=== PATIENT | female | born 1990 | race Caucasian/White ===

== ENCOUNTER 2018-09-07 18:55 | Inpatient (IN) | payer OTHER, SELFPAY ==
[2014-11-22 17:53] VITALS: BMI 25.2
[2018-09-07] MEDS: Lactated Ringers 1,000 ML 50 ML IV (19:30)
[2018-09-07 19:45] VITALS: BMI 39.6
[2018-09-07 19:49] LABS: Absolute Lymphocyte Count 2.46 X10^3/ul (0.83-4.51); Basophil# 0.01 X10^3/uL; Basophil% 0.1 % (0-1); Eosinophil# 0.08 X10^3/uL; Eosinophils% 0.8 % (0-5); Hematocrit 38.7 % (37-47); Lymphocyte # 2.46 X10^3/ul (4.0); Lymphocyte % 23.9 % (19-41); Mean Corp Hgb Conc 33.6 g/gl (32-36); Mean Corpuscular Hgb 29.6 pg (27.0-32.0); Mean Corpuscular Volume 88.2 fL (81-99); Mean Platelet Vol. 12.4 fl (6.2-12.0); Monocyte# 0.74 X10^3/uL; Monocyte% 7.2 % (0-10); Neutrophil # 6.99 X10^3/uL (2.7-7.7); Neutrophil % 67.7 % (47-70); Platelet Count 177 K/mm3 (150-450); RBC Distribution Width CV 14.3 % (11.6-14.6); Red Blood Count 4.39 M/mm3 (4.2-5.4); White Blood Count 10.3 K/mm3 (4.4-11.0)
[2018-09-07 19:51] LABS: POSITIVE COUNT NO; POSITIVE DIFFERENTIAL NO; POSITIVE MORPHOLOGY NO
[2018-09-07] MEDS: 0.9% Normal Saline 100 ML IV.SOLN. INTRA-UTER (20:08)
--- NOTE | 2018-09-07 20:17 | HP.PCM_ITS ---
History Date of Admission: 09/07/18 Final SACHA: 08/31/18 Final SACHA Source: LMP Gestational age: 41 Weeks and 0 Days History of this : This is a 28 year-old, G 1P0 @ 41 weeks for IOL due to post dates. pt reports no bleeding, or LOF. was seen in office earlier today for Dec FM but reports good FM since having NST done earlier. pt has LGA baby Last EFW was 4376grams on 08/26/18. Allergies No Known Allergies Allergy (Verified 09/07/18 19:24) Home Medications: Home Medications Loratadine [Claritin] 10 mg PO DAILY 09/07/18 Pnv No.95/Ferrous Fum/Folic AC [ Caplet] 1 each PO DAILY 09/07/18 Pyridoxine HCl [Vitamin B-6] 100 mg PO DAILY 09/07/18 Smoking Status: Never smoker Alcohol: None Number of Fetus(es): 1 Heart Tracin mod kiera, + accels, No decels TOCO Analysis: occasional History Past Pregnancies: Past Pregnancies Delivery Date Name GA/Weeks Outcome Route Weight Gender Labor Length Anesthesia Delivery Location Provider FOB Labs: GBS Neg, O+, RUB imm, Syphilis neg, HIV neg, HEP B neg Expected Infant Delivery Method: Spontaneous Vaginal Review of Systems Constitutional: Denies: Anorexia Eyes: Denies: Blurred vision HEENT: Denies: Head Aches Gastrointestinal: Denies: Abdominal Pain Physical Exam General: Alert, Oriented x3 Abdomen: Soft, Non Tender, Gravid Neurological: Cranial nerves II-XII grossly intact LANGUAGE INSTRUCTOR: Normal external genitalia Estimated gestational size: Large for gestational age Presentation: Cephalic Cervix Dilation (cm): 2.5 Station: -1 Effacement (%): 70 Assessment/Plan This is a 28 year-old, G 2P1 @ 41 weeks here for IOL for post dates, LGA fetus 1) admit to L&D 2) monitor FHR/toco 3) pitocin and elmore (placed) 4) anticipate . 5) epidural if requested for pain 6) monitor VS
[2018-09-07] MEDS: Oxytocin 30 units/NS 500 ml 30 UNITS/500 ML IV.SOLN IV (20:22)
[2018-09-07 21:36] LABS: International Normalized Ratio 1.2; Prothrombin Time (Protime)PT. 15.1 SECONDS (11.7-14.9)
[2018-09-07 21:37] LABS: Partial Thromboplast Time 28.8 Seconds (24.1-36.2)
[2018-09-07 21:58] LABS: AST(SGOT) 40 U/L (15-37); Alanine Aminotransfer ALT/SGPT 20 U/L (13-56); Creatinine, Serum 0.67 mg/dL (0.55-1.02); EST Glomerular Filtration Rate 112 mL/min (>60); Est Glom Filt Rate - Afr Amer 135 mL/min (>60); Estimated Creatinine Clearance 145.55 ml/min; Protein, Urine (Random) 29.1 mg/dL (<11.9); Protein:Creat Ratio 436 mg/g CRE (0-200); Uric Acid 4.1 mg/dL (2.6-6.0)
[2018-09-07] MEDS: 0.9% Saline Lock 10 ML Syringe IV (22:38)
[2018-09-08] MEDS: Nalbuphine 10 MG/ML Ampul IV (06:45)
--- NOTE | 2018-09-08 08:36 | PCM.PN.BLA ---
Progress Note S: Patient comfortable O: cvx - 4-5/80/-1 AROM clear fluid. FSE & IUPC placed fhts 145 with mod variability, accels, variables tocos - Q3 min A&P: continue pitocin induction Patient plans for mirena IUD after 6wk check up and not immediately PP
[2018-09-08] MEDS: Lactated Ringers 1,000 ML 50 ML IV ×3 (10:26→17:56)
[2018-09-08] MEDS: fentaNYL-bupivacaine (epidural) 100 ML BAG EPIDURAL ×3 (11:14→21:25)
[2018-09-08] MEDS: Acetaminophen 325 MG Tablet PO ×2 (15:05→22:45)
--- NOTE | 2018-09-08 18:09 | PCM.PN.BLA ---
Progress Note S; Patient comfortable with epidural O: cvx - ant lip/C/0 fhts 140 with mod variability, accels tocos Q2-3 min A&P: labor down Anterior lip is reducible Anesthesia asked to decrease epidural
[2018-09-08] MEDS: Sodium Citrate/Citric Acid 30 ML UDC PO (23:22)
[2018-09-09] VITALS (25 sets, daily range): BP systolic 92–127; BP diastolic 44–75; PULSE 84–113; RESP 15–18; TEMP 35.9–37.3; O2SAT 94–100
[2018-09-09] MEDS: Oxytocin 30 units/NS 500 ml 30 UNITS/500 ML IV.SOLN 167 UNITS IV (00:10)
[2018-09-09] MEDS: Ketorolac 30 MG/ML Syringe IV ×4 (00:15→18:06)
--- NOTE | 2018-09-09 01:04 | OP.PCM_ITS ---
Report of Operation Date of Procedure: 09/09/18 Pre-Operative Diagnosis: Failure to descend Post-Operative Diagnosis: Same Description of Surgical Findings:: Normal uterus & right adnexa. Left adnexa surgically absent. bit setter: Sandra Silver Type of Anesthesia:: Epidural Delivery Final SACHA: 08/31/18 Gestational age: 41 Weeks and 2 Days Indications: Patient was c/c/+1 and pushing for 4 hours with minimal descent. Also fetus was suspected LGA. Indications for : Failure of Descent, Isolated Maternal Fever Description of Procedure: Patient taken to OR where epidural anesthesia was dosed. She was prepped and draped in normal sterile fashion in a dorsal lithotomy position with a leftward tilt. After ensuring adequacy of anesthesia the Pfannensteil skin incision was made and carried through to the underlying fascia with a bovie. The fascia was incised in the midline and carried laterally with the Mullins scissors. The rectus muscles were in the midline and the peritoneum was entered bluntly. The bladder flap was dissected down carefully with the Metzenbaum scissors and blunt dissection. The uterus was incised in a transverse fashion and then incision extended with cephalocaudad traction. The fetus was vertex and the head was brought to the incision with the RN elevating the head vaginally. With good fundal pressure the head delivered. Gentle traction placed on head to allow delivery of anterior & posterior shoulders. No excess traction placed on head. The body delivered easily. The 3VC cord was clamped and cut. The handed off to the waiting RN. The placenta was delivered w/ gentle traction and fundal massage and the uterus was exteriorized and cleared of all clots and debris. The uterine incision was closed with 1 vicryl suture in a running locked fashion. The bovie was used to further obtain further hemostasis of the uterine incision. The bladder was backfilled with saline to confirm integrity. A second imbricating layer of monocryl was placed. The uterus was returned to the peritoneal cavity. A figure of 8 suture was placed on the left side of the uterine incision to obtain further hemostasis. The pelvis was irrigated & then cleared of all clots and debris. The uterine incision was reexamined and found to be hemostatic. Some gelacio was placed over the uterine incision due to the denuded areas. The fascia was closed with looped PDS suture in a running standard fashion. The subcutaneous tissue was examined & any bleeding bovie cauterized. The subcutaneous tissue was reapproximated with plain gut suture. The skin was closed in a subcuticular fashion by the SEWING MACHINES SALESPERSON with me present in the labor and delivery suite. I performed the remainder of the procedure w/ assistance. Amniotic Membrane Rupture Type: Artificial Amniotic Fluid Description: Clear Placenta Disposition: [facility] Drain: Bryson to straight drain Fluids Replaced: 1500ml Cord Entanglement: None Nuchal Cord Compression: Without compression Cord Vessel Description: 3 Vessels Esitmated Blood Loss (ml): 800ml Infant Gender: Male (1 minute): 7 (5 minute): 9 Delayed cord clamping: No Pre-op Antibiotic Given: Clindamycin 600mg IV x1 and Gentamicin 1.5mg/kg IV x1 - azithromycin 500mg IV
--- NOTE | 2018-09-09 02:00 | NURSING ---
Decision made by Dr. Alatorre and pt on dayshift 09/08 to administer Mirena in office at 6 week appointment.
--- NOTE | 2018-09-09 04:00 | NURSING ---
Removed epidural cath, blue tip intact.
[2018-09-09] MEDS: Lactated Ringers 1,000 ML 100 ML IV ×2 (04:21→14:14)
--- NOTE | 2018-09-09 04:21 | NURSING ---
Report given to Connie GONCALVES
--- NOTE | 2018-09-09 13:08 | PCM.PN.OB ---
Subjective: Pt doing well. Not yet ambulating or voiding. Imer reg diet without N/V. No lightheadedness, dizziness, CP, SOB, leg pain. but zaki not interested in latching, working with . Pain is well controlled. - Physical Exam General: Alert, No apparent distress HEENT: Atraumatic Lungs: - - No increased resp effort Abdomen: Soft, Non Tender, - - Dressing clean and intact Extremities: No Calf Tenderness Skin: No rashes Neurological: Neuro grossly intact Psych/Mental Status: Normal Affect, Appropriate Vital Signs Temp Pulse Resp BP Pulse Ox 97.6 F L 84 18 100/54 L 98 09/09/18 08:00 09/09/18 08:00 09/09/18 08:00 09/09/18 08:00 09/09/18 08:00 Oxygen Delivery Method Room Air Weight: 292 lb 6.4 oz Body Mass Index (BMI) 39.6 Intake and Output for Last 24 Hours 09/07/18 09/08/18 09/09/18 23:59 23:59 23:59 Intake Total 5681 / 5681 2935 / 2935 Output Total 1850 / 1850 560 / 560 Balance 3831 / 3831 2375 / 2375 Medical Necessity - Tobacco Use Smoking Status: Never smoker Assessment/Plan Post-op from section for FTP - Pt doing well - Afebrile - , working with - Dispo: Routine post-op care
[2018-09-09] MEDS: 0.9% Saline Lock 10 ML Syringe IV (18:16)
--- NOTE | 2018-09-09 22:17 | NURSING ---
2145 Assisted pt up to chair for first time post op. Bryson removed and pericare done. Pt tolerated well.
[2018-09-10] MEDS: Ketorolac 30 MG/ML Syringe IV ×3 (00:09→12:01)
[2018-09-10] MEDS: 0.9% Saline Lock 10 ML Syringe IV ×4 (00:11→18:09)
[2018-09-10 00:14] VITALS: PULSE 106; RESP 18; O2SAT 99
[2018-09-10 01:57] VITALS: BP 125/67; PULSE 84; RESP 16; TEMP 36.5; O2SAT 99
[2018-09-10 06:53] LABS: Hematocrit 30.2 % (37-47); Hemoglobin 9.9 g/dl (12.0-15.0); Mean Corp Hgb Conc 32.8 g/gl (32-36); Mean Corpuscular Hgb 29.6 pg (27.0-32.0); Mean Corpuscular Volume 90.1 fL (81-99); Mean Platelet Vol. 12.8 fl (6.2-12.0); Platelet Count 138 K/mm3 (150-450); RBC Distribution Width CV 15.6 % (11.6-14.6); RBC Distribution Width SD 50.4 fl (35.1-43.9); Red Blood Count 3.35 M/mm3 (4.2-5.4); White Blood Count 16.8 K/mm3 (4.4-11.0)
[2018-09-10 06:56] LABS: Scan Indicated on CBC? Y/N NO
[2018-09-10 08:40] VITALS: BP 122/75; PULSE 98; RESP 18; TEMP 36; O2SAT 95
--- NOTE | 2018-09-10 09:56 | PCM.PN.OB ---
Subjective: Pt doing well this morning. Some discomfort from her incision after walking. Pain controlled with Toradol. Imer reg diet without N/V. Ambulating and spont voiding. Lochia normal. with some difficulty. Denies lightheadedness, dizziness, CP, SOB, leg pain. - Physical Exam General: Alert, No apparent distress HEENT: Atraumatic Lungs: - - No increased resp effort Abdomen: Soft, - - ATTP, dressing with slight shadowing on it and otherwise clean and intact Extremities: No Calf Tenderness, Edema - Trace edema bilateral LE's Skin: No rashes Neurological: Neuro grossly intact Psych/Mental Status: Normal Affect, Appropriate Vital Signs Temp Pulse Resp BP Pulse Ox 96.8 F L 98 18 122/75 H 95 09/10/18 08:40 09/10/18 08:40 09/10/18 08:40 09/10/18 08:40 09/10/18 08:40 Oxygen Delivery Method Room Air Weight: 292 lb 6.4 oz Body Mass Index (BMI) 39.6 Intake and Output for Last 24 Hours 09/08/18 09/09/18 09/10/18 23:59 23:59 23:59 Intake Total 5681 / 5681 4535 / 4535 Output Total 1850 / 1850 3160 / 3160 1300 / 1300 Balance 3831 / 3831 1375 / 1375 -1300 / -1300 Laboratory Tests Past 24 Hrs 09/10/18 06:00 WBC 16.8 H RBC 3.35 L Hgb 9.9 L Hct 30.2 L MCV 90.1 MCH 29.6 MCHC 32.8 RDW 15.6 H RDW Differential 50.4 H Plt Count 138 L MPV 12.8 H Medical Necessity - Tobacco Use Smoking Status: Never smoker Assessment/Plan POD#2 s/p PLTCS for FTP - AF, VSS - Doing well - Pain controlled - - Dispo: Routine post-op care. Pt desires to stay the night tonight
[2018-09-10 15:00] VITALS: BP 142/83; PULSE 95; RESP 18; TEMP 36.3; O2SAT 98
[2018-09-10] MEDS: Ibuprofen 600 MG Tablet PO (18:17)
[2018-09-10 19:34] VITALS: BP 153/88; PULSE 114; RESP 18; TEMP 37; O2SAT 96
[2018-09-11] VITALS (8 sets, daily range): BP systolic 120–148; BP diastolic 64–90; PULSE 92–105; RESP 16–18; TEMP 36.1–36.7; O2SAT 95–100
[2018-09-11] MEDS: Ibuprofen 600 MG Tablet PO ×3 (00:35→17:23)
--- NOTE | 2018-09-11 09:24 | PCM.PN.OB ---
Subjective: Pt doing well. Pain controlled. Ambulating and voiding without difficulty. Imer reg diet without N/V. Had BM. Denies lightheadedness, dizziness, REAL, CP, SOB, leg pain. with some difficulty. Lochia decreasing. - Physical Exam General: Alert, No apparent distress HEENT: Atraumatic Lungs: - - No increased resp effort Abdomen: Soft, Non Tender, - - fundus difficult to palpate given body habitus, dressing w/ minimal shadowing and otherwise c/d/i Extremities: No Calf Tenderness, Edema - trace edema bilaterally Skin: No rashes Neurological: Neuro grossly intact Psych/Mental Status: Normal Affect, Appropriate Vital Signs Temp Pulse Resp BP Pulse Ox 97.6 F L 96 16 142/89 H 96 09/11/18 07:45 09/11/18 07:45 09/11/18 07:45 09/11/18 07:45 09/11/18 07:45 Oxygen Delivery Method Room Air Weight: 292 lb 6.4 oz Body Mass Index (BMI) 39.6 Intake and Output for Last 24 Hours 09/09/18 09/10/18 09/11/18 23:59 23:59 23:59 Intake Total 4535 / 4535 Output Total 3160 / 3160 1300 / 1300 Balance 1375 / 1375 -1300 / -1300 Medical Necessity - Tobacco Use Smoking Status: Never smoker Assessment/Plan POD#3 s/p PLTCS - Occasional tachycardia. O2 saturations are good, and pt not requiring oxygen. Pt denies CP or SOB. Likely secondary to anemia. Continue to monitor today. Will give rx for iron supplement going home - BP's were initially normal , now has had a few mild range BP's. Will monitor today and if persistently mild, get pre-e labs and start Labetalol BID - Meeting milestones for discharge - Dispo: Routine post-op care today. Pt wants additional assistance today with . Cont to monitor BP, and will further determine discharge later today
--- NOTE | 2018-09-11 09:35 | DCINST_ITS ---
Discharge Diet: No Restrictions Discharge Activity: May not drive while taking narcotic pain medications., May Shower May resume sexual activity in: 4-6 weeks Weight Bearing Status: Weight bearing as tolerated Lifting Restrictions: No lifting greater than 20 pounds Call your doctor if your incision/area has: Sudden Increased Bleeding, Increased Pain/ Swelling, Increased Redness, Foul Smelling Discharge, Swelling at the incision site Call your doctor if you observe: Fever of 101 or Higher, Inability to urinate, Inability to have a bowel movement, Using more than one pad per hour, Shortness of breath, Dizziness, Chest pain, Increased palpitations (irregular heartbeat), Calf discomfort, Uncontrolled pain Suture Line Care: Avoid Pulling/Pushing, Avoid Pinching/Bending Remove Dressing in (days):: 7 Instructions: Discharge Instructions for Section () Additional Instructions: If you experience any of the following, contact your healthcare provider. * Bleeding that soaks a pad every hour for 2 hours * Fever 100.4 or higher * Unrelieved incision or abdominal pain * Swelling, redness, discharge or bleeding from your incision or episiotomy site * Your incision begins to separate * Problems urinating (including inability to urinate or burning while urinating). * Visual changes * Severe headache * Flu-like symptoms * Pain or redness in one of both of your breasts * Pain, warmth, tenderness or swelling in your legs, especially the calf area * Frequent nausea and vomiting * Symptoms of depression or anxiety If you experience any of the following, call 911 or go to the nearest Emergency Room. * Chest pain * Problems breathing * Seizure activity * Partial or complete paralysis of a body part, slurred speech, weakness or drooping of the face, or a sudden inability to walk or hold your balance Allergies/Adverse Reactions: Allergies No Known Allergies Allergy (Verified 09/07/18 19:24) Medications to take at Discharge Loratadine [Claritin] 10 mg PO DAILY 09/07/18 Pnv No.95/Ferrous Fum/Folic AC [ Caplet] 1 each PO DAILY 09/07/18 Pyridoxine HCl [Vitamin B-6] 100 mg PO DAILY 09/07/18 Ferrous Sulfate 325 mg PO DAILY #30 tab 09/11/18 Oxycodone HCl/Acetaminophen [Percocet 5/325] 1 tab PO Q6H PRN PRN 7 Days #28 tab 09/11/18 The following prescriptions were given: Oxycodone HCl/Acetaminophen [Percocet 5/325] 1 tab PO Q6H PRN PRN 7 Days #28 tab PRN Reason: Pain Ferrous Sulfate 325 mg PO DAILY #30 tab Follow-Up: Call to make an appointment with your doctor for an incision check in 1-2 weeks. You will also need a 6 week post- follow up appointment. Test results from this visit will be discussed in further detail at your follow- up appointment, if applicable. Please Follow Up With: Rito Alatorre When: 1 week for incision check and 6 weeks for visit Primary Care Physician: Kanchan Cunha MD [Primary Care Provider] -
--- NOTE | 2018-09-11 14:40 | NURSING ---
Bedside shift report given to Shannan Ramos RN. She will assume care of patient at this time.
[2018-09-11] MEDS: Labetalol 200 MG Tablet PO ×2 (17:20→22:11)
[2018-09-12 00:30] VITALS: BP 121/65; PULSE 85; RESP 18; TEMP 36.6
[2018-09-12 06:00] VITALS: BP 125/71; PULSE 87; RESP 18; TEMP 36.4
[2018-09-12 08:00] VITALS: BP 122/78; PULSE 87; RESP 20; TEMP 36.6; O2SAT 97
[2018-09-12] MEDS: Ibuprofen 600 MG Tablet PO (08:05)
--- NOTE | 2018-09-12 08:58 | PCM.PN.OB ---
Subjective: Doing well per patient and nursing staff. Ambulating and taking PO without difficulty. with shield and assistance from , doing well. Planning D/C home today - Physical Exam General: Alert, Oriented x3, Cooperative HEENT: Atraumatic, Normocephalic Neck: Trachea Midline Lungs: Clear to auscultation, Normal air movement, No rhonchi, No wheeze Cardiovascular: Regular rate, Regular Rhythm, No murmurs Abdomen: Bowel Sounds Present, Soft, - - Dressing dry and intact. Fundus firm 3 below U Extremities: Edema - +1 BLE edema, pitting. NO clonus Neurological: Deep Tendon Reflexes 2+/4 and Symmetrical Psych/Mental Status: Normal Affect, Appropriate Vital Signs Temp Pulse Resp BP Pulse Ox 97.9 F 87 20 H 122/78 H 97 09/12/18 08:00 09/12/18 08:00 09/12/18 08:00 09/12/18 08:00 09/12/18 08:00 Oxygen Delivery Method Room Air Weight: 292 lb 6.4 oz Body Mass Index (BMI) 39.6 Intake and Output for Last 24 Hours 09/10/18 09/11/18 09/12/18 23:59 23:59 23:59 Output Total 1300 / 1300 Balance -1300 / -1300 Medical Necessity - Tobacco Use Smoking Status: Never smoker Assessment/Plan A: POD #4 LTCS Gestational HTN P: 1) D/C home today 2) Follow up in 4 days for BP check in office. Labetalol 200mg PO BID for discharge. Will also follow up in 2 weeks and 6 weeks . 3) Discharge and instructions given. Doing well with and assistance from services.
--- NOTE | 2018-09-12 09:00 | PCM.DC.SUM ---
Discharge Date and Diagnosis Date of Admission: 09/07/18 Hospital Course and Treatment Summary of Care Provided: The patient is a 28 year old F [ admitted for IOL due to post dates at 41 weeks. ] Patient was c/c/+1 and pushing for 4 hours with minimal descent. Also fetus was suspected LGA. Failure of Descent, Isolated Maternal Fever. LTCS by . POD # 3 patient with elevated blood pressures. Started on Labetalol 100mg PO BID and discharge home with prescription. - Physical Exam Vital Signs Temp Pulse Resp BP Pulse Ox 97.9 F 87 20 H 122/78 H 97 09/12/18 08:00 09/12/18 08:00 09/12/18 08:00 09/12/18 08:00 09/12/18 08:00 Oxygen Delivery Method Room Air Weight: 292 lb 6.4 oz Body Mass Index (BMI) 39.6 Intake and Output for Last 24 Hours 09/10/18 09/11/18 09/12/18 23:59 23:59 23:59 Output Total 1300 / 1300 Balance -1300 / -1300 Discharge Diet: No Restrictions Discharge Activity: May not drive while taking narcotic pain medications., May Shower May resume sexual activity in: 4-6 weeks Weight Bearing Status: Weight bearing as tolerated Call your doctor if your incision/area has: Sudden Increased Bleeding, Increased Pain/ Swelling, Increased Redness, Foul Smelling Discharge, Swelling at the incision site Call your doctor if you observe: Fever of 101 or Higher, Inability to urinate, Inability to have a bowel movement, Using more than one pad per hour, Shortness of breath, Dizziness, Chest pain, Increased palpitations (irregular heartbeat), Calf discomfort, Uncontrolled pain Suture Line Care: Avoid Pulling/Pushing, Avoid Pinching/Bending Remove Dressing in (days):: 7 Home Medications: Medications to take at Discharge Loratadine [Claritin] 10 mg PO DAILY 09/07/18 Pnv No.95/Ferrous Fum/Folic AC [ Caplet] 1 each PO DAILY 09/07/18 Pyridoxine HCl [Vitamin B-6] 100 mg PO DAILY 09/07/18 Ferrous Sulfate 325 mg PO DAILY #30 tab 09/11/18 Ferrous Sulfate 325 mg PO DAILY #30 tab 09/11/18 Oxycodone HCl/Acetaminophen [Percocet 5/325] 1 tab PO Q6H PRN PRN 7 Days #28 tab 09/11/18 Oxycodone HCl/Acetaminophen [Percocet 5/325] 1 tab PO Q6H PRN PRN 7 Days #28 tab 09/11/18 Labetalol [Trandate (Beta Mat)] 200 mg PO BID #60 tab 09/12/18 Following Prescrptions Were Given to Patient: Oxycodone HCl/Acetaminophen [Percocet 5/325] 1 tab PO Q6H PRN PRN 7 Days #28 tab PRN Reason: Pain Oxycodone HCl/Acetaminophen [Percocet 5/325] 1 tab PO Q6H PRN PRN 7 Days #28 tab PRN Reason: Pain Ferrous Sulfate 325 mg PO DAILY #30 tab Ferrous Sulfate 325 mg PO DAILY #30 tab Labetalol [Trandate (Beta Mat)] 200 mg PO BID #60 tab Primary Care Physician: Kanchan Cunha MD [Primary Care Provider] - Please Follow Up With: Rito Alatorre When: 1 week for incision check and 6 weeks for visit Patient Instructions: Discharge Instructions for Section () Medical Necessity - Tobacco Use Smoking Status: Never smoker Meaningful Use Info Meaningful Use Diagnoses (Choose all that apply): None applicable
[2018-09-12] MEDS: Labetalol 200 MG Tablet PO (10:19)
== END 2018-09-12 11:40 | disposition home or self-care (01) | DRG 787 ==
PROVIDERS: Obstetrics & Gynecology; Admitting Provider Obstetrics & Gynecology; Family Provider Family Medicine; PCP Family Medicine; Referring Provider Obstetrics & Gynecology; Visit Provider Obstetrics & Gynecology
DX: O32.4XX0 Maternal care for high head at term, not applicable or unspecified (principal); O75.2 Pyrexia during labor, not elsewhere classified; O36.63X0 Maternal care for excessive fetal growth, third trimester, not applicable or unspecified; O48.0 Post-term pregnancy; Z3A.41 41 weeks gestation of pregnancy; Z37.0 Single live birth
CPT/HCPCS: 59025; 59050; 82565; 82570; 84156; 84450; 84460; 84550; 85025; 85027; 85610; 85730; 86850; 86900; 99218; J7120; A4216; G0378; J2405

== ENCOUNTER 2019-06-29 21:29 | Emergency (ER) | payer OTHER, SELFPAY ==
[2019-06-29 21:31] VITALS: BP 130/75; PULSE 125; RESP 16; TEMP 36.8; O2SAT 98; BMI 35.6
[2019-06-29 22:17] VITALS: RESP 16
[2019-06-29 22:19] LABS: Bacteria 0 SEEN /hpf (None Seen); Mucous, Urine 0 SEEN /hpf (<or=2+); White Blood Cells 0 SEEN /hpf (0-5)
[2019-06-29 22:21] VITALS: BP 147/92; PULSE 107; RESP 14; O2SAT 100
[2019-06-29 22:25] LABS: Color, Urine Yellow (Yellow); Glucose, Dipstick Normal (Normal); Ketone-Dipstick Negative (Negative); Leukocyte Esterase-Dipstick Negative /ul (Negative); Nitrite-Dipstick Negative (Negative); Occult Blood-Urine 50 /ul (Negative); Protein-Dipstick 15 mg/dl (Negative); Specific Gravity, Urine 1.015 (1.002-1.030); Urine Bilirubin Dipstick Negative (Negative); Urine Clarity Sl. Cloudy (Clear); Urine Urobilinogen Normal (Normal); Urine pH 6.5 (5.0 - 8.0)
[2019-06-29 22:27] LABS: Internal QC Validated? YES +Cl - CLEAR BKGD; Pregnancy, Urine Negative Negative
--- NOTE | 2019-06-29 22:29 | US_ITS ---
HISTORY: RLQ PAIN -TONIGHT SEVERE R/O TORSION prior appendectomy and left oophorectomy EXAMINATION: US Pelvis Non-OB Complete TECHNIQUE: Transvaginal (for optimal evaluation of the adnexa) pelvic ultrasound was performed. Grayscale, spectral waveform, and color flow Doppler evaluation of the adnexa. COMPARISON: CT abdomen and pelvis 11/22/2014 FINDINGS: The uterus is normal in size measuring 5.7 x 2.9 x 4.1 cm. The uterine myometrium shows a homogenous echotexture. Uniform endometrium which is normal in size measuring 0.4 cm in diameter. The right ovary is identified and shows normal size and echogenicity. The right ovary measures 3.4 x 1.7 x 2.1 cm. Right ovarian blood flow. No free fluid or acute pelvic disease identified. US/Transvaginal Non- IMPRESSION: 1. Normal uterus and right ovary. 2. No free fluid or acute pelvic disease identified. 3. Prior appendectomy and left oophorectomy. at 0036 Reported and signed by: Pedro Washington MD Electronically Signed: Pedro Washington, at 0:35 EST Tel , Service support ,
[2019-06-29 22:35] LABS: Red Blood Cells-Urine 0-5 SEEN /hpf (0-5)
[2019-06-29 22:36] LABS: Squamous Epithelial Cells - UA 0-5 SEEN /hpf (5-10)
[2019-06-29 23:06] LABS: Absolute Lymphocyte Count 2.36 X10^3/uL (0.83-4.51); Absolute Neutrophil Count 7.7 X10^3/uL (2.0-7.7); Basophil# 0.03 X10^3/uL; Basophil% 0.3 % (0-1); Eosinophil# 0.09 X10^3/uL; Eosinophils% 0.8 % (0-5); Hematocrit 43.6 % (37-47); Hemoglobin 14.3 g/dL (12.0-15.0); Lymphocyte # 2.36 X10^3/ul (4.0); Lymphocyte % 21.5 % (19-41); Mean Corp Hgb Conc 32.8 g/dL (32-36); Mean Corpuscular Hgb 28.2 pg (27.0-32.0); Monocyte% 7.3 % (0-10); NRBC Flagged by Analyzer 0 % (0-5); Neutrophil # 7.66 X10^3/uL (2.7-7.7); Neutrophil % 69.9 % (47-70); Platelet Count 208 K/mm3 (150-450); RBC Distribution Width CV 12.3 % (11.6-14.6); RBC Distribution Width SD 38.4 fl (35.1-43.9); Red Blood Count 5.07 M/mm3 (4.2-5.4)
--- NOTE | 2019-06-29 23:10 | ED.RN ---
PATIENT STUCK MULTIPLES TIMES, UNABLE TO GET IV. DR. BAILEY NOTIFIED. OKAY TO HOLD OFF ON STARTING AN IV FOR RIGHT NOW. PATIENT IS AGREEABLE TO THIS PLAN.
--- NOTE | 2019-06-29 23:23 | ED.DCSUM_ITS ---
History of Present Illness Chief Complaint: Flank Pain Informant: Patient Onset: Today Context: Gradual Onset Timing: Waxes and wanes Narrative: Patient is a 28-year-old female with history of left-sided ovarian torsion with subsequent surgical removal presenting with right-sided flank and pelvic pain. Patient states it feels like her prior torsion which was in 2014. Patient states that she gets waves of pain and has some radiation of pain down to her vagina. She denies any associated nausea or vomiting. She denies any urinary symptoms. Her last menstrual period was 1 month ago. She is on oral contraceptives and is not concerned for . She does not have a history of kidney stones. She denies any other complaints at this time. Past Medical History - Allergies and Home Meds Allergies/Adverse Reactions: Allergies No Known Allergies Allergy (Verified 06/29/19 21:33) Primary Care Physician: Kanchan Cunha MD [Primary Care Provider] - Past Medical History: - - History of ovarian torsion Surgical History: appendectomy, - - Oophorectomy- left Lives: With Family Smoking Status: Never smoker Review of Systems General: Denies: Chills, Fever, Sweats Eyes: Denies: Visual changes - bilaterally, Diplopia ENT: Denies: Rhinorrhea, Sore throat Cardiovascular: Denies: Chest pain, Palpitations Respiratory: Denies: Dyspnea, Cough, Dyspnea on exertion Gastrointestinal: Reports: Abdominal pain. Denies: Nausea, Vomiting, Diarrhea, Melena, Hematochezia Genitourinary: Reports: - - Vaginal pain. Denies: Dysuria, Hematuria, Frequency Musculoskeletal: Denies: Back pain, Extremity Pain Skin: Denies: Rash, Wounds Neurological: Denies: Headache, Weakness, Numbness Physical Exam Vital Signs/Narrative: Vital Signs Temp Pulse Resp BP Pulse Ox 06/29/19 22:21 107 H 14 147/92 H 100 06/29/19 22:17 16 06/29/19 21:31 98.3 F 125 H 16 130/75 H 98 Inital Vital Signs reviewed: Yes General: Well nourished, Well developed, No Acute Distress Head: Normocephalic, Atraumatic Eyes: Perrl, EOMI ENT: Moist mucous membranes, No rhinorrhea Neck: Supple, Nontender Cardiovascular: Regular rate, Regular rhythm, No murmurs Respiratory: No distress, CTA bilaterally, Chest nontender Abdomen: Soft, Nontender, Nondistended, Normal bowel sounds. Negative for: Guarding, Rebound tenderness Back: Nontender, Normal Inspection. Negative for: CVA tenderness Extremities: Nontender, No edema Skin: Normal color, No rash Neurological: Alert, Oriented x3, Cranial nerves II-XII grossly intact, Normal Strength, Normal Sensation Psychological: Normal affect, Normal Mood Diagnostic/Tx/Re-eval Clinical Impression(s) from Imaging Studies Transvaginal US 06/29/19 22:29 IMPRESSION: 1. Normal uterus and right ovary. 2. No free fluid or acute pelvic disease identified. 3. Prior appendectomy and left oophorectomy. at 0036 Reported and signed by: Pedro Washington MD Electronically Signed: Pedro Washington, at 0:35 EST Tel , Service support , Laboratory Data 06/29/19 06/29/19 06/29/19 22:10 22:10 22:52 WBC 11.0 RBC 5.07 Hgb 14.3 Hct 43.6 MCV 86.0 MCH 28.2 MCHC 32.8 RDW Std Deviation 38.4 RDW Coeff of Ophelia 12.3 Plt Count 208 MPV 11.0 Immature Gran % (Auto) 0.200 Neut % (Auto) 69.9 Lymph % (Auto) 21.5 Gaines % (Auto) 7.3 Eos % (Auto) 0.8 Baso % (Auto) 0.3 Absolute Neuts (auto) 7.7 Absolute Lymphs (auto) 2.36 Nucleated RBC % 0 Sodium Potassium Chloride Carbon Dioxide Anion Gap BUN Creatinine Estim Creat Clear Calc Est GFR (MDRD) Af Amer Est GFR (MDRD) Non-Af BUN/Creatinine Ratio Glucose Calcium Total Bilirubin AST ALT Alkaline Phosphatase Total Protein Albumin Globulin Albumin/Globulin Ratio Urine Color Yellow Urine Clarity Sl. Cloudy Urine pH 6.5 Ur Specific [place] 1.015 Urine Protein 15 H Urine Glucose (UA) Normal Urine Ketones Negative Urine Occult Blood 50 H Urine Nitrite Negative Urine Bilirubin Negative Urine Urobilinogen Normal Ur Leukocyte Esterase Negative Urine RBC 0-5 SEEN Urine WBC 0 SEEN Ur Squamous Epith Cells 0-5 SEEN Urine Bacteria 0 SEEN Urine Mucus 0 SEEN Urine Test Negative 06/29/19 22:52 WBC RBC Hgb Hct MCV MCH MCHC RDW Std Deviation RDW Coeff of Ophelia Plt Count MPV Immature Gran % (Auto) Neut % (Auto) Lymph % (Auto) Gaines % (Auto) Eos % (Auto) Baso % (Auto) Absolute Neuts (auto) Absolute Lymphs (auto) Nucleated RBC % Sodium 136 Potassium 5.0 Chloride 108 H Carbon Dioxide 23.0 Anion Gap 5 BUN 9 Creatinine 0.76 Estim Creat Clear Calc 128.31 Est GFR (MDRD) Af Amer 117 Est GFR (MDRD) Non-Af 96 BUN/Creatinine Ratio 11.8 Glucose 116 H Calcium 9.0 Total Bilirubin 0.30 AST 33 ALT 22 Alkaline Phosphatase 78 Total Protein 8.1 Albumin 3.4 Globulin 4.7 H Albumin/Globulin Ratio 0.7 L Urine Color Urine Clarity Urine pH Ur Specific [place] Urine Protein Urine Glucose (UA) Urine Ketones Urine Occult Blood Urine Nitrite Urine Bilirubin Urine Urobilinogen Ur Leukocyte Esterase Urine RBC Urine WBC Ur Squamous Epith Cells Urine Bacteria Urine Mucus Urine Test - Medical Decision Making Patient is evaluated for 1 day of right flank pain that seems to radiate to her vaginal area and has been worsening this evening. It seems to be colicky. Patient is very concerned because she has a history of ovarian torsion that she might be having another torsion. Pelvic ultrasound is obtained which does not show torsion and has normal blood flow to the right ovary. Patient not having any other vaginal symptoms. Urinalysis does show 50 blood with 0-5 red blood cells. Is otherwise normal. CBC and BMP are grossly unremarkable. Patient is counseled that this could be a kidney stone. She is offered a CT of the abdomen pelvis but declined stating she just like to go home and she is feeling better. Patient is given a dose of Tylenol emergency room. She was initially ordered morphine but declined it. Patient is well-appearing. She is hemodynamically stable. She is discharged home with instructions follow-up with her PCP. She will return the emergency room should she have worsening pain and like further evaluation for it. ED Disposition - Plan for ED Patient: Disposition: Home or Assisted Living Diagnosis: Right flank pain Instructions: FLANK PAIN, Uncertain Cause Referrals: Kanchan Cunha MD [Primary Care Provider] -
[2019-06-29 23:26] LABS: ALB/GLOB Ratio 0.7 RATIO (0.9-2.4); AST(SGOT) 33 U/L (15-37); Alanine Aminotransfer ALT/SGPT 22 U/L (13-56); Albumin, Serum 3.4 g/dL (3.2-5.0); Alkaline Phosphatase 78 U/L (45-117); Anion Gap 5 (5-15); BUN 9 mg/dL (7-18); BUN/Creat Ratio 11.8 RATIO (10-20); Chloride 108 mmol/L (98-107); Creatinine, Serum 0.76 mg/dL (0.55-1.02); EST Glomerular Filtration Rate 96 mL/min (>60); Est Glom Filt Rate - Afr Amer 117 mL/min (>60); Estimated Creatinine Clearance 128.31 ml/min; Globulin 4.7 g/dL (2.2-4.2); Glucose 116 mg/dL (74-106); Protein, Total 8.1 g/dL (6.4-8.2); Sodium Level 136 mmol/L (136-145)
[2019-06-29 23:53] VITALS: RESP 16
[2019-06-30] MEDS: Acetaminophen 500 MG Tablet 1000 MG PO (00:13)
[2019-06-30 00:20] VITALS: BP 129/83; PULSE 106; RESP 16; O2SAT 97
[2019-06-30 00:50] VITALS: RESP 16
== END 2019-06-30 00:52 | disposition home or self-care (01) ==
PROVIDERS: Emergency Provider Emergency Medicine; PCP Family Medicine
DX: R10.9 Unspecified abdominal pain (principal); Z90.721 Acquired absence of ovaries, unilateral; R10.2 Pelvic and perineal pain
CPT/HCPCS: 36415; 76830; 80053; 81001; 81025; 85025; 93976; 96361; 96374; 99283; J7030

== ENCOUNTER → 2020-05-06 12:08 | Outpatient (CLI) | payer OTHER, SELFPAY | PROVIDERS: PCP Family Medicine; Visit Provider Nurse Practitioner Family | DX: Z20.828 Contact with and (suspected) exposure to other viral communicable diseases (principal) | CPT/HCPCS: 87635; U0003 ==

== ENCOUNTER → 2020-10-17 14:05 | Outpatient (CLI) | payer OTHER, SELFPAY | PROVIDERS: PCP Family Medicine; Visit Provider Family Medicine | DX: N39.0 Urinary tract infection, site not specified (principal) | CPT/HCPCS: 87086; 87088; 87186 ==

== ENCOUNTER 2021-11-03 09:25 | Inpatient (IN) | payer OTHER, SELFPAY ==
--- NOTE | 2021-10-28 16:42 | PCM.HP.BLA ---
History and Physical Date of Admission: 11/03/21 Pre-Op History and Physical ? HPI: The patient is a 31 year old female presenting for pre-operative visit. She is scheduled for and salpignectomy for repeat elective cs and desires sterilization on 11/03/21. Procedure discussed along with risks, benefits and complications. Other alternatives discussed for management. Consent form signed? Yes. ? ? PAST MEDICAL HISTORY PAST MEDICAL HISTORY Diagnosis Date ? Complication of anesthesia ? ? Vomiting that started 12 hours after surgery ? Kidney stone 2019 ? Ovarian torsion 2014 ? LEFT OVARY ? hypertension ? ? ? PAST SURGICAL HISTORY PAST SURGICAL HISTORY Procedure Laterality Date ? APPENDECTOMY ? ? ? DELIVERY ONLY ? 09/09/2018 ? C/S low transverse ? F OVARIAN CYSTECTOMY ? 11/22/14 ? benign ? OOPHORECTOMY PARTIAL/TOTAL UNI/BI ? 11/22/14 ? Ovarian torsion - LSO performed ? ? ? CURRENT MEDICATIONS Current Outpatient Medications Medication Sig Dispense Refill ? pyridoxine, vitamin B6, (VITAMIN B-6) 25 mg tablet Take 25 mg by mouth four times daily. (Patient not taking: Reported on 06/23/2021 ) ? ? ? multivitamin (CLASSIC ) 28 mg iron- 800 mcg tab(s) Take 1 tablet by mouth once daily. ? ? ? loratadine (CLARITIN ORAL) Take by mouth as needed. ? No current facility-administered medications for this visit. ? ? ALLERGIES: Patient has no known allergies. ? PERSONAL HISTORY: SOCIAL HISTORY Social History ? Tobacco Use ? Smoking status: Never Smoker ? Smokeless tobacco: Never Used Vaping Use ? Vaping Use: Never used Substance Use Topics ? Alcohol use: Not Currently ? Drug use: No ? FAMILY HISTORY: FAMILY HISTORY FAMILY HISTORY Problem Relation Age of Onset ? Thyroid Mother ? ? Depression Mother ? ? Hypertension Father ? ? No Known Problems Sister ? ? Arthritis Maternal Grandmother ? ? Breast Cancer Maternal Grandmother ? ? Alcohol/Drug Maternal Grandfather ? ? ETOH ? Macular Degen Paternal Grandmother ? ? Heart Paternal Grandfather ? ? [place] ? No Known Problems Son ? ? ? REVIEW OF SYMPTOMS: negative except as noted above PHYSICAL EXAMINATION: ? VITALS: Blood pressure 120/74, weight 287 lb (130.2 kg), last menstrual period 02/03/2021. ? GENERAL: The patient is well nourished, well hydrated in no acute distress. , The patient is oriented to time, place, and person. NECK: full range of motion ABD: soft, gravid, non tender ? IMPRESSION: 31yo scheduled elective repeat cs at 39 weeks and salpingectomy ? ? PLAN: R/cs and salpingectomy ? Pt has been counseled on risks/benefits and alternatives of surgery including but not limited to anesthesia, bleeding, infection, injury to pelvic structures including bowel, bladder, ureters and vessels. Pt wishes to proceed with surgery at this time. Understands salpingectomy is permanent and risk of regret reviewed- declines LARC Pre and post op instructions reviewed. ? I have reviewed and updated past medical and surgical history, medications and allergies Sandra Mcneill MD
[2021-11-03] VITALS (21 sets, daily range): BP systolic 115–133; BP diastolic 58–83; PULSE 59–87; RESP 14–18; TEMP 36.1–36.8; O2SAT 96–100; BMI 38.9
[2021-11-03] MEDS: Lactated Ringers 1,000 ML 999 ML IV (10:00)
[2021-11-03 10:15] LABS: Absolute Neutrophil Count 5.6 X10^3/uL (2.0-7.7); Basophil# 0.02 X10^3/uL; Basophil% 0.2 % (0-1); Eosinophil# 0.09 X10^3/uL; Hematocrit 38.8 % (37-47); Lymphocyte % 25.4 % (19-41); Mean Corp Hgb Conc 33.5 g/dL (32-36); Mean Corpuscular Volume 89.6 fL (81-99); Mean Platelet Vol. 12.3 fl (6.2-12.0); Monocyte# 0.72 X10^3/uL; Monocyte% 8.3 % (0-10); NRBC Flagged by Analyzer 0 % (0-5); Neutrophil # 5.59 X10^3/uL (2.7-7.7); Neutrophil % 64.6 % (47-70); Platelet Count 187 K/mm3 (150-450); RBC Distribution Width CV 13.2 % (11.6-14.6); RBC Distribution Width SD 43.3 fl (35.1-43.9); Red Blood Count 4.33 M/mm3 (4.2-5.4); White Blood Count 8.7 K/mm3 (4.4-11.0)
[2021-11-03] MEDS: Acetaminophen 500 MG Tablet 1000 MG PO ×2 (11:05→19:09)
[2021-11-03] MEDS: Lactated Ringers 1,000 ML 150 ML IV (11:06)
[2021-11-03] MEDS: Sodium Citrate/Citric Acid 30 ML UDC PO (11:07)
--- NOTE | 2021-11-03 12:14 | FALS_PTH ---
PATIENT: BRENDA FRIAS LOC: [facility] U#:[id number] AGE/SX: 31/F ROOM: WP006 RE11/03/[address]: Dr. Sandra Silver, MDDOB: 1990 BED: 1 DIS: 11/05/2021 SPEC #: [id number] RECD: 11/03/21 14:57 STATUS: PASTOR SIDDHARTHA #: [id number] HUMBERTO: 11/03/21 12:[address]: Sandra Silver DEPT: SURGICAL PATHOLOGY RECD BY: Jared Espinal ENTERED: 11/04/21 12:03 SP TYPE: FALL TUBES OTHR DR: Dr. Kanchan Cunha MD Tissues: Fallopian tube Procedures: Surgery Specimen Level II HEADER OPERATION: Tubal ligation PRE-OP DIAGNOSIS: Sterilization TISSUE SUBMITTED: Fallopian tube MICROSCOPIC DIAGNOSIS Fallopian tube, salpingectomy: A fallopian tube, no pathologic diagnosis. MAGGY:sheila 11/05/2021 MICROSCOPIC DESCRIPTION Slides are reviewed. GROSS DESCRIPTION Received in fixative is one container labeled with the patient's name and designated fallopian tube. The specimen consists of a fallopian tube including fimbrial end measuring 7.5 cm in length and 0.5 cm in diameter. Sections reveal unremarkable cut surfaces. Cosmetologist sections are submitted in one cassette. / MAGGY:sheila 11/04/2021 TC:4 CPT: 81386
--- NOTE | 2021-11-03 12:43 | EX.PCM.OBRPT ---
Assessment & Plan (1) 39 weeks gestation of : (2) Previous delivery affecting : (3) Delivery by section: (4) Encounter for sterilization: Maternal Data Information Final SACHA Source: US <20 weeks Gestational age: 39 Details Operative Information Date of Procedure: 11/03/21 Pre-Operative Diagnosis: previous cs, 39 weeks, desires sterilization Post-Operative Diagnosis: same, live female Indications for : Repeat Elective and Desires elective sterilization Classification: Scheduled Procedure Type: - (right salpingectomy ) supervisor garment manufacturing #1: Heaven Bell Type of Anesthesia: Spinal Antibiotic Given: Ancef 3 grams IV x1 Drain: Bryson to straight drain Estimated Blood Loss: 600 Fluids Replaced: 1500 Procedure Start Time: 12:09 Procedure Stop Time: 12:48 Time of Delivery: 12:14 Findings Description of Procedure: After informed consent was obtained the patient was taken the operating room she was given spinal anesthesia. She was then placed in the supine position. She was prepped and draped in the normal sterile fashion. Anesthesia was found to be adequate. At this time a Pfannenstiel skin incision was made with a knife was carried down to the underlying layer of the fascia. The fascial incision was then extended laterally using curved Mullins scissor. Tensions was then turned to the superior aspect of the fascial edge was grasped with 2 straight Alfred clamps tented up and the rectus muscle dissected off sharply using curved Mullins scissor. Attention was then turned to the inferior aspect where again Alfred clamps were placed in the rectus muscles were tented up and the fascia was dissected off sharply using the curved Mullins scissor. Rectus muscles were then in the midline bluntly and peritoneum was entered bluntly. Gentle opposing traction was placed. At this time the vesicouterine peritoneum was identified. Scalpel was used to make a uterine incision in a low transverse fashion. The uterus was then entered bluntly gentle opposing traction was placed to extend this incision. Membranes were ruptured clear. Infant's head was brought to the uterine incision was delivered atraumatically. Cord was clamped and cut was handed to the waiting nursery team. The Placenta was removed from the uterus. The uterus was then removed from the abdominal cavity. The uterus was cleared of all clots and debris using a lap. At this time the uterine incision was reapproximated using #1 Vicryl in a running locked fashion. Second layer using 1 Vicryl [id number]-[id number] fashion were placed for hemostasis. Hemostasis was appreciated. Posterior cul-de-sac was then cleared of all clots and debris. Right tube and ovary appeared normal. Left tube and ovary were surgically absent. At this time the patient wished to proceed with salpingectomy. Cobb was used to grasp the fallopian tube and the LigaSure was used to coagulate and ligate along the mesosalpinx from the fimbriated end up to the cornuate and into the uterus. Tube was removed in its entirety. Good hemostasis was appreciated. Uterus was placed back in the abdominal cavity. Gutters were cleared of all clots and debris. Uterine incision was reevaluated and noted to be of excellent hemostasis. Forest was placed over the uterine incision. At this time the peritoneum and muscle were grasped with Kellys reapproximated using #2 Vicryl suture in a running fashion. Forest placed over rectus. Fascia was then reapproximated using #1 PDS in a running fashion. Subcu layer was reapproximated with #2 0 vicryl suture in an interrupted fashion. Forest placed in subcu layer. Subcu layer was closed using 4-0 Monocryl in a subcu fashion. Dry sterile dressing was applied. Instrument lap needle count correct ?2. Anticipated normal postoperative course. Presentation: Positive for Vertex Amniotic Membrane Rupture Type: Artificial Amniotic Fluid Description: Clear Placental Delivery Description: Spontaneous Placenta Disposition: [facility] Specimen(s) Sent to Pathology: right tube Cord Vessel Description: 3 Vessels Cord Entanglement: None Infant A Gender: Female (1 minute): 8 (5 minute): 9 Delayed Cord Clamping: Yes Complications Risks of Surgery Discussed w/Patient: Bleeding, Anesthesia Risks, Infection, Permanency, Injury to surrounding structure(s) including bowel and bladder and Availability of other non-permanent control options Complications: none
[2021-11-03] MEDS: Oxytocin 30 units/NS 500 ml 30 UNITS/500 ML IV.SOLN 167 UNITS IV (13:05)
[2021-11-03] MEDS: Ketorolac 30 MG/ML Syringe IV ×2 (13:38→19:22)
[2021-11-03] MEDS: Lactated Ringers 1,000 ML 100 ML IV (16:13)
[2021-11-04] VITALS (7 sets, daily range): BP systolic 114–134; BP diastolic 60–82; PULSE 71–90; RESP 16–18; TEMP 36.5–37.2; O2SAT 95–98
[2021-11-04] MEDS: Enoxaparin 40 MG/0.4 ML Syringe SC (01:08)
[2021-11-04] MEDS: Acetaminophen 500 MG Tablet 1000 MG PO ×4 (01:09→18:40)
[2021-11-04] MEDS: 0.9% Saline Lock 10 ML Syringe IV ×2 (02:21→08:54)
[2021-11-04] MEDS: Ketorolac 30 MG/ML Syringe IV ×2 (02:21→08:54)
[2021-11-04 06:59] LABS: Hematocrit 39.1 % (37-47); Hemoglobin 12.8 g/dL (12.0-15.0); Mean Corp Hgb Conc 32.7 g/dL (32-36); Mean Corpuscular Hgb 29.5 pg (27.0-32.0); Mean Corpuscular Volume 90.1 fL (81-99); Mean Platelet Vol. 11.9 fl (6.2-12.0); Platelet Count 163 K/mm3 (150-450); RBC Distribution Width CV 13.7 % (11.6-14.6); RBC Distribution Width SD 44.8 fl (35.1-43.9); Red Blood Count 4.34 M/mm3 (4.2-5.4); White Blood Count 10.9 K/mm3 (4.4-11.0)
--- NOTE | 2021-11-04 08:17 | PCM.DC.SUM ---
Providers Date of Admission: 11/03/21 Primary Care Physician: Dr. Kanchan Cunha MD Reason For Visit: REPEAT C SECTION Diagnosis Discharge Diagnosis (1) 39 weeks gestation of : Status: Acute Code(s): Z3A.39 - 39 weeks gestation of (2) Previous delivery affecting : Status: Acute Code(s): O34.219 - Maternal care for unspecified type scar from previous delivery (3) Delivery by section: Status: Acute (4) Encounter for sterilization: Status: Acute Code(s): Z30.2 - Encounter for sterilization Medications at Discharge Home Medications [id number] 1 tab PO DAILY 11/03/21 sennosides-docusate sodium [Stool Softener-Stimulant Laxat] 1 - 2 tab PO DAILY #0 tab 11/04/21 Hospital Course Operations section Summary of Care Provided Hospital Course: Patient was here for repeat section with bilateral tubal ligation. Physical Exam Narrative Patient seen at bedside. infant. Denies headache, sob, cp or dizziness. Passing flatus. Ambulating and voiding witout difficulty. Desires discharge home today. Dressing is dry and intact. Const alert and no apparent distress General Appearance: cooperative and comfortable Exam Limitations: no limitations HEENT normocephalic Eyes General Eye: normal appearance of both eyes Neck full ROM General: normal visual inspection Chest Chest: symmetrical chest wall rise Resp normal respiratory effort and normal air movement Effort and Inspection: symmetric chest movement Auscultation: clear to auscultation bilaterally Cardio regular rate and regular rhythm GI normal to inspection, nondistended, normoactive bowel sounds Back/Spine normal ROM Extremity full ROM and no calf tenderness General Extremity: normal exam except as noted Skin no rashes or lesions noted Neuro CN's II-XII intact bilaterally Psych mental status grossly normal Weight / BMI Weight Weight: 287 lb 11.252 oz Body Mass Index (BMI) 38.9 ABG / Lab / Microbiology Data Result Diagrams: 11/04/21 06:45 Laboratory: Laboratory Results - last 24 hr 11/03/21 10:00: WBC 8.7, RBC 4.33, Hgb 13.0, Hct 38.8, MCV 89.6, MCH 30.0, MCHC 33.5, RDW Std Deviation 43.3, RDW Coeff of Ophelia 13.2, Plt Count 187, MPV 12.3 H, Immature Gran % (Auto) 0.500, Neut % (Auto) 64.6, Lymph % (Auto) 25.4, [place] % (Auto) 8.3, Eos % (Auto) 1.0, Baso % (Auto) 0.2, Absolute Neuts (auto) 5.6, Absolute Lymphs (auto) 2.20, Nucleated RBC % 0 11/03/21 10:00: Blood Type O POSITIVE, Antibody Screen NEGATIVE 11/04/21 06:45: WBC 10.9, RBC 4.34, Hgb 12.8, Hct 39.1, MCV 90.1, MCH 29.5, MCHC 32.7, RDW Std Deviation 44.8 H, RDW Coeff of Ophelia 13.7, Plt Count 163, MPV 11.9 D/C Instructions Discharge Diet: No restrictions May resume sexual activity in: 6-8 weeks Weight Bearing Status: Weight bearing as tolerated Lifting Restrictions: 20 lbs Call your doctor if your incision/area has: Continuous Slow Oozing, Increased Pain/ Swelling, Increased Redness, Foul Smelling Discharge and Swelling at the incision site Call your doctor if you observe: Fever of 101 or Higher, Inability to urinate, Using more than 1 pad per hour, Shortness of breath, Chest pain, Calf discomfort and Uncontrolled pain Remove Dressing in: 5 days Cleanse incision/area with: Soap & Water and Keep Dressing Clean & Dry When: 1 week in office for incision check or sooner if needed 6 weeks Meaningful Use Info Meaningful Use Diagnoses (Choose all that apply): None applicable Discharge Plan Admission Admit Date/Time: 11/03/21 09:25 Attending Provider: Sandra Silver Primary Care Provider: Kanchan Cunha Discharge Orders/Prescriptions Prescriptions: New sennosides-docusate sodium [Stool Softener-Stimulant Laxat] 8.6-50 mg Tablet 1 - 2 tab PO DAILY Qty: 0 RF: 0 Continued zjnhlhvx-qdb-Wy-FA 1 mg Tablet 1 tab PO DAILY RF: 0 Referrals / Follow Up: Kanchan Cunha MD [Primary Care Provider] - Disposition Disposition (needs filled in before D/C Order can be placed): Home, Self Care
[2021-11-04] MEDS: Senna/Docusate Sodium 1 Tablet PO (13:04)
[2021-11-04] MEDS: Ibuprofen 600 MG Tablet PO ×2 (14:59→21:15)
[2021-11-05] MEDS: Enoxaparin 40 MG/0.4 ML Syringe SC (00:22)
[2021-11-05] MEDS: Acetaminophen 500 MG Tablet 1000 MG PO ×2 (00:22→06:17)
[2021-11-05 02:12] VITALS: BP 127/64; PULSE 83; RESP 16; TEMP 36.1
[2021-11-05] MEDS: Ibuprofen 600 MG Tablet PO ×2 (03:10→09:40)
--- NOTE | 2021-11-05 06:43 | PCM.DC.SUM ---
Providers Date of Admission: 11/03/21 Primary Care Physician: Dr. Kanchan Cunha MD Reason For Visit: REPEAT C SECTION Diagnosis Discharge Diagnosis (1) 39 weeks gestation of : Status: Acute Code(s): Z3A.39 - 39 weeks gestation of (2) Previous delivery affecting : Status: Acute Code(s): O34.219 - Maternal care for unspecified type scar from previous delivery (3) Delivery by section: Status: Acute (4) Encounter for sterilization: Status: Acute Code(s): Z30.2 - Encounter for sterilization Medications at Discharge Home Medications dkbtiiro-obr-Qi-FA 1 mg tablet 1 tab PO DAILY Check with primary doctor 11/03/21 sennosides 8.6 mg-docusate sodium 50 mg tablet (Stool Softener-Stimulant Laxative) 1 - 2 tab PO DAILY #0 tabs 11/04/21 Hospital Course Operations section Summary of Care Provided Hospital Course: Patient here for repeat section with bilateral tubal ligation. Hospital course was uneventful Physical Exam Narrative Patient seen at bedside. Sitting on couch . Pain is controlled with Tylenol and Motrin. Ambulating and voiding. Passing flatus. Lochia minimal. Denies headache, vision changes, CP, or SOB. Desires discharge home today. Const alert and no apparent distress General Appearance: cooperative and comfortable Exam Limitations: no limitations HEENT normocephalic Eyes General Eye: normal appearance of both eyes Neck full ROM General: normal visual inspection Chest Chest: symmetrical chest wall rise Resp normal respiratory effort and normal air movement Effort and Inspection: symmetric chest movement Auscultation: clear to auscultation bilaterally Cardio regular rate and regular rhythm GI normal to inspection, nondistended, normoactive bowel sounds Back/Spine normal ROM Extremity full ROM and no calf tenderness General Extremity: normal exam except as noted Skin no rashes or lesions noted Neuro CN's II-XII intact bilaterally Psych mental status grossly normal Weight / BMI Weight Weight: 287 lb 11.252 oz Body Mass Index (BMI) 38.9 ABG / Lab / Microbiology Data Result Diagrams: 11/04/21 06:45 Laboratory: Laboratory Results - last 24 hr 11/04/21 06:45: WBC 10.9, RBC 4.34, Hgb 12.8, Hct 39.1, MCV 90.1, MCH 29.5, MCHC 32.7, RDW Std Deviation 44.8 H, RDW Coeff of Ophelia 13.7, Plt Count 163, MPV 11.9 D/C Instructions Discharge Diet: No restrictions May resume sexual activity in: 6-8 weeks Weight Bearing Status: Weight bearing as tolerated Call your doctor if your incision/area has: Continuous Slow Oozing, Increased Pain/ Swelling, Increased Redness, Foul Smelling Discharge and Swelling at the incision site Call your doctor if you observe: Fever of 101 or Higher, Inability to urinate, Using more than 1 pad per hour, Shortness of breath, Chest pain, Calf discomfort and Uncontrolled pain Cleanse incision/area with: Soap & Water and Keep Dressing Clean & Dry When: 1 week in office for incision check or sooner if needed 6 weeks Meaningful Use Info Meaningful Use Diagnoses (Choose all that apply): None applicable Discharge Plan Admission Admit Date/Time: 11/03/21 09:25 Primary Reason for Your Visit: Repeat Section Attending Provider: Sandra Silver Primary Care Provider: Kanchan Cunha Discharge Orders/Prescriptions Prescriptions: New sennosides-docusate sodium [Stool Softener-Stimulant Laxat] 8.6-50 mg Tablet 1 - 2 tab PO DAILY Qty: 0 0RF Continued myemnzlz-dkm-Ul-FA 1 mg Tablet 1 tab PO DAILY Referrals / Follow Up: Kanchan Cunha MD [Primary Care Provider] - Disposition Disposition (needs filled in before D/C Order can be placed): Home, Self Care
[2021-11-05 09:03] VITALS: BP 132/90; PULSE 95; RESP 16; TEMP 36.7; O2SAT 96
[2021-11-05] MEDS: Senna/Docusate Sodium 1 Tablet PO (09:40)
[2021-11-06 10:27] LABS: Pathology Specimen OB SEE PATHOLOGY REPORT
== END 2021-11-05 10:00 | disposition home or self-care (01) | DRG 785 ==
PROVIDERS: Admitting Provider Obstetrics & Gynecology; PCP Family Medicine; Visit Provider Obstetrics & Gynecology
PROC: 0UT50ZZ Resection of Right Fallopian Tube, Open Approach (ICD-10-PCS; CPT 59514; principal; 2021-11-03 11:45)
DX: O34.219 Maternal care for unspecified type scar from previous cesarean delivery (principal); Z30.2 Encounter for sterilization; Z37.0 Single live birth; Z3A.39 39 weeks gestation of pregnancy; Z86.16 Personal history of COVID-19; Z90.721 Acquired absence of ovaries, unilateral
CPT/HCPCS: 59025; 59050; 85025; 85027; 86850; 86900; 86901; 88302; 99218; J7120; A4216; G0378; J2405

== ENCOUNTER → 2023-09-01 | Outpatient (CLI) | payer OTHER, SELFPAY | END | disposition home or self-care (01) | PROVIDERS: PCP Nurse Practitioner Family; Visit Provider Nurse Practitioner Family | DX: N39.0 Urinary tract infection, site not specified (principal) | CPT/HCPCS: 87086 ==

== ENCOUNTER → 2023-09-16 | Outpatient (CLI) | payer OTHER, SELFPAY ==
--- NOTE | 2023-09-16 16:49 | CT_ITS ---
STUDY: CT ABDOMEN AND PELVIS WITHOUT CONTRAST REASON FOR EXAM: Female, 33 years old. KIDNEY STONE RADIATION DOSAGE (If Supplied By Facility): CTDIvol = ( 20.99 ) mGy, DLP = ( 1122.49 ) mGycm TECHNIQUE: Transaxial images were obtained from the dome of the diaphragm to the symphysis pubis without oral contrast, and without intravenous contrast. Sagittal and coronal images were reconstructed. Individualized dose optimization techniques were used for this CT. COMPARISON: None. FINDINGS: The visualized lung bases are unremarkable. The visualized portions of the heart are within normal limits. Normal liver. Normal gallbladder and extrahepatic biliary system. Normal spleen. Normal pancreas. Normal bilateral adrenal glands. Normal right kidney. Normal left kidney. Normal visualized stomach. Normal small intestine. Normal colon. There are surgical clips in the region of the appendix consistent with a prior appendectomy. Normal abdominal aorta. Normal inferior vena cava. Normal retroperitoneum. Normal urinary bladder. Some calcifications within the pelvis felt to represent phleboliths. Normal abdominal wall. Mild levoscoliosis lumbar spine. CT/Abdomen/Pelvis without Cont IMPRESSION: Normal unenhanced CT of the abdomen and pelvis. No definite renal or ureteral stone. Phleboliths of pelvis. Intravenous pyelogram or a renal protocol CT with excretory phase imaging may exclude distal ureteral stone. However, there is no ureteral dilatation or hydronephrosis. Electronically Signed: Michoacano Villalpando MD at 22:12 EDT ,
== END | disposition home or self-care (01) ==
LOC: CT 16:48
PROVIDERS: PCP Family Medicine; Referring Provider Nurse Practitioner Family; Visit Provider Nurse Practitioner Family
DX: R10.9 Unspecified abdominal pain (principal); Z87.442 Personal history of urinary calculi
CPT/HCPCS: 74176

== ENCOUNTER 2023-09-26 10:41 | Emergency (ER) | payer OTHER, SELFPAY ==
[2023-09-26 10:42] VITALS: BP 160/100; PULSE 89; RESP 16; TEMP 36.8; O2SAT 99; BMI 36.9
[2023-09-26 10:44] VITALS: BP 160/100; PULSE 89; RESP 16; TEMP 36.8; O2SAT 98
--- NOTE | 2023-09-26 11:05 | CT_ITS ---
INDICATION: right flank pain EXAMINATION: CT ABDOMEN AND PELVIS WITHOUT CONTRAST - CT Abdomen And Pelvis W/O Contrast Injection TECHNIQUE: Helically acquired images were obtained of the abdomen and pelvis without oral or IV contrast. A radiation dose optimization technique was used for this scan. IV Contrast dosage and agent: None. Oral contrast: None. RADIATION DOSAGE (If Supplied By Facility): CTDIvol = ( 21.39 ) mGy, DLP = ( 1197.3 ) mGycm COMPARISON: September 16, 2023 FINDINGS: LOWER CHEST: Lung bases are clear. No cardiomegaly or pericardial effusion. The lack of intravenous contrast limits evaluation of solid visceral organs. LIVER: Homogeneous. No focal mass. GALLBLADDER AND BILIARY TREE: No calcified gallstones. No gallbladder distension or wall edema. No intra- or extrahepatic biliary ductal dilation. PANCREAS: No focal cystic or solid mass. SPLEEN: Normal size without focal cystic or solid mass. ADRENAL GLANDS: No nodules. KIDNEYS AND URETERS: There is right-sided perinephric stranding and fluid associated with right sided hydroureteronephrosis secondary to a 4.6 x 7.0 mm calculus within the distal ureter. PERITONEUM: No ascites or free air. No other fluid collection. BOWEL: There are diverticula arising from the colon. There are surgical clips within the right lower quadrant suggestive of prior appendectomy. LYMPH NODES: No enlarged mesenteric or retroperitoneal lymph nodes. VESSELS: Aorta is non-dilated. URINARY BLADDER: Unremarkable. REPRODUCTIVE ORGANS: No pelvic masses. ABDOMINAL WALL: No discrete abdominal or pelvic wall hernia. BONES: No lytic or blastic abnormality. CT/Abdomen/Pelvis without Cont IMPRESSION: Right-sided hydroureteronephrosis secondary to a 4.6 x 7.0 mm calculus within the distal ureter. Colonic diverticulosis. Electronically Signed: Francisca Redding MD at 12:40 EDT ,
--- NOTE | 2023-09-26 11:06 | EDS_ITS ---
HPI History of Present Illness Chief Complaint: Flank Pain Informant: patient Onset/Context/Timing Onset: Today Narrative Narrative: Patient presents with right flank pain and urinary frequency that started around 2 AM this morning. She does have a history of kidney stones. No recent dysuria. She is never required surgery for her kidney stones in the past. [facility] Medical History (Updated 09/26/23 @ 13:[address] Sharita Pearson MD) 39 weeks gestation of COVID-19 Encounter for sterilization History of kidney stones Home Medications eynqyrcx-rui-Lq-FA 1 mg tablet 1 tab PO DAILY Check with primary doctor 11/03/21 [History Last Taken 11/03/21] sennosides 8.6 mg-docusate sodium 50 mg tablet (Stool Softener-Stimulant Laxative) 1 - 2 tab PO DAILY #0 tabs 11/04/21 [Rx Last Taken Unknown] hydrocodone-acetaminophen 5-325mg 5mg-325mg 1 tab PO Q6H PRN PRN Pain 3 days #10 TABLETS 09/26/23 [Rx Last Taken Unknown] ibuprofen 600 mg tablet 600 mg PO Q6H PRN PRN pain #20 TABLETS 09/26/23 [Rx Last Taken Unknown] ondansetron 4 mg disintegrating tablet 4 mg PO Q8H PRN PRN Nausea #10 tabs 09/26/23 [Rx Last Taken Unknown] Allergy/AdvReac Type Severity Reaction Status Date / Time No Known Allergies Allergy Verified 09/26/23 10:44 Surgical History Delivery by section H/O oophorectomy Previous delivery affecting Social History Smoking Status: Never smoker ROS ROS ED Constitutional Constitutional ED: Denies chills or fever(s) Eyes Eyes: Denies discharge from eye(s) ENT ENT ED: Denies discharge from eye(s), rhinorrhea or sore throat Cardiovascular Cardiovascular: Denies chest pain or palpitations Respiratory/Chest Respiratory/Chest: Denies cough or dyspnea Gastrointestinal Gastrointestinal: Reports abdominal pain and nausea; Denies diarrhea or vomiting Genitourinary Genitourinary ED: Reports urinary frequency Musculoskeletal Musculoskeletal: Reports back pain; Denies extremity pain Integumentary Denies Abrasions or rash Neurologic Neurologic: Denies headache(s) or weakness Allergic/Immunologic Allergic/Immunologic ED: Denies lip swelling or urticaria EXAM Physical Exam Const Vital Signs: 09/26/23 10:42 09/26/23 10:44 09/26/23 12:37 Temperature 98.2 F 98.2 F Temperature Source Temporal Temporal Pulse Rate 89 89 73 Respiratory Rate 16 16 18 Blood Pressure 160/100 H 160/100 H 135/72 H Blood Pressure Mean 120 120 93 Pulse Ox 99 98 98 Oxygen Delivery Method Nasal Cannula Room Air Room Air Positive well nourished and well developed General Appearance ED: well developed HEENT Reports moist mucous membranes Eyes EOMs intact bilaterally Chest Wall inspection of chest normal and palpation of chest normal Resp normal respiratory effort and clear to auscultation bilaterally Cardio regular rate and regular rhythm GI non-tender Palpation: soft Back/Spine General Back: CVA tenderness right Neuro oriented x3 and no sensory deficits noted Motor Exam: strength 5/5 throughout Psych mental status grossly normal Skin no rashes or lesions noted MDM MDM MDM Narrative Medical decision making narrative: IV line established. Patient given Toradol and Zofran. Labwork obtained to evaluate for leukocytosis, anemia, and electrolyte derangement. Urinalysis obtained to evaluate for infection/hematuria. CT flank obtained to evaluate for potential pyelonephritis or renal stone. History & Record Review Discussion w/independent historian: Patient Lab Data Attestation: I reviewed the patient's lab results. Labs: Laboratory Results - last 24 hr 09/26/23 11:15 WBC 8.8 RBC 4.76 Hgb 13.6 Hct 40.9 MCV 85.9 MCH 28.6 MCHC 33.3 RDW Std Deviation 39.7 RDW Coeff of Ophelia 12.5 Plt Count 239 MPV 10.7 Immature Gran % (Auto) 0.200 Neut % (Auto) 69.0 Lymph % (Auto) 20.9 [place] % (Auto) 8.2 Eos % (Auto) 1.4 Baso % (Auto) 0.3 Absolute Neuts (auto) 6.0 Absolute Lymphs (auto) 1.83 Nucleated RBC % 0 Sodium 138 Potassium 4.0 Chloride 106 Carbon Dioxide 24.0 Anion Gap 8 BUN 13 Creatinine 0.79 Estim Creat Clear Calc 155.01 Est GFR (MDRD) Af Amer 109 Est GFR (MDRD) Non-Af 90 BUN/Creatinine Ratio 16.5 Glucose 108 H Calcium 8.7 Urine Color Yellow Urine Clarity Clear Urine pH 6.5 Ur Specific [place] 1.020 Urine Protein 30 H Urine Glucose (UA) Normal Urine Ketones 50 H Urine Occult Blood 50 H Urine Nitrite Negative Urine Bilirubin Negative Urine Urobilinogen Normal Ur Leukocyte Esterase 25 H Urine RBC 5-10 SEEN Urine WBC 0-5 SEEN Ur Squamous Epith Cells 0-5 SEEN Urine Bacteria 0 SEEN Urine Mucus 0 SEEN Urine Test Negative Radiography Diagnostic Testing: Clinical Impression(s) from Imaging Studies Abdomen/Pelvis CT 09/26/23 11:05 IMPRESSION: Right-sided hydroureteronephrosis secondary to a 4.6 x 7.0 mm calculus within the distal ureter. Colonic diverticulosis. Electronically Signed: Francisca Redding MD at 12:40 EDT , Treatment and Re-Evaluation :: CBC was a white count of 8.8 with a hemoglobin of 13.6. Differential unremarkable. Chemistry studies normal with a BUN of 13 and a creatinine 0.79. Urinalysis reveals 5-10 red cells with no evidence of infection. test negative. CT flank reveals right-sided hydro ureteral nephrosis secondary to a 4.6 x 7 mm calculus in the distal ureter. On repeat evaluation patient states her pain is improved. She will be given martin lgesics for home and referred to urology for follow-up. Return instructions were provided. She is comfortable with the plan. Discharge Plan Triage Chief Complaint: Flank Pain ED Provider: Sharita Pearson Dx/Rx/DC Orders Clinical Impression: Ureterolithiasis Instructions: ED Kidney Stone with Pain Prescriptions: New ibuprofen 600 mg tablet 600 mg PO Q6H PRN PRN (Reason: pain) Qty: 20 0RF hydrocodone-acetaminophen 5-325 mg tablet 1 tab PO Q6H PRN PRN (Reason: Pain) 3 Days Qty: 10 0RF ondansetron 4 mg tablet,disintegrating 4 mg PO Q8H PRN PRN (Reason: Nausea) Qty: 10 0RF No Action gywzutza-rbr-Jo-FA 1 mg Tablet 1 tab PO DAILY sennosides-docusate sodium [Stool Softener-Stimulant Laxat] 8.6-50 mg Tablet 1 - 2 tab PO DAILY Qty: 0 0RF Primary Care Provider: Rayna Luna Referrals: Rayna Luna MD [Primary Care Provider] - Brenda Parish MD [Med Staff - Active Staff] - 3-5 Days if not improving Disposition Disposition: Home, Self Care
[2023-09-26] MEDS: Ondansetron 4 MG/2 ML Vial IV (11:27)
[2023-09-26] MEDS: Ketorolac 15 MG/ML Vial IV (11:27)
[2023-09-26 11:28] LABS: Bacteria 0 SEEN /hpf (None Seen); Mucous, Urine 0 SEEN /hpf (<or=2+)
[2023-09-26] MEDS: 0.9% Normal Saline (1000mL) 1,000 ML 150 ML IV (11:28)
[2023-09-26 11:30] LABS: Absolute Lymphocyte Count 1.83 X10^3/uL (0.83-4.51); Basophil# 0.03 X10^3/uL; Basophil% 0.3 % (0-1); Eosinophil# 0.12 X10^3/uL; Eosinophils% 1.4 % (0-5); Hematocrit 40.9 % (37-47); Hemoglobin 13.6 g/dL (12.0-15.0); Lymphocyte # 1.83 X10^3/ul (0.83-4.51); Lymphocyte % 20.9 % (19-41); Mean Corp Hgb Conc 33.3 g/dL (32-36); Mean Corpuscular Hgb 28.6 pg (27.0-32.0); Mean Corpuscular Volume 85.9 fL (81-99); Mean Platelet Vol. 10.7 fl (6.2-12.0); Monocyte# 0.72 X10^3/uL; Monocyte% 8.2 % (0-10); NRBC Flagged by Analyzer 0 % (0-5); Neutrophil # 6.03 X10^3/uL (2.7-7.7); Platelet Count 239 K/mm3 (150-450); RBC Distribution Width CV 12.5 % (11.6-14.6); RBC Distribution Width SD 39.7 fl (35.1-43.9); Red Blood Count 4.76 M/mm3 (4.2-5.4); White Blood Count 8.8 K/mm3 (4.4-11.0)
[2023-09-26 11:39] LABS: Color, Urine Yellow (Yellow); Glucose, Dipstick Normal (Normal); Ketone-Dipstick 50 mg/dl (Negative); Leukocyte Esterase-Dipstick 25 /ul (Negative); Nitrite-Dipstick Negative (Negative); Occult Blood-Urine 50 /ul (Negative); Protein-Dipstick 30 mg/dl (Negative); Urine Bilirubin Dipstick Negative (Negative); Urine Clarity Clear (Clear); Urine Urobilinogen Normal (Normal); Urine pH 6.5 (5.0 - 8.0)
[2023-09-26 11:45] LABS: Anion Gap 8 (5-15); BUN 13 mg/dL (7-18); BUN/Creat Ratio 16.5 RATIO (10-20); Calcium,Total 8.7 mg/dL (8.5-10.1); Chloride 106 mmol/L (98-107); Creatinine, Serum 0.79 mg/dL (0.55-1.02); EST Glomerular Filtration Rate 90 mL/min (>60); Est Glom Filt Rate - Afr Amer 109 mL/min (>60); Estimated Creatinine Clearance 155.01 ml/min; Glucose 108 mg/dL (74-106); Sodium Level 138 mmol/L (136-145)
[2023-09-26 12:00] LABS: Red Blood Cells-Urine 5-10 SEEN /hpf (0-5); Squamous Epithelial Cells - UA 0-5 SEEN /hpf (5-10); White Blood Cells 0-5 SEEN /hpf (0-5)
[2023-09-26 12:02] LABS: Internal QC Validated? YES +Cl - CLEAR BKGD; Pregnancy, Urine Negative Negative
[2023-09-26 12:03] LABS: Record Kit Lot#,Urine Preg 718089
[2023-09-26 12:37] VITALS: BP 135/72; PULSE 73; RESP 18; O2SAT 98
[2023-09-26 13:55] VITALS: BP 123/75; PULSE 75; RESP 18; TEMP 36.2; O2SAT 100
== END 2023-09-26 13:56 | disposition home or self-care (01) ==
PROVIDERS: Emergency Provider Emergency Medicine; PCP Family Medicine; Visit Provider Emergency Medicine
DX: N13.2 Hydronephrosis with renal and ureteral calculous obstruction (principal)
CPT/HCPCS: 74176; 80048; 81001; 81025; 85025; 96361; 96374; 96375; 99283; J7030; A4216; J2405

== ENCOUNTER 2024-03-13 17:29 | Emergency (ER) | payer OTHER, SELFPAY ==
[2024-03-13 17:30] VITALS: BP 155/97; PULSE 97; RESP 18; TEMP 36.8; O2SAT 100; BMI 36.2
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
--- NOTE | 2024-03-13 18:39 | EKG12_ITS ---
Test Reason : UPPER EXT Blood Pressure : / mmHG Vent. Rate : 099 BPM Atrial Rate : 099 BPM P-R Int : 150 ms QRS Dur : 082 ms QT Int : 352 ms P-R-T Axes : 033 048 018 degrees QTc Int : 451 ms Normal sinus rhythm Abnormal ECG Confirmed by RAMON MILLER MD ([id number]), art editor MARZENA GRAF ([id number]) on 03/15/2024 10:01:15 AM Referred By: Confirmed By:RAMON MILLER MD
[2024-03-13] MEDS: Ondansetron 4 MG/2 ML Vial IV (18:59)
[2024-03-13] MEDS: Morphine 4 MG/ML Syringe IV ×2 (18:59→21:57)
[2024-03-13 19:11] LABS: Absolute Neutrophil Count 10.9 X10^3/uL (2.0-7.7); Basophil# 0.03 X10^3/uL; Basophil% 0.2 % (0-1); Eosinophil# 0.04 X10^3/uL; Eosinophils% 0.3 % (0-5); Hematocrit 40.1 % (37-47); Hemoglobin 13.3 g/dL (12.0-15.0); Lymphocyte % 9.6 % (19-41); Mean Corp Hgb Conc 33.2 g/dL (32-36); Mean Corpuscular Hgb 28.9 pg (27.0-32.0); Mean Corpuscular Volume 87.2 fL (81-99); Mean Platelet Vol. 10.9 fl (6.2-12.0); Monocyte# 1.14 X10^3/uL; Monocyte% 8.4 % (0-10); NRBC Flagged by Analyzer 0 % (0-5); Neutrophil # 10.89 X10^3/uL (2.7-7.7); Neutrophil % 80.8 % (47-70); Platelet Count 238 K/mm3 (150-450); RBC Distribution Width CV 13.2 % (11.6-14.6); White Blood Count 13.5 K/mm3 (4.4-11.0)
[2024-03-13 19:45] VITALS: BP 144/100; BP 146/94; PULSE 86; PULSE 90; RESP 16; RESP 19; O2SAT 100; O2SAT 98
[2024-03-13 19:49] LABS: Anion Gap 7 (5-15); BUN 9 mg/dL (7-18); BUN/Creat Ratio 11.3 RATIO (10-20); Calcium,Total 9.4 mg/dL (8.5-10.1); Chloride 105 mmol/L (98-107); EST Glomerular Filtration Rate 88 mL/min (>60); Est Glom Filt Rate - Afr Amer 107 mL/min (>60); Estimated Creatinine Clearance 151.48 ml/min; Glucose 134 mg/dL (74-106); Potassium 3.4 mmol/L (3.5-5.1); Sodium Level 138 mmol/L (136-145)
[2024-03-13 19:56] LABS: hCG Titer Quant., Serum < 1 mIU/mL (1-3)
[2024-03-13 21:42] VITALS: PULSE 94; RESP 16; O2SAT 98
[2024-03-13 21:53] VITALS: BP 146/94; PULSE 94; RESP 16; TEMP 36.8; O2SAT 98
== END 2024-03-13 22:07 | disposition home or self-care (01) ==
PROVIDERS: Emergency Provider Emergency Medicine; PCP Family Medicine; Visit Provider Emergency Medicine
DX: S42.101A Fracture of unspecified part of scapula, right shoulder, initial encounter for closed fracture (principal); S20.223A Contusion of bilateral back wall of thorax, initial encounter; S00.03XA Contusion of scalp, initial encounter; M54.9 Dorsalgia, unspecified; R10.11 Right upper quadrant pain; Z86.16 Personal history of COVID-19; V86.09XA Driver of other special all-terrain or other off-road motor vehicle injured in traffic accident, initial encounter
CPT/HCPCS: 71250; 73030; 74176; 80048; 84702; 85025; 93005; 96374; 96375; 96376; 99283; A4216; J2405

== ENCOUNTER → 2025-02-08 | Outpatient (CLI) | payer OTHER, SELFPAY ==
--- OUTSIDE RECORDS SUMMARY | 2025-02-08 17:29 | XMS RPT_ITS | CCD ---
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 Delivery by section Previous delivery affecting H/O oophorectomy Social History Smoking Status: Never smoker ROS ROS ED Constitutional Constitutional ED: Denies chills, fever(s) or subjective Eyes Eyes: Denies blurry vision or change in vision ENT ENT ED: Reports other Details: Denies epistaxis or teeth trauma ; Denies rhinorrhea or sore throat Cardiovascular Cardiovascular: Reports chest pain; Denies palpitations Respiratory/Chest Respiratory/Chest: Denies cough, dyspnea or dyspnea on exertion Gastrointestinal Gastrointestinal: Denies abdominal pain, nausea or vomiting Musculoskeletal Musculoskeletal: Reports back pain Integumentary Denies rash Neurologic Neurologic: Denies headache(s), paresthesias or weakness Hematologic/Lymphatic Hematologic/Lymphatic: Denies easy bleeding or easy bruising EXAM Physical Exam Const Vital Signs: 03/13/24 17:30 Temperature 98.2 F Temperature Source Oral Pulse Rate 97 Respiratory Rate 18 Blood Pressure 155/97 H Blood Pressure Mean 116 Pulse Ox 100 Oxygen Delivery Method Room Air Positive well nourished and well developed Constitutional Narrative: Patient appears uncomfortable. She is holding her right upper extremity internally rotated and against her torso. General Appearance ED: well developed; Negative for cyanotic, diaphoretic or NAD HEENT Reports moist mucous membranes HEENT Narrative: Ears normal. No clinical findings of basilar skull fracture. normocephalic and atraumatic Eyes PERRL and EOMs intact bilaterally Eyes Narrative: No subconjunctival hemorrhage. Neck full ROM and supple General: Negative for tenderness Chest Wall inspection of chest normal and palpation of chest normal Chest Narrative: There is pain palpation right costal margin and lower right ribs midclavicular line to the posterior clavicular line. Resp normal respiratory effort Resp Narrative: Breath sounds are diminished. Breath sounds are noted bilaterally. Patient splints when she takes a deep breath. Cardio regular rate, regular rhythm, S1 normal heart sound and no murmurs GI non-distended and no masses; Negative for non-tender GI Narrative: There is tenderness right costal margin. Auscultation: hypoactive bowel sounds Palpation: soft Back/Spine no CVA tenderness Extremity normal to inspection; Negative for full (more content not included)... Normal [facility] ,Serum,hCG Quali.on 03-13-2024 HCG, SERUM QUAL Normal [facility] Comment on above: Result Comment: HCG QUANT ORDERED Performed By: #### L 700.6800, L100.0100, L500.2500 ####[facility] [address] [place], [address] INTERNAL QC OK? Normal [facility] Comment on above: Result Comment: HCG QUANT ORDERED Performed By: #### L 700.6800, L100.0100, L500.2500 ####[facility] [address] [place] [address] RECORD KIT LOT# [facility] Comment on above: Result Comment: HCG QUANT ORDERED Performed By: #### L 700.6800, L100.0100, L500.2500 ####[facility] [address] [place], [address] Shoulder min 2 Viewson 03-13 Shoulder min 2 Views [facility] Imaging Services [address] [place] [address] Shoulder min 2 Views MR#: [id number] Acct: [id number] Name: VALENTINO FRIAS Rep #: [id number] : 1990 F 33 From: Zev Pimentel MD PCP: Dr. Rayna Luna MD Status: PRE ER Study: Shoulder min 2 Views Date of Exam: 03/13/24 Exam# [id number] Ordering Dr: Omega Reeder MD [id number] EXAM: XR RIGHT SHOULDER COMPLETE, 2 OR MORE VIEWS CLINICAL INDICATION: TRAUMAN TECHNIQUE: Two or more views of the right shoulder. COMPARISON: No relevant prior studies available. FINDINGS: BONES/JOINTS: There is a fracture of the right scapula. This appears to extend to the glenoid fossa. Preservation of the joint space. No sclerotic or destructive changes observed. SOFT TISSUES: Unremarkable. No soft tissue swelling or gas. No radiopaque foreign body. RAD/Shoulder min 2 Views IMPRESSION: Right scapular fracture. Electronically Signed: Zev Pimentel MD at 18:22 EDT , CC: Dr. Rayna Luna MD; Dr. Omega Reeder MD Fleece Tier: Signed Normal [facility] hCG Titer Quant., Serumon HCG QUANT. < 1 Normal 1-3 [facility] Comment on above: Result Comment: hCG levels with Gestational Age Gestational Age hCG mIU/mL (IU/L) 0.2 - 1 week 5 - 50 1-2 weeks 50 - 500 2-3 weeks 100 - 5000 3-4 weeks 500 - 07649 4-5 weeks 1000 - 31222 5-6 weeks 97503 - 100,000 6-8 weeks 76904 - 200,000 2-3 months 88772 - 100,000 Performed By: #### L 700.8000 ####[facility] [address] [place], [address] [facility] 02-21-2024 [facility] Telephone (RUST) -------- VALENTINO FRIAS ([id number]) 1990 F Date Time Provider Department 02/21/24 TAYLER CRENSHAW RUST During your visit today, we recorded the following information about you: Tayler Crenshaw APRN.CNP 02/21/2024 9:54 AM Signed Please notify chest xray negative. May continue medication and f/u as discussed during visit. Meredith Hanna MA 02/21/2024 9:59 AM Signed Patient notified of results, verbalizes understanding of instructions. Meredith Hanna MA Allergies As of Date: 02/21/2024 (No Known Allergies) Date Reviewed: 02/20/2024 Reviewed by: Tiara Hayes MA - Fully Assessed Reason for Visit: Results [95] Prescriptions as of 02/21/2024 - cetirizine (ZYRTEC) 10 mg tablet Take 10 mg by mouth once daily. - vitamin B complex (B COMPLEX 1 ORAL) Take by mouth. - MAGNESIUM ORAL Take by mouth. - doxycycline monohydrate 100 mg tablet Take 1 tablet by mouth two times a day for 7 days. - albuterol HFA (PROVENTIL HFA, VENTOLIN HFA) 90 mcg/actuation inhaler Inhale 2 Puffs as instructed every 4 hours as needed for wheezing/shortness of breath. - pyridoxine, vitamin B6, (VITAMIN B-6) 25 mg tablet Take 25 mg by mouth four times daily. - multivitamin (CLASSIC ) 28 mg iron- 800 mcg tab(s) Take 1 tablet by mouth once daily. - loratadine (CLARITIN ORAL) Take by mouth as needed. Problem List As Of Date 02/21/2024 Noted Resolved Wound seroma [QYK3507] 12/14/2014 01/21/2018 Obesity in [O99.210] 01/13/2018 Nausea and vomiting in [O21.9] 01/13/2018 07/20/2018 Family history of congenital heart defect [Z82.*01/13/2018 Patient requested diagnostic testing [Z01.89] 01/13/2018 Counseling for control regarding intraute*06/03/2018 03/28/2021 Uterine size-date discrepancy, third trimester *07/20/2018 10/19/2018 with history of section, ant*03/17/2021 H/O macrosomia in in prior , cu*03/17/2021 History of hypertension [Z86.79, Z87*03/17/2021 Lab test positive for detection of COVID-19 vir*04/24/2021 Genetic screening [Z13.79] 06/06/2021 Encounter Status:Closed by MEREDITH HANNA on 02/21/24 Normal [facility] XR CHEST 2V FRONTAL/LATon XR CHEST 2V FRONTAL/LAT * * *Final Repor t* * * DATE OF EXAM: Feb 21 2024 8:24AM WOX 5291 - XR CHEST 2V FRONTAL/LAT / PROCEDURE REASON: Lower respiratory tract infection * * * * Physician Interpretation * * * * EXAMINATION: CHEST RADIOGRAPH (2 VIEW FRONTAL and LATERAL) CLINICAL HISTORY: Lower respiratory tract infection MQ: XC2_6 EXAM DATE/TIME: 02/21/2024 8:24 AM COMPARISON: Chest x-ray of 07/15/2022 RESULT: Lines, tubes, and devices: None. Lungs and pleura: No consolidation. No lung mass. No pleural effusion. No pneumothorax. Cardiomediastinal silhouette: Normal cardiomediastinal silhouette. Bones and soft tissues: Unremarkable. IMPRESSION: No acute radiographic abnormality. Fleece Tier: [facility] Transcribe Date/Time: Feb 21 2024 8:31A Dictated by : DEVORAH LORENZ MD This examination was interpreted and the report reviewed and electronically signed by: DEVORAH LORENZ MD on Feb 21 2024 8:32AM EST [id number] Normal [facility] XR Chest PA and Lateralon IMPRESSION: No acute radiographic abnormality. Fleece Tier: [facility] Transcribe Date/Time: Feb 21 2024 8:31A Dictated by : DEVORAH LORENZ MD This examination was interpreted and the report reviewed and electronically signed by: DEVORAH LORENZ MD on Feb 21 2024 8:32AM EST DIVISION OF RADIOLOGY * * *Final Report* * * DATE OF EXAM: Feb 21 2024 8:24AM WOX 5291 - XR CHEST 2V FRONTAL/LAT / PROCEDURE REASON: Lower respiratory tract infection * * * * Physician Interpretation * * * * EXAMINATION: CHEST RADIOGRAPH (2 VIEW FRONTAL & LATERAL) CLINICAL HISTORY: Lower respiratory tract infection MQ: XC2_6 EXAM DATE/TIME: 02/21/2024 8:24 AM COMPARISON: Chest x-ray of 07/15/2022 RESULT: Lines, tubes, and devices: None. Lungs and pleura: No consolidation. No lung mass. No pleural effusion. No pneumothorax. Cardiomediastinal silhouette: Normal cardiomediastinal silhouette. Bones and soft tissues: Unremarkable. DIVISION OF RADIOLOGY Provider, Ana Rainey - 02/21/2024 * * *Final Report* * * DATE OF EXAM: Feb 21 2024 8:24AM WOX 5291 - XR CHEST 2V FRONTAL/LAT / PROCEDURE REASON: Lower respiratory tract infection * * * * Physician Interpretation * * * * EXAMINATION: CHEST RADIOGRAPH (2 VIEW FRONTAL & LATERAL) CLINICAL HISTORY: Lower respiratory tract infection MQ: XC2_6 EXAM DATE/TIME: 02/21/2024 8:24 AM COMPARISON: Chest x-ray of 07/15/2022 RESULT: Lines, tubes, and devices: None. Lungs and pleura: No consolidation. No lung mass. No pleural effusion. No pneumothorax. Cardiomediastinal silhouette: Normal cardiomediastinal silhouette. Bones and soft tissues: Unremarkable. IMPRESSION IMPRESSION: No acute radiographic abnormality. Fleece Tier: [facility] Transcribe Date/Time: Feb 21 2024 8:31A Dictated by : DEVORAH LORENZ MD This examination was interpreted and the report reviewed and electronically signed by: DEVORAH LORENZ MD on Feb 21 2024 8:32AM EST [facility] Radiology Study observation (narrative) Ray Lozano XR Chest PA and LateralOrder ed By: [facility] Provider on 02-21-2024 [facility] CNOVon 02-20-2024 CNOV Office Visit (UCWSTR ) -------- VALENTINO FRIAS ([id number]) 1990 F Date Time Provider Department 02/20/24 1:45 PM CLAUDIA TONY RUST During your visit today, we recorded the following information about you: Temperature Pulse Respiration Blood pressure 100.1 degrees 101/minute 18/minute 128/91 Weight 123.8 kg Claudia Tony APRN.PORTAL ADMINISTRATOR 02/20/2024 2:18 PM Signed Subjective Cough Associated symptoms include chills, headaches, myalgias, shortness of breath and wheezing. Pertinent negatives include no chest pain. Valentino Frias is a 33 year old female who presents with 4 days of fever, chills, body aches, headache, and cough. She is having some wheezing and shortness of breath. Her son was recently diagnosed with pneumonia. She has been taking ibuprofen for fever. Review of Systems Constitutional: Positive for chills, fever and malaise/fatigue. HENT: Negative. Respiratory: Positive for cough, shortness of breath and wheezing. Negative for sputum production. Cardiovascular: Negative for chest pain. Gastrointestinal: Negative for diarrhea, nausea and vomiting. Musculoskeletal: Positive for myalgias. Neurological: Positive for headaches. BP 128/91 Pulse 101 Temp 37.8 ?C (100.1 ?F) Resp 18 Wt 123.8 kg (272 lb 14.9 oz) LMP 02/03/2021 (Exact Date) SpO2 99% BMI 37.54 kg/m? PAST MEDICAL HISTORY Diagnosis Date Complication of anesthesia Vomiting that started 12 hours after surgery Kidney stone 2019 Ovarian torsion 2014 LEFT OVARY hypertension PAST SURGICAL HISTORY Procedure Laterality Date APPENDECTOMY DELIVERY ONLY 09/09/2018 C/S low transverse DELIVERY ONLY 11/03/2021 LTCS F OVARIAN CYSTECTOMY 11/22/2014 benign OOPHORECTOMY PARTIAL/TOTAL UNI/BI 11/22/2014 Ovarian torsion - LSO performed SALPINGECTOMY Bilateral 11/03/2021 ALLERGIES Patient has no known allergies. MEDICATIONS cetirizine (ZYRTEC) 10 mg tablet Take 10 mg by mouth once daily. vitamin B complex (B COMPLEX 1 ORAL) Take by mouth. MAGNESIUM ORAL Take by mouth. pyridoxine, vitamin B6, (VITAMIN B-6) 25 mg tablet Take 25 mg by mouth four times daily. (Patient not taking: Reported on 06/23/2021) multivitamin (CLASSIC ) 28 mg iron- 800 mcg tab(s) Take 1 tablet by mouth once daily. (Patient not taking: Reported on 07/15/2022) loratadine (CLARITIN ORAL) Take by mouth as needed. (Patient not taking: Reported on 02/20/2024) FAMILY HISTORY Problem Relation Age of Onset Thyroid Mother Depression Mother Hypertension Father No Known Problems Sister Arthritis Maternal Grandmother Breast Cancer Maternal Grandmother Alcohol/Drug Maternal Grandfather ETOH Macular Degen Paternal Grandmother Heart Paternal Grandfather [place] No Known Problems Son Social History Tobacco Use Smoking status: Never Smokeless tobacco: Never Vaping Use Vaping status: Never Used Substance Use Topics Alcohol use: Not Currently Drug use: No Objective Physical Exam Vitals and nursing note reviewed. Constitutional: Appearance: Normal appearance. HENT: Right Ear: Tympanic membrane, ear canal and external ear normal. Left Ear: Tympanic membrane, ear canal and external ear normal. Nose: Nose normal. Mouth/Throat: Pharynx: Uvula midline. No oropharyngeal exudate or posterior oropharyngeal erythema. Cardiovascular: Rate and Rhythm: Normal rate and regular rhythm. Heart sounds: Normal heart sounds. Pulmonary: Effort: Pulmonary effort is normal. No respiratory distress. Breath sounds: Examination of the left-upper field reveals rales. Examination of the left-lower field reveals rales. Rales present. No wheezing. Musculoskeletal: Cervical back: Neck supple. Lymphadenopathy: Cervical: No cervical adenopathy. Skin: General: Skin is warm and dry. Findings: No erythema or rash. Neurological: Mental Status: She is alert. ASSESSMENT/PLAN: 1. Lower respiratory tract infection - ICD9: 519.8, ICD10: J22 (primary diagnosis) - suspect left lung pneumonia. - She will return tomorrow for chest xray. - DOXYCYCLINE MONOHYDRATE 100 MG TABLET - offered COVID/flu testing-patient declined. 2. Wheezing - ICD9: 786.07, ICD10: R06.2 - ALBUTEROL SULFATE HFA 90 MCG/ACTUATION AEROSOL INHALER - Follow-up with your PCP in 3-5 days if symptoms have not improved or sooner if symptoms worsen - Discussed red flags and need for immediate medical evaluation if any occur. - Discussed supportive care treatment with fluids, rest and analgesia. - Discussed expected course of illness Claudia Tony APRN.Claudia Cannon APRN.JOSE ALBERTO 02/20/2024 2:18 PM Addendum ASSESSMENT/PLAN: 1. Lower respiratory tract infection - ICD9: 519.8, ICD10: J22 (primary diagnosis) - suspect left lung pneumonia. - She will return tomorrow for chest xray. - DOXY (more content not included)... Normal [facility] Abdomen/Pelvis without Conto n 09-26-2023 Abdomen/Pelvis without Cont [facility] Imaging Services [address] [place] [address] Abdomen/Pelvis without Cont MR#: [id number] Acct: [id number] Name: VALENTINO FRIAS Rep #: [id number] : 1990 F 33 From: Francisca Redding MD PCP: Dr. Rayna Luna MD Status: REG ER Study: Abdomen/Pelvis without Cont Date of Exam: 10/14 Exam# [id number] Ordering Dr: Sharita Pearson MD [id number] INDICATION: right flank pain EXAMINATION: CT ABDOMEN AND PELVIS WITHOUT CONTRAST - CT Abdomen And Pelvis W/O Contrast Injection TECHNIQUE: Helically acquired images were obtained of the abdomen and pelvis without oral or IV contrast. A radiation dose optimization technique was used for this scan. IV Contrast dosage and agent: None. Oral contrast: None. RADIATION DOSAGE (If Supplied By Facility): CTDIvol = ( 21.39 ) mGy, DLP = ( 1197.3 ) mGycm COMPARISON: September 16, 2023 FINDINGS: LOWER CHEST: Lung bases are clear. No cardiomegaly or pericardial effusion. The lack of intravenous contrast limits evaluation of solid visceral organs. LIVER: Homogeneous. No focal mass. GALLBLADDER AND BILIARY TREE: No calcified gallstones. No gallbladder distension or wall edema. No intra- or extrahepatic biliary ductal dilation. PANCREAS: No focal cystic or solid mass. SPLEEN: Normal size without focal cystic or solid mass. ADRENAL GLANDS: No nodules. KIDNEYS AND URETERS: There is right-sided perinephric stranding and fluid associated with right sided hydroureteronephrosis secondary to a 4.6 x 7.0 mm calculus within the distal ureter. PERITONEUM: No ascites or free air. No other fluid collection. BOWEL: There are diverticula arising from the colon. There are surgical clips within the right lower quadrant suggestive of prior appendectomy. LYMPH NODES: No enlarged mesenteric or retroperitoneal lymph nodes. VESSELS: Aorta is non-dilated. URINARY BLADDER: Unremarkable. REPRODUCTIVE ORGANS: No pelvic masses. ABDOMINAL WALL: No discrete abdominal or pelvic wall hernia. BONES: No lytic or blastic abnormality. CT/Abdomen/Pelvis without Cont IMPRESSION: Right-sided hydroureteronephrosis secondary to a 4.6 x 7.0 mm calculus within the distal ureter. Colonic diverticulosis. Electronically Signed: Francisca Redding MD at 12:40 EDT , CC: Dr. Rayna Luna MD; Dr. Sharita Pearson MD Fleece Tier: Signed Normal [facility] Absolute lymphocyte countOrd ered By: Sharita Pearson on 09-26-2023 Lymphocytes Auto (Unsp spec) [#/Vol] 1.83 10*3/uL 0.83-4.51 [facility] Automated lymphocyte count a s percentage of total leukocytesOrdered By: Sharita Pearson on 09-26-2023 Lymphocytes/100 WBC Auto (Unsp spec) 20.9 % 19-41 [facility] Basic Metabolic Profile (BMP )on 09-26-2023 BUN/CRE 16.5 RATIO Normal 10-20 [facility] Comment on above: Performed By: #### L 500.2500, L100.0100 ####[facility] [address] [place], [address] CA,Total 8.7 mg/dL Normal 8.5-10.1 [facility] Comment on above: Performed By: #### L 500.2500, L100.0100 ####[facility] [address] [place], [address] Chloride [Moles/Vol] 106 mmol/L Normal 98-107 [facility] Comment on above: Performed By: #### L 500.2500, L100.0100 ####[facility] [address] [place], [address] CO2 [Moles/Vol] 24.0 mmol/L Normal 21.0-32.0 [facility] Comment on above: Performed By: #### L 500.2500, L100.0100 ####[facility] [address] [place], [address] Creatinine [Mass/Vol] 0.79 mg/dL Normal 0.55-1.02 [facility] Comment on above: Result Comment: The validity of the calculated GFR GFRAA in patients over 70 years has not been determined. Clinical correlation is essential. Performed By: #### L 500.2500, L100.0100 ####[facility] [address] [place], [address] ECRCL 155.01 ml/min Normal [facility] Comment on above: Performed By: #### L 500.2500, L100.0100 ####[facility] [address] [place], [address] EST GFR - AA 109 mL/min Normal >60 [facility] Comment on above: Result Comment: Afri can Tunisian GFR Calc Performed By: #### L 500.2500, L100.0100 ####[facility] [address] [place], [address] GAP 8 Normal 5-15 [facility] Comment on above: Performed By: #### L 500.2500, L100.0100 ####[facility] [address] [place], [address] GFR/1.73 sq M.predicted among non-blacks MDRD (S/P/Bld) [Vol rate/Area] 90 mL/min/{1.73_m2} Normal >60 [facility] Comment on above: Result Comment: Non- GFR Calc Performed By: #### L 500.2500, L100.0100 ####[facility] [address] [place], [address] Glucose [Mass/Vol] 108 mg/dL High 74-106 [facility] Comment on above: Result Comment: Fast ing Glucose result from 100 to 125 mg/dL suggests IMPAIRED HOMEOSTASIS per A.D.A. criteria. Performed By: #### L 500.2500, L100.0100 ####[facility] [address] [place], [address] Potassium [Moles/Vol] 4.0 mmol/L Normal 3.5-5.1 [facility] Comment on above: Performed By: #### L 500.2500, L100.0100 ####[facility] [address] [place], [address] Sodium [Moles/Vol] 138 mmol/L Normal 136-145 [facility] Comment on above: Performed By: #### L 500.2500, L100.0100 ####[facility] [address] [place], [address] Urea nitrogen [Mass/Vol] 13 mg/dL Normal 7-18 [facility] Comment on above: Performed By: #### L 500.2500, L100.0100 ####[facility] [address] [place], [address] Basophil percentageOrdered B y: Sharita Pearson on 09-26-2023 Basophil percentage 0-5 SEEN /hpf 0-5 [facility] Basophils/100 WBC (Bld) 0.3 % 0-1 [facility] Chloride [Moles/Vol] 106 mmol/L 98-107 [facility] Eosinophils/100 WBC (Bld) 1.4 % 0-5 [facility] Glucose [Mass/Vol] 108 mg/dL 74-106 [facility] Comment on above: Fasting Glucose resu lt from 100 to 125 mg/dL suggests IMPAIRED HOMEOSTASIS per A.D.A. criteria. Hemoglobin (Bld) [Mass/Vol] 13.6 g/dL 12.0-15.0 [facility] Monocytes/100 WBC (Bld) 8.2 % 0-10 [facility] Neutrophils (Bld) [#/Vol] 6.0 10*3/uL 2.0-7.7 [facility] Neutrophils/100 WBC (Bld) 69.0 % 47-70 [facility] Potassium [Moles/Vol] 4.0 mmol/L 3.5-5.1 [facility] Sodium [Moles/Vol] 138 mmol/L 136-145 [facility] WBC (Bld) [#/Vol] 8.8 10*3/uL 4.4-11.0 [facility] Bilirubin Test strip Ql (U)O rdered By: Sharita Pearson on 09-26-2023 Bilirubin Ql (U) Negative Negative [facility] CBC W/Diff, Automatedon Absolute Lymph 1.83 X10 3/uL Normal 0.83-4.51 [facility] Comment on above: Performed By: #### L 500.2500, L100.0100 ####[facility] [address] [place], [address] Absolute Neut 6.0 X10 3/uL Normal 2.0-7.7 [facility] Comment on above: Performed By: #### L 500.2500, L100.0100 ####[facility] [address] [place], [address] Basophils/100 WBC (Bld) 0.3 % Normal 0-1 [facility] Comment on above: Performed By: #### L 500.2500, L100.0100 ####[facility] [address] [place], [address] Eosinophils/100 WBC (Bld) 1.4 % Normal 0-5 [facility] Comment on above: Performed By: #### L 500.2500, L100.0100 ####[facility] [address] [place], [address] Erythrocyte distribution width (RBC) [Ratio] 12.5 % Normal 11.6-14.6 [facility] Comment on above: Performed By: #### L 500.2500, L100.0100 ####[facility] [address] [place], [address] Hematocrit (Bld) [Volume fraction] 40.9 % Normal 37-47 [facility] Comment on above: Performed By: #### L 500.2500, L100.0100 ####[facility] [address] [place], [address] Hemoglobin (Bld) [Mass/Vol] 13.6 g/dL Normal 12.0-15.0 [facility] Comment on above: Performed By: #### L 500.2500, L100.0100 ####[facility] [address] [place], [address] IG% 0.200 Normal 0.0-0.9 [facility] Comment on above: Result Comment: IG% - Immature Granulocytes (promyelocytes, myelocytes and metamyelocytes) > 1% indicates that a LEFT SHIFT is Present. Performed By: #### L 500.2500, L100.0100 ####[facility] [address] [place], [address] Lymphocytes/100 WBC (Bld) 20.9 % Normal 19-41 [facility] Comment on above: Performed By: #### L 500.2500, L100.0100 ####[facility] [address] [place], [address] MCH (RBC) [Entitic mass] 28.6 pg Normal 27.0-32.0 [facility] Comment on above: Performed By: #### L 500.2500, L100.0100 ####[facility] [address] [place], [address] MCHC (RBC) [Mass/Vol] 33.3 g/dL Normal 32-36 [facility] Comment on above: Performed By: #### L 500.2500, L100.0100 ####[facility] [address] [place], [address] MCV (RBC) [Entitic vol] 85.9 fL Normal 81-99 [facility] Comment on above: Performed By: #### L 500.2500, L100.0100 ####[facility] [address] [place], [address] Monocytes/100 WBC (Bld) 8.2 % Normal 0-10 [facility] Comment on above: Performed By: #### L 500.2500, L100.0100 ####[facility] [address] [place], [address] Neutrophils/100 WBC (Bld) 69.0 % Normal 47-70 [facility] Comment on above: Performed By: #### L 500.2500, L100.0100 ####[facility] [address] [place], [address] Nucleated RBC (Bld) [#/Vol] 0 10*3/uL Normal 0-5 [facility] Comment on above: Performed By: #### L 500.2500, L100.0100 ####[facility] [address] [place], [address] Platelet mean volume (Bld) [Entitic vol] 10.7 fL Normal 6.2-12.0 [facility] Comment on above: Performed By: #### L 500.2500, L100.0100 ####[facility] [address] [place], [address] Platelets (Bld) [#/Vol] 239 10*3/uL Normal 150-450 [facility] Comment on above: Performed By: #### L 500.2500, L100.0100 ####[facility] [address] [place], [address] RBC (Bld) [#/Vol] 4.76 10*6/uL Normal 4.2-5.4 [facility] Comment on above: Performed By: #### L 500.2500, L100.0100 ####[facility] [address] [place], [address] RDW SD 39.7 fl Normal 35.1-43.9 [facility] Comment on above: Performed By: #### L 500.2500, L100.0100 ####[facility] [address] [place], [address] WBC (Bld) [#/Vol] 8.8 10*3/uL Normal 4.4-11.0 [facility] Comment on above: Performed By: #### L 500.2500, L100.0100 ####[facility] [address] [place], [address] Determination of erythrocyte mean corpuscular volume (MCV)Ordered By: Sharita Pearson on 09-26-2023 MCV (RBC) [Entitic vol] 85.9 fL 81-99 [facility] Emergency Department Summary on 09-26-2023 Emergency Department Summary [facility] Medical Records Department [address] [place] [address] Emergency Department Summary 09/26/23 MR#: [id number] Acct: [id number] Name: VALENTINO FRIAS Rep #: [id number] : 1990 33 From: Sharita Pearson MD PCP: Dr. Rayna Luna MD Status:DEP ER Location: ED HPI History of Present Illness Chief Complaint: Flank Pain Informant: patient Onset/Context/Timing Onset: Today Narrative Narrative: Patient presents with right flank pain and urinary frequency that started around 2 AM this morning. She does have a history of kidney stones. No recent dysuria. She is never required surgery for her kidney stones in the past. [facility] Medical History (Updated 09/26/23 @ 13:[address] Sharita Pearson MD) 39 weeks gestation of COVID-19 Encounter for sterilization History of kidney stones Home Medications [id number] 1 mg tablet 1 tab PO DAILY Check with primary doctor 11/03/21 [History Last Taken 11/03/21] sennosides 8.6 mg-docusate sodium 50 mg tablet (Stool Softener-Stimulant Laxative) 1 - 2 tab PO DAILY #0 tabs 11/04/21 [Rx Last Taken Unknown] hydrocodone-acetaminophe n 5-325mg 5mg-325mg 1 tab PO Q6H PRN PRN Pain 3 days #10 TABLETS 09/26/23 [Rx Last Taken Unknown] ibuprofen 600 mg tablet 600 mg PO Q6H PRN PRN pain #20 TABLETS 09/26/23 [Rx Last Taken Unknown] ondansetron 4 mg disintegrating tablet 4 mg PO Q8H PRN PRN Nausea #10 tabs 09/26/23 [Rx Last Taken Unknown] Allergy/AdvReac Type Severity Reaction Status Date / Time No Known Allergies Allergy Verified 09/26/23 10:44 Surgical History Delivery by section H/O oophorectomy Previous delivery affecting Social History Smoking Status: Never smoker ROS ROS ED Constitutional Constitutional ED: Denies chills or fever(s) Eyes Eyes: Denies discharge from eye(s) ENT ENT ED: Denies discharge from eye(s), rhinorrhea or sore throat Cardiovascular Cardiovascular: Denies chest pain or palpitations Respiratory/Chest Respiratory/Chest: Denies cough or dyspnea Gastrointestinal Gastrointestinal: Reports abdominal pain and nausea; Denies diarrhea or vomiting Genitourinary Genitourinary ED: Reports urinary frequency Musculoskeletal Musculoskeletal: Reports back pain; Denies extremity pain Integumentary Denies Abrasions or rash Neurologic Neurologic: Denies headache(s) or weakness Allergic/Immunologic Allergic/Immunologic ED: Denies lip swelling or urticaria EXAM Physical Exam Const Vital Signs: 09/26/23 10:42 09/26/23 10:44 09/26/23 12:37 Temperature 98.2 F 98.2 F Temperature Source Temporal Temporal Pulse Rate 89 89 73 Respiratory Rate 16 16 18 Blood Pressure 160/100 H 160/100 H 135/72 H Blood Pressure Mean 120 120 93 Pulse Ox 99 98 98 Oxygen Delivery Method Nasal Cannula Room Air Room Air Positive well nourished and well developed General Appearance ED: well developed HEENT Reports moist mucous membranes Eyes EOMs intact bilaterally Chest Wall inspection of chest normal and palpation of chest normal Resp normal respiratory effort and clear to auscultation bilaterally Cardio regular rate and regular rhythm GI non-tender Palpation: soft Back/Spine General Back: CVA tenderness right Neuro oriented x3 and no sensory deficits noted Motor Exam: strength 5/5 throughout Psych mental status grossly normal Skin no rashes or lesions noted MDM MDM MDM Narrative Medical decision making narrative: IV line established. Patient given Toradol and Zofran. Labwork obtained to evaluate for leukocytosis, anemia, and electrolyte derangement. Urinalysis obtained to evaluate for infection/hematuria. CT flank obtained to evaluate for potential pyelonephritis or renal stone. History Record Review Discussion w/independent historian: Patient Lab Data Attestation: I reviewed the patient's lab results. Labs: Laboratory Results - last 24 hr 09/26/23 11:15 WBC 8.8 RBC 4.76 Hgb 13.6 Hct 40.9 MCV 85.9 MCH 28.6 MCHC 33.3 RDW Std Deviation 39.7 RDW Coeff of Ophelia 12.5 Plt Count 239 MPV 10.7 Immature Gran % (Auto) 0.200 Neut % (Auto) 69.0 Lymph % (Auto) 20.9 Morgan % (Auto) 8.2 Eos % (Auto) 1.4 Baso % (Auto) 0.3 Absolute Neuts (auto) 6.0 Absolute Lymphs (auto) 1.83 Nucleated RBC % 0 Sodium 138 Potassium 4.0 Chloride 106 Carbon Dioxide 24.0 Anion Gap 8 BUN 13 Creatinine 0.79 Estim Creat Clear Calc 155.01 Est GFR (MDRD) Af Amer 109 Est GFR (MDRD) Non-Af 90 BUN/Creatinine Ratio 16.5 Glucose 108 H Calcium 8.7 Urine Color Yellow Urine Clarity (more content not included)... Normal [facility] Erythrocyte distribution wid th ratioOrdered By: Sharita Pearson on 09-26-2023 Erythrocyte distribution width (RBC) [Ratio] 12.5 % 11.6-14.6 [facility] Erythrocyte distribution wid th standard deviationOrdered By: Sharita Pearson on 09-26-2023 Erythrocyte distribution width (RBC) [Entitic vol] 39.7 fL 35.1-43.9 [facility] Hematocrit Auto (Bld) [Volum e fraction]Ordered By: Sharita Pearson on 09-26-2023 Hematocrit (Bld) [Volume fraction] 40.9 % 37-47 [facility] Immature granulocytes/100 WB C Auto (Bld)Ordered By: Sharita Pearson on 09-26-2023 Immature granulocytes/100 WBC (Bld) 0.200 % 0.0-0.9 [facility] Comment on above: IG% - Immature Granu locytes (promyelocytes, myelocytes and metamyelocytes) > 1% indicates that a LEFT SHIFT is Present. Ketones Test strip Ql (U)Ord ered By: Sharita Pearson on 09-26-2023 Ketones Ql (U) 50 mg/dl Negative [facility] Laboratory - Chemistry and C hemistry - challengeOrdered By: Sharita Pearson on 09-26-2023 CO2 [Moles/Vol] 24.0 mmol/L 21.0-32.0 [facility] HCG ( test) Ql (U) Negative [facility] Comment on above: Very dilute urine sp ecimens, as indicated by a low specificgravity, may not contain b2b outside sales representative levels of hCG. If is still suspected, a first morning urinespecimen should be collected 48 hours later and tested. Urea nitrogen/Creatinine [Mass ratio] 16.5 mg/mg 10-20 [facility] Laboratory - Hematology and Cell countsOrdered By: Sharita Pearson on 09-26-2023 MCH (RBC) [Entitic mass] 28.6 pg 27.0-32.0 [facility] MCHC (RBC) [Mass/Vol] 33.3 g/dL 32-36 [facility] Nucleated RBC/100 WBC (Bld) [Ratio] 0 % 0-5 [facility] Platelet mean volume (Bld) [Entitic vol] 10.7 fL 6.2-12.0 [facility] Platelets (Bld) [#/Vol] 239 10*3/uL 150-450 [facility] Mucus LM Ql (Urine sed)Order ed By: Sharita Pearson on 09-26-2023 Mucus Ql (Urine sed) 0 SEEN /hpf [facility] Nitrite Test strip Ql (U)Ord ered By: Sharita Pearson on 09-26-2023 Nitrite Ql (U) Negative Negative [facility] No Panel InformationOrdered By: Sharita Pearson on 09-26-2023 Estimated Creatinine Clearance Calc 155.01 ml/min [facility] Estimated GFR (MDRD) Amer 109 mL/min >60 [facility] Comment on above: GFR Calc Estimated GFR (MDRD) Non-Af Amer 90 mL/min >60 [facility] Comment on above: Non- GFR Calc Urine RBC 5-10 SEEN /hpf 0-5 [facility] ,Urineon 09-26-2023 Beta HCG ( test) Ql (U) Negative Normal [facility] Comment on above: Order Comment: CLEAN CATCH Result Comment: Very dilute urine specimens, as indicated by a low specific gravity, may not contain b2b outside sales representative levels of hCG. If is still suspected, a first morning urine specimen should be collected 48 hours later and tested. Performed By: #### L 400.7600, L400.0001 #### [facility] [address] [place] [address]. [place], [address] Protein Test strip Ql (U)Ord ered By: Sharita Pearson on 09-26-2023 Protein Ql (U) 30 mg/dl Negative [facility] RBC Auto (Bld) [#/Vol]Ordere d By: Sharita Pearson on 09-26-2023 RBC (Bld) [#/Vol] 4.76 10*6/uL 4.2-5.4 [facility] Serum or plasma calcium gisela urement (mass/volume)Ordered By: Sharita Pearson on 09-26-2023 Calcium [Mass/Vol] 8.7 mg/dL 8.5-10.1 [facility] Serum or plasma creatinine m easurement (mass/volume)Ordered By: Sharita Pearson on 09-26-2023 Creatinine [Mass/Vol] 0.79 mg/dL 0.55-1.02 [facility] Comment on above: The validity of the calculated GFR & GFRAA in patients over 70 years has not been determined. Clinical correlation is essential. Serum or plasma urea nitroge n measurement (mass/volume)Ordered By: Sharita Pearson on 09-26-2023 Urea nitrogen [Mass/Vol] 13 mg/dL 7-18 [facility] Squamous epithelial cells de tection in urine sediment by light microscopyOrdered By: Sharita Pearson on 09-26-2023 Epithelial cells.squamous LM Ql (Urine sed) 0-5 SEEN /hpf 5-10 [facility] Thin prep Papanicolaou smear with manual screeningOrdered By: Sharita Pearson on 09-26-2023 Thin prep Papanicolaou smear with manual screening 8 -15 [facility] Urinalysis, Completeon 09-25 EPI,SQUAMOUS 0-5 SEEN Normal 5-10 [facility] Comment on above: Order Comment: CLEAN CATCH Performed By: #### L 400.7600, L400.0001 #### [facility] [address] [place], [address] RBC 5-10 SEEN Normal 0-5 [facility] Comment on above: Order Comment: CLEAN CATCH Performed By: #### L 400.7600, L400.0001 #### [facility] [address] [facility] [address] WBC 0-5 SEEN Normal 0-5 [facility] Comment on above: Order Comment: CLEAN CATCH Performed By: #### L 400.7600, L400.0001 #### [facility] [address] [place], [address] BACTERIA 0 SEEN Normal None Seen [facility] Comment on above: Order Comment: CLEAN CATCH Performed By: #### L 400.7600, L400.0001 #### [facility] [address] [place], [address] Mucus Ql (Urine sed) 0 SEEN Normal [facility] Comment on above: Order Comment: CLEAN CATCH Performed By: #### L 400.7600, L400.0001 #### [facility] [address] [facility] [address] Urine blood detectionOrdered By: Sharita Pearson on 09-26-2023 RBC Ql (U) 50 /ul Negative [facility] Urine clarityOrdered By: Bianca Pearson on 09-26-2023 Clarity (U) Clear Clear [facility] Urine color determinationOrd ered By: hSarita Pearson on 09-26-2023 Color (U) Yellow Yellow [facility] Urine glucose detectionOrder ed By: Sharita Pearson on 09-26-2023 Glucose Ql (U) Normal mg/dl Normal [facility] Urine leukocyte esterase det ection by dipstickOrdered By: Sharita Pearson on 09-26-2023 Leukocyte esterase Test strip Ql (U) 25 /ul Negative [facility] Urine pHOrdered By: Sharita Pearson on 09-26-2023 pH (U) 6.5 [pH] 5.0 - 8.0 [facility] Urine sediment bacteria coun t by microscopy (number/high power field)Ordered By: Sharita Pearson on 09-26-2023 Bacteria LM.HPF (Urine sed) [#/Area] 0 /[HPF] None Seen [facility] Urine specific gravity measu rementOrdered By: Sharita Pearson on 09-26-2023 Specific gravity (U) [Rel density] 1.020 1.002-1.030 [facility] Urine urobilinogen measureme ntOrdered By: Sharita Pearson on 09-26-2023 Urobilinogen Ql (U) Normal mg/dl Normal [facility] Abdomen/Pelvis without Conto n 09-16-2023 Abdomen/Pelvis without Cont [facility] Imaging Services [address] [place] [address] Abdomen/Pelvis without Cont MR#: [id number] Acct: [id number] Name: VALENTINO FRIAS Rep #: [id number] : 1990 F 33 From: Michoacano Villalpando MD PCP: Dr. Rayna Luna MD Status: REG CLI Study: Abdomen/Pelvis without Cont Date of Exam: 08/23 10/14 Exam# [id number] Ordering Dr: Elisha Nogueira [employer] [id number] STUDY: CT ABDOMEN AND PELVIS WITHOUT CONTRAST REASON FOR EXAM: Female, 33 years old. KIDNEY STONE RADIATION DOSAGE (If Supplied By Facility): CTDIvol = ( 20.99 ) mGy, DLP = ( 1122.49 ) mGycm TECHNIQUE: Transaxial images were obtained from the dome of the diaphragm to the symphysis pubis without oral contrast, and without intravenous contrast. Sagittal and coronal images were reconstructed. Individualized dose optimization techniques were used for this CT. COMPARISON: None. FINDINGS: The visualized lung bases are unremarkable. The visualized portions of the heart are within normal limits. Normal liver. Normal gallbladder and extrahepatic biliary system. Normal spleen. Normal pancreas. Normal bilateral adrenal glands. Normal right kidney. Normal left kidney. Normal visualized stomach. Normal small intestine. Normal colon. There are surgical clips in the region of the appendix consistent with a prior appendectomy. Normal abdominal aorta. Normal inferior vena cava. Normal retroperitoneum. Normal urinary bladder. Some calcifications within the pelvis felt to represent phleboliths. Normal abdominal wall. Mild levoscoliosis lumbar spine. CT/Abdomen/Pelvis without Cont IMPRESSION: Normal unenhanced CT of the abdomen and pelvis. No definite renal or ureteral stone. Phleboliths of pelvis. Intravenous pyelogram or a renal protocol CT with excretory phase imaging may exclude distal ureteral stone. However, there is no ureteral dilatation or hydronephrosis. Electronically Signed: Michoacano Villalpando MD at 22:12 EDT , CC: AGUSTINA Nogueira; Dr. Rayna Luna MD Fleece Tier: Signed Normal [facility] Urine Cultureon 09-02-2023 URC Culture exhibits no growth. Normal [facility] Comment on above: Performed By: #### M 100.2200 #### [facility] [address] [place], [address] Culture, urineOrdered By: Ra edwin Nogueira on 09-01-2023 Bacteria identified Cx Nom (U) Culture exhibits no growth. [facility] CNOVon 06-16-2023 CNOV Office Visit (UCWSTR ) -------- VALENTINO FRIAS ([id number]) 1990 F Date Time Provider Department 06/16/23 11:45 AM PERICO SHAH RUST During your visit today, we recorded the following information about you: Temperature Pulse Respiration Blood pressure 97.7 degrees 115/minute 21/minute 110/78 Weight 122 kg Perico Shah PA 06/16/2023 11:54 AM Signed This note was created using [employer]. Subjective Valentino Frias is a 32 year old female. HPI 32-year-old female presents for body aches, fever, sore throat. Patient states sore throat started yesterday. She had a fever last night of 102 ?F. She has had a body aches. No cough, congestion. No known exposure to strep. No vomiting. Still able to eat and drink. PAST MEDICAL HISTORY Diagnosis Date Complication of anesthesia Vomiting that started 12 hours after surgery Kidney stone 2019 Ovarian torsion 2014 LEFT OVARY hypertension PAST SURGICAL HISTORY Procedure Laterality Date APPENDECTOMY DELIVERY ONLY 09/09/2018 C/S low transverse DELIVERY ONLY 11/03/2021 LTCS F OVARIAN CYSTECTOMY 11/22/2014 benign OOPHORECTOMY PARTIAL/TOTAL UNI/BI 11/22/2014 Ovarian torsion - LSO performed SALPINGECTOMY Bilateral 11/03/2021 ALLERGIES Patient has no known allergies. MEDICATIONS loratadine (CLARITIN ORAL) Take by mouth as needed. pyridoxine, vitamin B6, (VITAMIN B-6) 25 mg tablet Take 25 mg by mouth four times daily. (Patient not taking: Reported on 06/23/2021 ) multivitamin (CLASSIC ) 28 mg iron- 800 mcg tab(s) Take 1 tablet by mouth once daily. (Patient not taking: Reported on 07/15/2022) FAMILY HISTORY Problem Relation Age of Onset Thyroid Mother Depression Mother Hypertension Father No Known Problems Sister Arthritis Maternal Grandmother Breast Cancer Maternal Grandmother Alcohol/Drug Maternal Grandfather ETOH Macular Degen Paternal Grandmother Heart Paternal Grandfather [place] No Known Problems Son Social History Tobacco Use Smoking status: Never Smokeless tobacco: Never Vaping Use Vaping Use: Never used Substance Use Topics Alcohol use: Not Currently Drug use: No Review of Systems Constitutional: Positive for fever. Negative for chills. HENT: Positive for sore throat. Negative for congestion and ear pain. Respiratory: Negative for cough and shortness of breath. Cardiovascular: Negative for chest pain. Gastrointestinal: Negative for diarrhea and vomiting. Musculoskeletal: Positive for myalgias. Objective BP 110/78 Pulse 115 Temp 36.5 ?C (97.7 ?F) Resp 21 Wt 122 kg (269 lb) LMP 02/03/2021 (Exact Date) SpO2 98% BMI 36.99 kg/m? Physical Exam Vitals and nursing note reviewed. Constitutional: General: She is not in acute distress. Appearance: Normal appearance. She is not toxic-appearing. HENT: Right Ear: Tympanic membrane and ear canal normal. Left Ear: Tympanic membrane and ear canal normal. Nose: Nose normal. Mouth/Throat: Mouth: Mucous membranes are moist. Pharynx: Uvula midline. Posterior oropharyngeal erythema present. No oropharyngeal exudate. Tonsils: Tonsillar exudate present. No tonsillar abscesses. 2+ on the right. 2+ on the left. Eyes: Conjunctiva/sclera: Conjunctivae normal. Cardiovascular: Rate and Rhythm: Normal rate and regular rhythm. Pulmonary: Effort: Pulmonary effort is normal. Breath sounds: Normal breath sounds. Lymphadenopathy: Cervical: Cervical adenopathy present. Neurological: Mental Status: She is alert. Assessment and Plan ASSESSMENT/PLAN: 1. Strep pharyngitis - ICD9: 034.0, ICD10: J02.0 (primary diagnosis) - suspect strep - Group A strep molecular testing positive - Amoxicillin for 10 days. - Discussed supportive care treatment with fluids, rest and analgesia. - Contagious dz precautions discussed- including considered contagious until on antibiotics for 24 hours 2. Sore throat - ICD9: 462, ICD10: J02.9 - STREP A MOLECULAR (POC) Diagnosis and treatment plan were discussed and questions were answered to the patient's satisfaction. Pt acknowledged understanding of concepts and follow up plan. Specific signs and symptoms that would indicate the need for higher level of care were discussed in detail warranting prompt ER evaluation. SIDDHARTHA Hernandez Allergies As of Date: 06/16/2023 (No Known Allergies) Date Reviewed: 06/16/2023 Reviewed by: Chelsea Barclay MA - Fully Assessed Reason for Visit: Sore Throat [200] Cmt: Fever, body aches x 2 days Primary Visit Diagnosis:Strep pharyngitis [J02.0] Other Visit Diagnosis:Sore throat [J02.9] Order(s):STREP A MOLECULAR (POC) [1459819] Order #: [id number]. #:[id number] amoxicillin (AMOXIL) 400 mg/5 mL suspensionTake 6.3 mL by mouth two times a day for 10 days.Disp: 126 mLRfl: 0 Prescrip (more content not included)... Normal [facility] XR CHEST 2V FRONTAL/LATon [facility] XR Chest PA and Lateralon IMPRESSION: No acute radiographic abnormality. Fleece Tier: PSCB Transcribe Date/Time: Jul 15 2022 3:08P Dictated by : JEANETTE LAZO MD This examination was interpreted and the report reviewed and electronically signed by: JEANETTE LAZO MD on Jul 15 2022 3:08PM [facility] DIV[facility] * * *Final Report* * * DATE OF EXAM: Jul 15 2022 3:00PM WOX 5291 - XR CHEST 2V FRONTAL/LAT / PROCEDURE REASON: Acute cough * * * * Physician Interpretation * * * * EXAMINATION: CHEST RADIOGRAPH (2 VIEW FRONTAL & LATERAL) CLINICAL HISTORY: Acute cough MQ: XC2_6 EXAM DATE/TIME: 07/15/2022 3:00 PM COMPARISON: No relevant prior studies available. RESULT: Lines, tubes, and devices: None. Lungs and pleura: No consolidation. No lung mass. No pleural effusion. No pneumothorax. Cardiomediastinal silhouette: Normal cardiomediastinal silhouette. Bones and soft tissues: Unremarkable. DIV[facility]Y [facility] * * *Final Report* * * DATE OF EXAM: Jul 15 2022 3:00PM WOX 5291 - XR CHEST 2V FRONTAL/LAT / PROCEDURE REASON: Acute cough * * * * Physician Interpretation * * * * EXAMINATION: CHEST RADIOGRAPH (2 VIEW FRONTAL & LATERAL) CLINICAL HISTORY: Acute cough MQ: XC2_6 EXAM DATE/TIME: 07/15/2022 3:00 PM COMPARISON: No relevant prior studies available. RESULT: Lines, tubes, and devices: None. Lungs and pleura: No consolidation. No lung mass. No pleural effusion. No pneumothorax. Cardiomediastinal silhouette: Normal cardiomediastinal silhouette. Bones and soft tissues: Unremarkable. IMPRESSION IMPRESSION: No acute radiographic abnormality. Fleece Tier: [employer] Transcribe Date/Time: Jul 15 2022 3:08P Dictated by : JEANETTE LAZO MD This examination was interpreted and the report reviewed and electronically signed by: JEANETTE LAZO MD on Jul 15 2022 3:08PM EST [facility] Radiology Study [facility]narrative[facility] Chest PA and LateralOrder ed By: Cc Provider on 07-15-2022 [facility] URINE OB DIP B/Oon 2 Glucose Ql (U) Negative Neg mg/dL [facility] Protein.monoclonal (U) [Mass/Vol] Negative Neg mg/dL [facility] URINE OB DIP B/Oon 2 Glucose Ql (U) Negative Neg mg/dL [facility] Protein.monoclonal (U) [Mass/Vol] Negative Neg mg/dL [facility] URINE OB DIP B/Oon 2 Glucose Ql (U) Negative Neg mg/dL [facility] Protein.monoclonal (U) [Mass/Vol] Negative Neg mg/dL [facility] OBSTETRIC ULTRASOUND WHIon 0 09-15-2021 [facility] URINE OB DIP B/Oon 2 Glucose Ql (U) Negative Neg mg/dL [facility] Protein.monoclonal (U) [Mass/Vol] Negative Neg mg/dL [facility] URINE OB DIP B/Oon 2 Glucose Ql (U) Negative Neg mg/dL [facility] Protein.monoclonal (U) [Mass/Vol] Negative Neg mg/dL [facility] URINE OB DIP B/Oon 2 Glucose Ql (U) Negative Neg mg/dL [facility] Protein.monoclonal (U) [Mass/Vol] Negative Neg mg/dL [facility] Vital Signs Date Time Vital Sign Value Performing Clinician Facility 02-20-2024 13:44-0400 Body mass index (BMI) [Ratio] 37.54 kg/m2 Claudia Tony APRN.PORTAL ADMINISTRATOR Work Phone: [facility] 02-20-2024 13:44-0400 Body temperature 100.09 [degF] Claudia Tony APRN.PORTAL ADMINISTRATOR Work Phone: [facility] 02-20-2024 13:44-0400 Body weight 123.8 kg Claudia Tony APRN.PORTAL ADMINISTRATOR Work Phone: [facility] 02-20-2024 13:44-0400 Diastolic blood pressure 91 mm[Hg] Claudia Tony APRN.PORTAL ADMINISTRATOR Work Phone: [facility] 02-20-2024 13:44-0400 Heart rate 101 /min Claudia Tony APRN.PORTAL ADMINISTRATOR Work Phone: [facility] 02-20-2024 13:44-0400 Respiratory rate 18 /min Claudia Tony APRN.PORTAL ADMINISTRATOR Work Phone: [facility] 02-20-2024 13:44-0400 SaO2% (BldA) [Mass fraction] 99 % Claudia Tony APRN.PORTAL ADMINISTRATOR Work Phone: [facility] 02-20-2024 13:44-0400 Systolic blood pressure 128 mm[Hg] Claudia Tony APRN.PORTAL ADMINISTRATOR Work Phone: [facility] 09-26-2023 13:55-0400 Body temperature 97.2 [degF] [facility] 09-26-2023 13:55-0400 Diastolic blood pressure 75 mm[Hg] [facility] 09-26-2023 13:55-0400 Heart rate 75 /min [facility] 09-26-2023 13:55-0400 Respiratory rate 18 /min [facility] 09-26-2023 13:55-0400 SaO2% (BldA) [Mass fraction] 100 % [facility] 09-26-2023 13:55-0400 Systolic blood pressure 123 mm[Hg] [facility] 09-26-2023 10:42-0400 Body height 185.[address] [facility] 09-26-2023 10:42-0400 Body mass index (BMI) [Ratio] 36.9 kg/m2 [facility] 09-26-2023 10:42-0400 Body weight [address] [facility] 07-15-2022 14:38-0500 Body temperature 98.4 [degF] Cherie Spicer SENIOR PRICING ANALYST.PORTAL ADMINISTRATOR Work Phone: [facility] 07-15-2022 14:38-0500 Body weight 120.66 kg Cherie Spicer SENIOR PRICING ANALYST.PORTAL ADMINISTRATOR Work Phone: [facility] 07-15-2022 14:38-0500 Diastolic blood pressure 86 mm[Hg] Cherie Spicer SENIOR PRICING ANALYST.PORTAL ADMINISTRATOR Work Phone: [facility] 07-15-2022 14:38-0500 Heart rate 110 /min Cherie Spicer SENIOR PRICING ANALYST.PORTAL ADMINISTRATOR Work Phone: [facility] 07-15-2022 14:38-0500 Respiratory rate 16 /min Cherie Spicer SENIOR PRICING ANALYST.PORTAL ADMINISTRATOR Work Phone: [facility] 07-15-2022 14:38-0500 SaO2% (BldA) [Mass fraction] 98 % Cherie Spicer SENIOR PRICING ANALYST.PORTAL ADMINISTRATOR Work Phone: [facility] 07-15-2022 14:38-0500 Systolic blood pressure 136 mm[Hg] Cherie Spicer MAURO Work Phone: [facility] 11-17-2021 10:05-0400 Body weight 118.39 kg Sandra Mcneill MD Work Phone: [facility] 11-17-2021 10:05-0400 Diastolic blood pressure 72 mm[Hg] Sandra Mcneill MD Work Phone: [facility] 11-17-2021 10:05-0400 Systolic blood pressure 120 mm[Hg] Sandra Mcneill MD Work Phone: [facility] 10-27-2021 16:25-0400 Body weight 130.18 kg Sandra Mcneill MD Work Phone: [facility] 10-27-2021 16:25-0400 Diastolic blood pressure 74 mm[Hg] Sandra Mcneill MD Work Phone: [facility] 10-27-2021 16:25-0400 Systolic blood pressure 120 mm[Hg] Sandra Mcneill MD Work Phone: [facility] 10-13-2021 14:47-0400 Body weight 127.46 kg Sandra Mcneill MD Work Phone: [facility] 10-13-2021 14:47-0400 Diastolic blood pressure 78 mm[Hg] Sandra Mcneill MD Work Phone: [facility] 10-13-2021 14:47-0400 Systolic blood pressure 122 mm[Hg] Sandra Mcneill MD Work Phone: [facility] 09-29-2021 10:10-0400 Body weight 126.55 kg Sandra Mcneill MD Work Phone: [facility] 09-29-2021 10:10-0400 Diastolic blood pressure 72 mm[Hg] Sandra Mcneill MD Work Phone: [facility] 09-29-2021 10:10-0400 Systolic blood pressure 116 mm[Hg] Sandra Mcneill MD Work Phone: [facility] 09-15-2021 09:44-0400 Body weight 123.38 kg Sandra Mcneill MD Work Phone: [facility] 09-15-2021 09:44-0400 Diastolic blood pressure 72 mm[Hg] Sandra Mcneill MD Work Phone: [facility] 09-15-2021 09:44-0400 Systolic blood pressure 120 mm[Hg] Sandra Mcneill MD Work Phone: [facility] 09-01-2021 11:28-0400 Body weight 121.66 kg Mabel Richardson MD Work Phone: [facility] 09-01-2021 11:28-0400 Diastolic blood pressure 76 mm[Hg] Mabel Richardson MD Work Phone: [facility] 09-01-2021 11:28-0400 Systolic blood pressure 120 mm[Hg] Mabel Richardson MD Work Phone: [facility] 08-18-2021 12:03-0400 Body weight 121.56 kg Sandra Mcneill MD Work Phone: [facility] 08-18-2021 12:03-0400 Diastolic blood pressure 74 mm[Hg] Sandra Mcneill MD Work Phone: [facility] 08-18-2021 12:03-0400 Systolic blood pressure 122 mm[Hg] Sandra Mcneill MD Work Phone: [facility] Encounters Encounter Date Encounter Type Care Provider Facility Start: 03-16-2024 End: 03-16-2024 ambulatory KISHOR PHILLIP [facility] Start: 03-13-2024 End: 03-13-2024 [facility] Start: 02-21-2024 End: 02-21-2024 Telephone encounter Tayler Crenshaw APRN.CNP Work Phone: [facility] Comment on above: Results Start: 02-21-2024 End: 02-21-2024 [facility] Start: 02-21-2024 End: 02-21-2024 Subsequent hospital visit by physician Xr [facility] Work Phone: Radiology Comment on above: Lower respiratory tr act infection [J22] Start: 02-20-2024 End: 02-20-2024 ambulatory [facility] Facility:[facility] Start: 02-20-2024 End: 02-20-2024 Patient encounter procedure Claudia Tony APRN.CNP Work Phone: [facility] Comment on above: Lower respiratory tr act infection (Primary Dx); Wheezing Start: 09-26-2023 End: 09-26-2023 Emergency department patient visit [facility] Work Phone: Start: 09-16-2023 End: 09-16-2023 ambulatory [facility] Work Phone: Start: 09-16-2023 End: 09-16-2023 Patient encounter procedure [facility]-Cat Scan, [facility] Work Phone: Start: 09-16-2023 End: 09-16-2023 ambulatory [facility] Facility:[facility] Start: 09-01-2023 End: 09-01-2023 ambulatory [facility] Work Phone: Start: 09-01-2023 End: 09-01-2023 Patient encounter procedure [facility]-Laboratory, Specimen Work Phone: Start: 09-01-2023 End: 09-01-2023 ambulatory Elisha Nogueira Facility:[facility] Start: 06-16-2023 End: 06-16-2023 ambulatory [facility] Facility:[facility] Start: 07-15-2022 End: 07-15-2022 Subsequent hospital visit by physician Xr [facility] Work Phone: Radiology Comment on above: Acute cough [R05.1] Start: 07-15-2022 End: 07-15-2022 Patient encounter procedure Cherie Dannielle WADE Work Phone: [facility] Comment on above: Acute cough (Primary Dx); Rhinosinusitis Start: 11-17-2021 End: 11-17-2021 Patient encounter procedure Sandra Mcneill MD Work Phone: OB/Gynecology Comment on above: care and examination immediately after delivery (Primary Dx) Start: 11-03-2021 ambulatory Sandra Mcneill MD Work Phone: OB/Gynecology Comment on above: Ob Delivery Note Start: 10-27-2021 End: 10-27-2021 Patient encounter procedure Sandra Mcneill MD Work Phone: OB/Gynecology Comment on above: Encounter for superv ision of other normal in third trimester (Primary Dx); 38 weeks gestation of Start: 10-13-2021 End: 10-13-2021 Patient encounter procedure Sandra Mcneill MD Work Phone: OB/Gynecology Comment on above: Encounter for superv ision of other normal in third trimester (Primary Dx); 36 weeks gestation of Start: 09-29-2021 End: 09-29-2021 Patient encounter procedure Sandra Mcneill MD Work Phone: OB/Gynecology Comment on above: H/O macrosomia in in [place] in prior , currently (Primary Dx); with history of section, antepartum; 34 weeks gestation of Start: 09-15-2021 End: 09-15-2021 Patient encounter procedure Sandra Mcneill MD Work Phone: OB/Gynecology Comment on above: with histo ry of section, antepartum (Primary Dx); H/O macrosomia in infant in prior , currently ; 32 weeks gestation of H/O macrosomia in in ermel[place] in prior , currently (Primary Dx); Obesity complicating , third trimester; 32 weeks gestation of Start: 09-01-2021 End: 09-01-2021 Patient encounter procedure Mabel Richardson MD Work Phone: OB/Gynecology Comment on above: 30 weeks gestation o f (Primary Dx); History of macrosomia in in prior , currently in third trimester Start: 08-18-2021 End: 08-18-2021 Patient encounter procedure Sandra Mcneill MD Work Phone: OB/Gynecology Comment on above: History of macrosomi a in infant in prior , currently in third trimester (Primary Dx); Need for vaccination; 28 weeks gestation of Start: 03-17-2021 Patient requested procedure Sandra Mcneill MD Work Phone: [facility] Work Phone: Procedures Date Procedure Procedure Detail Performing Clinician Start: 02-21-2024 Radiologic exam ches t 2 views Claudia Tony SENIOR PRICING ANALYST.PORTAL ADMINISTRATOR Work Phone: Start: 09-26-2023 CT of abdomen and pe lvis without contrast Start: 09-16-2023 CT of abdomen and pe lvis without contrast Start: 09-01-2023 Urine culture Start: 07-15-2022 Radiologic exam ches t 2 views Cherie Spicer SENIOR PRICING ANALYST.PORTAL ADMINISTRATOR Work Phone: Start: 10-27-2021 URINE OB DIP B/O Sandra Macrina Mcneill MD Work Phone: Start: 10-13-2021 URINE OB DIP B/O Sandra Mcneill MD Work Phone: Start: 09-29-2021 URINE OB DIP B/O Sandra Mcneill MD Work Phone: Start: 09-15-2021 URINE OB DIP B/O Sandra Mcneill MD Work Phone: Start: 09-15-2021 Us preg uterus after 1st trimest 05/24 gestation Sandra Mcneill MD Work Phone: Start: 09-01-2021 URINE OB DIP B/O Mabel villegas MD Work Phone: Start: 08-18-2021 URINE OB DIP B/O Sandra Mcneill MD Work Phone: Plan of Treatment Date Care Activity Detail Author Start: 08-19-2031 Urine microalbumin profile [facility] Start: 03-26-2026 PAP TESTING PAP TESTING [facility] Start: 03-26-2024 PAP TESTING PAP TESTING [facility] Start: 03-26-2024 Screening for malign ant neoplasm of cervix Cervical Cancer Screening [facility] Start: 01-23-2024 Covid-19 Vaccine ( season) Covid-19 Vaccine () [facility] Start: 01-23-2024 Influenza vaccination Influenza Vacc ine (#1) [facility] Start: 09-26-2023 [facility] Start: 05-24-2022 DEPRESSION ASSESSMENT DEPRESSION ASS ESSMENT [facility] Start: 01-22-2022 Influenza vaccination C [facility] Start: 10-27-2021 End: 10-27-2022 SARS-CoV-2 (COVID-19) RNA [Presence] in Respiratory specimen by LILIBETH with probe detection PRE-PROCEDURE & PRE-OPERATIVE COVID Microbiology Routine 38 weeks gestation of Encounter for supervision of other normal in third trimester Expected: 10/27/2021, Expires: 10/27/2022 [facility] Work Phone: Comment on above: Expected: 10/27/2021 , Expires: 10/27/2022 Start: 08-29-2021 HPV TESTING HPV TESTING [facility] Start: 02-26-2021 COVID-19 VACCINE (3 - Booster for Moderna series) COVID-19 VACCINE (3 - Booster for Moderna series) [facility] Start: 01-22-2021 Influenza vaccination INFLUENZA (#1) [facility] Start: 11-21-2020 COVID-19 VACCINE (3 - Booster for Moderna series) COVID-19 VACCINE (3 - Booster for Moderna series) [facility] Start: 08-24-2014 HPV Vaccine (3 - 3-d ose series) HPV Vaccine (3 - 3-dose series) [facility] Start: 08-29-2009 Anxiety Screening Anxiety Screening [facility] Start: 08-29-2009 Depression Screening Depression Scre ening [facility] Start: 2003 Adult depression screening assessment DEPRESSION SCREENING [facility] Start: 1991 HEPATITIS B (1 of 3 - 3-dose series) HEPATITIS B (1 of 3 - 3-dose series) [facility] OBSTETRIC ULTRASOUND WHI OBSTETRIC ULTRASOUND WHI Anc Imaging Routine 28 weeks gestation of History of macrosomia in in prior , currently in third trimester Ordered: 08/18/2021 [facility] Work Phone: Comment on above: Ordered: 08/18/2021 Patient Education ED Kidney Ston e with Pain [facility] Work Phone: Patient referral [facility] Work Phone: ROUTINE, GR OUP B STREP PCR ROUTINE, GROUP B STREP PCR Microbiology Routine 36 weeks gestation of 10/13/2021 3:08 PM EDT [facility] Work Phone: End: 03-21-2025 XR Chest PA and Lateral XR CHEST 2V FRONTAL/LAT Radiology STAT Lower respiratory tract infection 1 Occurrences starting 02/20/2024 until 03/21/2025 [facility] Work Phone: Comment on above: 1 Occurrences starti ng 02/20/2024 until 03/21/2025 [facility] Immunizations Immunization Date Immunization Notes Care Provider Kathie uriarte 08-18-2021 tetanus toxoid, redu bharati diphtheria toxoid, and acellular pertussis vaccine, adsorbed Sandra Mcneill MD Work Phone: [facility] 07-20-2018 tetanus toxoid, redu bharati diphtheria toxoid, and acellular pertussis vaccine, adsorbed Sandra Mcneill MD Work Phone: [facility] 03-18-2018 influenza, injectabl e, quadrivalent, contains preservative Sandra Mcneill MD Work Phone: [facility] Work Phone: 03-18-2018 influenza virus vaccine, unspecified formulation Xr [facility] Work Phone: [facility] 04-25-2014 human papilloma viru s vaccine, quadrivalent Sandra Mcneill MD Work Phone: [facility] 02-22-2013 human papilloma viru s vaccine, quadrivalent Sandra Mcneill MD Work Phone: [facility] Payers Date Payer Category Payer Self-pay [id number] 2017 Unknown MMO MMO [employer] [id number] 2017-Present [phone] [address] [address] [place] [address] Indemnity [id number] 2017 Unknown [id number] 2017 Unknown [id number] 1991 Unknown [id number] Unknown [id number] Unknown [id number] Unknown [id number] Unknown [id number] Social History Date Type Detail Facility Start: 08-27-2012 End: 07-15-2022 Tobacco smoking status NHIS Never smoked tobacco [facility] Start: 08-27-2012 End: 07-15-2022 Tobacco use and exposure Smokeless tobacco non-user [facility] Start: 06-23-2021 End: 02-20-2024 Alcohol intake Ex-drinker (finding) [facility] Start: 02-06-2020 History SDOH Alcohol Frequency 4 [facility] Start: 02-06-2020 History SDOH Alcohol Std Drinks 2 [facility] Start: 02-06-2020 History SDOH Social Connections Phone 5 [facility] Start: 02-06-2020 History SDOH Social Connections Get Together 3 [facility] Start: 02-06-2020 History SDOH Social Connections [employer] 1 [facility] Start: 02-06-2020 History SDOH Physica l Activity DPW 0 [facility] Start: 03-17-2021 Education 17 [facility] Start: 02-17-2021 [facility] Start: 1990 Sex Assigned At Not on file C [facility] Start: 09-05-2021 End: 10-31-2021 Exposure to SARS-CoV-2 (event) Not sure [facility] Start: 11-03-2021 End: 09-26-2023 Tobacco smoking status NHIS Unknown if ever smoked [facility] Start: 09-07-2018 None [facility] Start: 06-30-2019 With Family [facility] Start: 1990 Sex Assigned At Female W [facility] Start: 02-06-2020 End: 06-19-2022 History of Social function [facility] Start: 02-06-2020 End: 06-19-2022 Social connection and isolation panel [facility] Do you belong to any clubs or organizations such as zoroastrian groups, unions, fraternal or athletic groups, or school groups? Yes [facility] Are you now , , , , never or living with a partner? [facility] How often to you hav e a drink containing alcohol? 2-3 time sa week [facility] How many standard dr inks containing alcohol do you have on a typical day? 3 or 4 [facility] How often do you hav e 6 or more drinks on 1 occasion? Less than monthly [facility] How hard is it for y ou to pay for the very basics like food, housing, medical care, and heating Not very hard [facility] Do you feel stress - tense, restless, nervous, or anxious, or unable to sleep at night because your mind is troubled all the time - these days [OSQ] Only a little [facility] (I/We) worried wheth er (my/our) food would run out before (I/we) got money to buy more. Never true [facility] In the past 12 month s, has lack of transportation kept you from medical appointments or from getting medications? No [facility] Clinical Notes 07-20-2018 to 02-21-2024 Telephone Encounter - Meredith Hanna MA - 02/21/2024 9:59 AM EDTTelephone Encounter - Meredith Hanna MA - 02/21/2024 9:59 AM BLAZETTDuke blackwood RT(R) - 02/21/2024 8:20 AM EDT Note Date & Type Note Facility 02-21-2024 Telephone encounter Note Patient notified of results, verbalizes understanding of instructions. Meredith Hanna MA [facility] 02-21-2024 Miscellaneous Notes Patient notified of results, verbalizes understanding of instructions. Meredith Hanna MA Please notify chest xray negative. May continue medication and f/u as discussed during visit. documented in this encounter [facility] 02-21-2024 Telephone encounter Note Please notify chest xray negative. May continue medication and f/u as discussed during visit. [facility] Work Phone: 02-21-2024 History of Presen t illness Narrative Radiology Service Progress Note PATIENT NAME: Valentino Frias DATE OF SERVICE: February 21, 2024 TIME: 8:19 AM PATIENT IDENTITY VERIFICATION COMPLETED USING TWO (2) IDENTIFIERS: Name and Date of confirmed by patient verbally. FALL SCREENING: Has the patient had 2 falls in the last year or 1 fall with injury or currently using an Ambulatory Assistive Device (Walker, Cane, Wheelchair, Crutches, etc.)? No PATIENT GENDER DATA: Female. status: : No status: NO. PATIENT RELEVANT IMPLANT DATA REVIEWED: Yes PATIENT PRESENTS WITH AN IMPLANTABLE OR ATTACHED VARNISH COOKER: No RADIOLOGY DEPARTMENT: General X-ray: Exam(s) Completed: Chest X-Ray PERIPHERAL IV DATA: Not applicable SIGNED BY: MADDY Ling) February 21, 2024 8:19 AM documented in this encounter [facility] 02-21-2024 Note HNO ID: [id number] Author: DUKE FENG RT(R) Service: Radiology Author Type: Technologist Type: Progress Notes Filed: 02/21/2024 08:24 Note Text: Radiology Service Progress Note PATIENT NAME: Valentino Frias DATE OF SERVICE: February 21, 2024 TIME: 8:19 AM PATIENT IDENTITY VERIFICATION COMPLETED USING TWO (2) IDENTIFIERS: Name and Date of confirmed by patient verbally. FALL SCREENING: Has the patient had 2 falls in the last year or 1 fall with injury or currently using an Ambulatory Assistive Device (Walker, Cane, Wheelchair, Crutches, etc.)? No PATIENT GENDER DATA: Female. status: : No status: NO. PATIENT RELEVANT IMPLANT DATA REVIEWED: Yes PATIENT PRESENTS WITH AN IMPLANTABLE OR ATTACHED VARNISH COOKER: No RADIOLOGY DEPARTMENT: General X-ray: Exam(s) Completed: Chest X-Ray PERIPHERAL IV DATA: Not applicable SIGNED BY: Duke Feng RT(R) February 21, 2024 8:19 AM [facility] 02-20-2024 Instructions Claudia Tony APRN.JOSE ALBERTO - 02/20/2024 2:08 PM EDT ASSESSMENT/PLAN: 1. Lower respiratory tract infection - ICD9: 519.8, ICD10: J22 (primary diagnosis) - suspect left lung pneumonia. - She will return tomorrow for chest xray. - DOXYCYCLINE MONOHYDRATE 100 MG TABLET - offered COVID/flu testing-patient declined. 2. Wheezing - ICD9: 786.07, ICD10: R06.2 - ALBUTEROL SULFATE HFA 90 MCG/ACTUATION AEROSOL INHALER - Follow-up with your PCP in 3-5 days if symptoms have not improved or sooner if symptoms worsen - Discussed red flags and need for immediate medical evaluation if any occur. - Discussed supportive care treatment with fluids, rest and analgesia. - Discussed expected course of illness Claudia Tony APRN.PORTAL ADMINISTRATOR [facility] PATIENT INFO PNEUMONIA OVERVIEW Pneumonia is an infection of the lungs. It is a serious illness that can affect people of any age, although it is most serious in the very young, people over the age of 65, and those with underlying medical problems such as congestive heart disease, diabetes, and chronic lung disease. It is most common during the winter months, and occurs more often in smokers and men. This article will focus on community-acquired pneumonia (CAP), which refers to pneumonia that develops in people in the community, rather than in a hospital, fdc, or assisted-living facility. About four million cases of CAP occur each year in the [place], and approximately 20 percent of people require hospitalization. LUNG FUNCTION As we breathe, air is inhaled through the nose and mouth, and travels through the trachea and the bronchi to the bronchioles. At the end of the bronchioles, there are tiny air sacs, called alveoli. Alveoli have thin, porous anguiano that contain capillaries. The mouth and respiratory tract are constantly exposed to microorganisms as air is inhaled through the nose and mouth. However, the body's defenses are usually able prevent microorganisms from entering and infecting the lungs. These defenses include the immune system, the specialized shape of the nose and pharynx, the ability to cough, and fine hair-like structures called cilia located on the bronchi. Pneumonia can develop if your defenses are not adequate or the microorganism is particularly strong. As microorganisms multiply, the alveoli become inflamed and accumulate fluid. These changes lead to the symptoms of pneumonia. HIGH-RISK GROUPS Some groups of adults are at a greater risk of developing pneumonia. These include people who: Are greater than 65 years old Are cigarette smokers Are malnourished due to health conditions or lack of access to food Have underlying lung disease, including cystic fibrosis, asthma, or chronic obstructive pulmonary disease (emphysema) Have other underlying medical problems, including diabetes or heart disease Have a weakened immune system due to HIV, organ transplant, chemotherapy, or chronic steroid use Have difficulty coughing due to stroke, sedating drugs or alcohol, or limited mobility Have had a recent viral upper respiratory tract infection including influenza PNEUMONIA CAUSES Pneumonia can be caused by a variety of microorganisms, including viruses, bacteria, and less commonly, fungi. The most common cause of pneumonia in the [place] is the bacterium Streptococcus pneumoniae, or pneumococcus. Viruses are estimated to be the cause of adult CAP in at least 20 percent of cases. Fungi rarely cause pneumonia in people who are generally healthy; people with a weakened immune system (those with HIV, organ transplant patients, or those on chemotherapy) are at higher risk of fungal infection. Other organisms, such as Mycoplasma, are a common cause of mild pneumonia but can occasionally cause serious disease. PNEUMONIA SYMPTOMS Common symptoms of pneumonia include shortness of breath, pain with breathing, a rapid heart and breathing rate, nausea, vomiting, diarrhea, and a cough that often produces green or yellow sputum; occasionally the sputum is rust colored. Most people have a fever (temperature greater than 100.5 F or 38 C), although elderly people have fever less often. Shaking chills (called rigors) and a change in mental status (confusion, unclear thinking) can occur. The characteristics of pneumonia are different than those of a more common infection, acute viral bronchitis, which does not usually cause fever and does not require treatment with an antibiotic. PNEUMONIA DIAGNOSIS Pneumonia is usually diagnosed with a medical history and physical examination, and sometimes a chest x-ray. The need for further testing depends upon the severity of the illness and the person's risk of complications. Blood oxygen measurement -- Pneumonia can decrease the amount of oxygen available in the blood. As a result, a blood oxygen level is often measured by attaching a small clip to the finger or ear that uses infrared light. In those who are sicker, the oxygen level may be measured by withdrawing a sample of blood from an artery. PNEUMONIA TREATMENT The goal of treatment for patients with CAP is to treat the infection and prevent complications. Initial treatment of CAP is based upon the organism that is likely to be causing pneumonia (called empiric treatment). Most patients improve with empiric treatment. Hospital versus home care -- Most patients are treated for CAP at home with oral antibiotics. People who are seriously ill or are at increased risk for complications may be hospitalized. Hospital monitoring usually includes measurement of heart and breathing rate, temperature, and oxygen levels. Hospitalized patients are usually given intravenous (IV) antibiotics initially. The number of days spent in the hospital is variable, and depends upon how a person responds to treatment and if there are underlying medical problems. Some patients, including people with previous lung damage or disease, a weakened immune system, or infection in more than one lobe of the lungs (called multilobar pneumonia), may be slow to recover and require a longer hospitalization. Antibiotic choice -- A number of antibiotic treatment regimens exist for treatment of CAP. The choice of which antibiotic to use is based upon several factors, including the person's underlying medical problems and the likelihood of being infected with a bacteria that is resistant to specific drugs. People with certain underlying medical problems and those who have used antibiotics in the past three months have a higher risk of infection with drug resistant bacteria. For all antibiotic regimens, it is important to finish the entire course of medication and take it exactly as directed. EXPECTED RECOVERY FROM PNEUMONIA A person with pneumonia usually begins to improve after three to five days of antibiotic treatment. Improvement may be defined as feeling better or having fewer symptoms, such as cough and fever. Fatigue and a persistent, but milder, cough can last for up to one month, although most people are able to resume their usual activities within seven days. Patients treated in the hospital may require three weeks or more to resume normal activities. All patients, whether treated at home or in the hospital, should take special care of themselves during the recovery period. This includes getting adequate rest at night and taking naps during the day if needed. Patients should drink fluids to avoid becoming dehydrated; there is no specific amount of fluid recommended, but thirst is a good indicator of the need to drink more fluids. Patients should be sure to finish all of their antibiotic medication, even if they feel better after a few days. WHEN TO SEEK HELP Anyone who suspects that they have pneumonia should seek medical care as soon as possible. Pneumonia is a serious illness that can be life-threatening if not treated, especially for people who are older than 65 years, alcoholic, have underlying medical problems, or a weakened immune system. People with the following symptoms should see their healthcare provider promptly: Fever and cough with phlegm that does not improve or worsens New shortness of breath with normal daily activities Chest pain with breathing Feeling suddenly worse after a cold or the flu PREVENTION The pneumococcal vaccine is one of the most effective ways to prevent pneumonia. Smoking cessation is another important way to prevent pneumonia. Infection control -- Infection control measures can help to prevent the spread of any type of infection, including pneumonia. Infection control is most commonly practiced in healthcare settings, but is useful in the community as well. Simple practices such as frequent hand washing with soap and water or alcohol-based hand rubs can be effective. Because pneumonia is spread by contact with infected respiratory secretions, people with pneumonia should limit [id number] contact with uninfected family and friends. The mouth and nose should be covered while coughing or sneezing, and tissues should be disposed of immediately. Sneezing/coughing into the sleeve of one's clothing (at the inner elbow) is another means of containing sprays of saliva and secretions and has the advantage of not contaminating the hands. documented in this encounter [facility] 02-20-2024 Note HNO ID: [id number] Author: CLAUDIA TONY APRN.PORTAL ADMINISTRATOR Service: ? Author Type: Nurse Practitioner Type: Progress Notes Filed: 02/20/2024 14:18 Note Text: Subjective Cough Associated symptoms include chills, headaches, myalgias, shortness of breath and wheezing. Pertinent negatives include no chest pain. Valentino Frias is a 33 year old female who presents with 4 days of fever, chills, body aches, headache, and cough. She is having some wheezing and shortness of breath. Her son was recently diagnosed with pneumonia. She has been taking ibuprofen for fever. Review of Systems Constitutional: Positive for chills, fever and malaise/fatigue. HENT: Negative. Respiratory: Positive for cough, shortness of breath and wheezing. Negative for sputum production. Cardiovascular: Negative for chest pain. Gastrointestinal: Negative for diarrhea, nausea and vomiting. Musculoskeletal: Positive for myalgias. Neurological: Positive for headaches. BP 128/91 Pulse 101 Temp 37.8 ?C (100.1 ?F) Resp 18 Wt 123.8 kg (272 lb 14.9 oz) LMP 02/03/2021 (Exact Date) SpO2 99% BMI 37.54 kg/m? PAST MEDICAL HISTORY Diagnosis Date Complication of anesthesia Vomiting that started 12 hours after surgery Kidney stone 2019 Ovarian torsion 2014 LEFT OVARY hypertension PAST SURGICAL HISTORY Procedure Laterality Date APPENDECTOMY DELIVERY ONLY 09/09/2018 C/S low transverse DELIVERY ONLY 11/03/2021 LTCS F OVARIAN CYSTECTOMY 11/22/2014 benign OOPHORECTOMY PARTIAL/TOTAL UNI/BI 11/22/2014 Ovarian torsion - LSO performed SALPINGECTOMY Bilateral 11/03/2021 ALLERGIES Patient has no known allergies. MEDICATIONS cetirizine (ZYRTEC) 10 mg tablet Take 10 mg by mouth once daily. vitamin B complex (B COMPLEX 1 ORAL) Take by mouth. MAGNESIUM ORAL Take by mouth. pyridoxine, vitamin B6, (VITAMIN B-6) 25 mg tablet Take 25 mg by mouth four times daily. (Patient not taking: Reported on 06/23/2021) multivitamin (CLASSIC ) 28 mg iron- 800 mcg tab(s) Take 1 tablet by mouth once daily. (Patient not taking: Reported on 07/15/2022) loratadine (CLARITIN ORAL) Take by mouth as needed. (Patient not taking: Reported on 02/20/2024) FAMILY HISTORY Problem Relation Age of Onset Thyroid Mother Depression Mother Hypertension Father No Known Problems Sister Arthritis Maternal Grandmother Breast Cancer Maternal Grandmother Alcohol/Drug Maternal Grandfather ETOH Macular Degen Paternal Grandmother Heart Paternal Grandfather [place] No Known Problems Son Social History Tobacco Use Smoking status: Never Smokeless tobacco: Never Vaping Use Vaping status: Never Used Substance Use Topics Alcohol use: Not Currently Drug use: No Objective Physical Exam Vitals and nursing note reviewed. Constitutional: Appearance: Normal appearance. HENT: Right Ear: Tympanic membrane, ear canal and external ear normal. Left Ear: Tympanic membrane, ear canal and external ear normal. Nose: Nose normal. Mouth/Throat: Pharynx: Uvula midline. No oropharyngeal exudate or posterior oropharyngeal erythema. Cardiovascular: Rate and Rhythm: Normal rate and regular rhythm. Heart sounds: Normal heart sounds. Pulmonary: Effort: Pulmonary effort is normal. No respiratory distress. Breath sounds: Examination of the left-upper field reveals rales. Examination of the left-lower field reveals rales. Rales present. No wheezing. Musculoskeletal: Cervical back: Neck supple. Lymphadenopathy: Cervical: No cervical adenopathy. Skin: General: Skin is warm and dry. Findings: No erythema or rash. Neurological: Mental Status: She is alert. ASSESSMENT/PLAN: 1. Lower respiratory tract infection - ICD9: 519.8, ICD10: J22 (primary diagnosis) - suspect left lung pneumonia. - She will return tomorrow for chest xray. - DOXYCYCLINE MONOHYDRATE 100 MG TABLET - offered COVID/flu testing-patient declined. 2. Wheezing - ICD9: 786.07, ICD10: R06.2 - ALBUTEROL SULFATE HFA 90 MCG/ACTUATION AEROSOL INHALER - Follow-up with your PCP in 3-5 days if symptoms have not improved or sooner if symptoms worsen - Discussed red flags and need for immediate medical evaluation if any occur. - Discussed supportive care treatment with fluids, rest and analgesia. - Discussed expected course of illness Claudia Tony APRN.[facility] 02-20-2024 History of Presen t illness Narrative Subjective Cough Associated symptoms include chills, headaches, myalgias, shortness of breath and wheezing. Pertinent negatives include no chest pain. Valentino Frias is a 33 year old female who presents with 4 days of fever, chills, body aches, headache, and cough. She is having some wheezing and shortness of breath. Her son was recently diagnosed with pneumonia. She has been taking ibuprofen for fever. Review of Systems Constitutional: Positive for chills, fever and malaise/fatigue. HENT: Negative. Respiratory: Positive for cough, shortness of breath and wheezing. Negative for sputum production. Cardiovascular: Negative for chest pain. Gastrointestinal: Negative for diarrhea, nausea and vomiting. Musculoskeletal: Positive for myalgias. Neurological: Positive for headaches. BP 128/91 Pulse 101 Temp 37.8 C (100.1 F) Resp 18 Wt 123.8 kg (272 lb 14.9 oz) LMP 02/03/2021 (Exact Date) SpO2 99% BMI 37.54 kg/m PAST MEDICAL HISTORY Diagnosis Date Complication of anesthesia Vomiting that started 12 hours after surgery Kidney stone 2019 Ovarian torsion 2014 LEFT OVARY hypertension PAST SURGICAL HISTORY Procedure Laterality Date APPENDECTOMY DELIVERY ONLY 09/09/2018 C/S low transverse DELIVERY ONLY 11/03/2021 LTCS F OVARIAN CYSTECTOMY 11/22/2014 benign OOPHORECTOMY PARTIAL/TOTAL UNI/BI 11/22/2014 Ovarian torsion - LSO performed SALPINGECTOMY Bilateral 11/03/2021 ALLERGIES Patient has no known allergies. MEDICATIONS cetirizine (ZYRTEC) 10 mg tablet Take 10 mg by mouth once daily. vitamin B complex (B COMPLEX 1 ORAL) Take by mouth. MAGNESIUM ORAL Take by mouth. pyridoxine, vitamin B6, (VITAMIN B-6) 25 mg tablet Take 25 mg by mouth four times daily. (Patient not taking: Reported on 06/23/2021) multivitamin (CLASSIC ) 28 mg iron- 800 mcg tab(s) Take 1 tablet by mouth once daily. (Patient not taking: Reported on 07/15/2022) loratadine (CLARITIN ORAL) Take by mouth as needed. (Patient not taking: Reported on 02/20/2024) FAMILY HISTORY Problem Relation Age of Onset Thyroid Mother Depression Mother Hypertension Father No Known Problems Sister Arthritis Maternal Grandmother Breast Cancer Maternal Grandmother Alcohol/Drug Maternal Grandfather ETOH Macular Degen Paternal Grandmother Heart Paternal Grandfather [place] No Known Problems Son Social History Tobacco Use Smoking status: Never Smokeless tobacco: Never Vaping Use Vaping status: Never Used Substance Use Topics Alcohol use: Not Currently Drug use: No Objective Physical Exam Vitals and nursing note reviewed. Constitutional: Appearance: Normal appearance. HENT: Right Ear: Tympanic membrane, ear canal and external ear normal. Left Ear: Tympanic membrane, ear canal and external ear normal. Nose: Nose normal. Mouth/Throat: Pharynx: Uvula midline. No oropharyngeal exudate or posterior oropharyngeal erythema. Cardiovascular: Rate and Rhythm: Normal rate and regular rhythm. Heart sounds: Normal heart sounds. Pulmonary: Effort: Pulmonary effort is normal. No respiratory distress. Breath sounds: Examination of the left-upper field reveals rales. Examination of the left-lower field reveals rales. Rales present. No wheezing. Musculoskeletal: Cervical back: Neck supple. Lymphadenopathy: Cervical: No cervical adenopathy. Skin: General: Skin is warm and dry. Findings: No erythema or rash. Neurological: Mental Status: She is alert. ASSESSMENT/PLAN: 1. Lower respiratory tract infection - ICD9: 519.8, ICD10: J22 (primary diagnosis) - suspect left lung pneumonia. - She will return tomorrow for chest xray. - DOXYCYCLINE MONOHYDRATE 100 MG TABLET - offered COVID/flu testing-patient declined. 2. Wheezing - ICD9: 786.07, ICD10: R06.2 - ALBUTEROL SULFATE HFA 90 MCG/ACTUATION AEROSOL INHALER - Follow-up with your PCP in 3-5 days if symptoms have not improved or sooner if symptoms worsen - Discussed red flags and need for immediate medical evaluation if any occur. - Discussed supportive care treatment with fluids, rest and analgesia. - Discussed expected course of illness Claudia Tony APRN.PORTAL ADMINISTRATOR documented in this encounter [facility] 06-16-2023 Note HNO ID: [id number] Author: PERICO HSAH PA Service: ? Author Type: Physician Hog Cooler Type: Progress Notes Filed: 06/16/2023 11:54 Note Text: This note was created using NoteWriter. Subjective Valentino Frias is a 32 year old female. HPI 32-year-old female presents for body aches, fever, sore throat. Patient states sore throat started yesterday. She had a fever last night of 102 ?F. She has had a body aches. No cough, congestion. No known exposure to strep. No vomiting. Still able to eat and drink. PAST MEDICAL HISTORY Diagnosis Date Complication of anesthesia Vomiting that started 12 hours after surgery Kidney stone 2019 Ovarian torsion 2014 LEFT OVARY hypertension PAST SURGICAL HISTORY Procedure Laterality Date APPENDECTOMY DELIVERY ONLY 09/09/2018 C/S low transverse DELIVERY ONLY 11/03/2021 LTCS F OVARIAN CYSTECTOMY 11/22/2014 benign OOPHORECTOMY PARTIAL/TOTAL UNI/BI 11/22/2014 Ovarian torsion - LSO performed SALPINGECTOMY Bilateral 11/03/2021 ALLERGIES Patient has no known allergies. MEDICATIONS loratadine (CLARITIN ORAL) Take by mouth as needed. pyridoxine, vitamin B6, (VITAMIN B-6) 25 mg tablet Take 25 mg by mouth four times daily. (Patient not taking: Reported on 06/23/2021 ) multivitamin (CLASSIC ) 28 mg iron- 800 mcg tab(s) Take 1 tablet by mouth once daily. (Patient not taking: Reported on 07/15/2022) FAMILY HISTORY Problem Relation Age of Onset Thyroid Mother Depression Mother Hypertension Father No Known Problems Sister Arthritis Maternal Grandmother Breast Cancer Maternal Grandmother Alcohol/Drug Maternal Grandfather ETOH Macular Degen Paternal Grandmother Heart Paternal Grandfather [place] No Known Problems Son Social History Tobacco Use Smoking status: Never Smokeless tobacco: Never Vaping Use Vaping Use: Never used Substance Use Topics Alcohol use: Not Currently Drug use: No Review of Systems Constitutional: Positive for fever. Negative for chills. HENT: Positive for sore throat. Negative for congestion and ear pain. Respiratory: Negative for cough and shortness of breath. Cardiovascular: Negative for chest pain. Gastrointestinal: Negative for diarrhea and vomiting. Musculoskeletal: Positive for myalgias. Objective BP 110/78 Pulse 115 Temp 36.5 ?C (97.7 ?F) Resp 21 Wt 122 kg (269 lb) LMP 02/03/2021 (Exact Date) SpO2 98% BMI 36.99 kg/m? Physical Exam Vitals and nursing note reviewed. Constitutional: General: She is not in acute distress. Appearance: Normal appearance. She is not toxic-appearing. HENT: Right Ear: Tympanic membrane and ear canal normal. Left Ear: Tympanic membrane and ear canal normal. Nose: Nose normal. Mouth/Throat: Mouth: Mucous membranes are moist. Pharynx: Uvula midline. Posterior oropharyngeal erythema present. No oropharyngeal exudate. Tonsils: Tonsillar exudate present. No tonsillar abscesses. 2+ on the right. 2+ on the left. Eyes: Conjunctiva/sclera: Conjunctivae normal. Cardiovascular: Rate and Rhythm: Normal rate and regular rhythm. Pulmonary: Effort: Pulmonary effort is normal. Breath sounds: Normal breath sounds. Lymphadenopathy: Cervical: Cervical adenopathy present. Neurological: Mental Status: She is alert. Assessment and Plan ASSESSMENT/PLAN: 1. Strep pharyngitis - ICD9: 034.0, ICD10: J02.0 (primary diagnosis) - suspect strep - Group A strep molecular testing positive - Amoxicillin for 10 days. - Discussed supportive care treatment with fluids, rest and analgesia. - Contagious dz precautions discussed- including considered contagious until on antibiotics for 24 hours 2. Sore throat - ICD9: 462, ICD10: J02.9 - STREP A MOLECULAR (POC) Diagnosis and treatment plan were discussed and questions were answered to the patient's satisfaction. Pt acknowledged understanding of concepts and follow up plan. Specific signs and symptoms that would indicate the need for higher level of care were discussed in detail warranting prompt ER evaluation. SIDDHARTHA Hernandez [facility] 07-15-2022 Instructions Cherie Spicer APRN.[facility] - 07/15/2022 3:14 PM EST Images from the original note were not included. Adult Sinusitis Patient Education What is Sinusitis? Sinusitis [[id number]] is inflammation of the sinuses or swelling of the lining of the sinus cavity or nose. During an infection the sinuses become blocked with fluid causing swelling of the lining of the sinuses. Symptoms: (viral and bacterial infections) Stuffy nose Runny nose Postnasal drip Fever Toothache Headache Tiredness Cough Sore throat Face and head pressure and or pain Common causes: 98% of sinus infections are viral caused by viruses. Risk Factors of Sinusitis Include: Allergies, air pollution, indoor humidity and outdoor temperature changes, andstructural changes in the nose may contribute to sinus pain, pressure and congestion. When to get help? Temperature greater than 100.4 F Symptoms lasting more than 10 days or worsening symptoms greater than 7-10 days. If you do not improve or worsen after a course of antibiotics, you should be re-examined. Diagnosis and Treatment: Your healthcare provider will ask a number of questions about your symptoms and how long they have occurred. If symptoms of sinusitis persist greater than 10 days, it is possible you have a bacterial sinus infection and an antibiotic is prescribed. If it is viral, antibiotics will not help. You may be instructed to take [id number] medications for symptoms. including fever reducers acetaminophen or ibuprofen, nasal saline spray, cough and cold preparations and decongestants as prescribed by the physician, nurse practitioner or physician volleyball assistant coach. Self-Care and Prevention: Rest Fluids for hydration Good hand washing Humidifier Avoid smoking and exposure to second hand smoke Avoid sick contacts documented in this encounter [facility] 07-15-2022 History of Presen t illness Narrative Radiology Service Progress Note PATIENT NAME: Valentino Frias DATE OF SERVICE: July 15, 2022 TIME: 2:56 PM PATIENT IDENTITY VERIFICATION COMPLETED USING TWO (2) IDENTIFIERS: Name and Date of confirmed by patient verbally. FALL SCREENING: Has the patient had 2 falls in the last year or 1 fall with injury or currently using an Ambulatory Assistive Device (Walker, Cane, Wheelchair, Crutches, etc.)? No PATIENT GENDER DATA: Female. status: : No status: NO. PATIENT RELEVANT IMPLANT DATA REVIEWED: Not Applicable RADIOLOGY DEPARTMENT: General X-ray: Exam(s) Completed: Chest X-Ray PERIPHERAL IV DATA: Not applicable SIGNED BY: RT Warren(R) July 15, 2022 2:56 PM documented in this encounter [facility] 07-15-2022 History of Presen t illness Narrative This note was created using NoteWriter. Subjective Vlaentino Frias is a 31 year old female. 31 year old female with no significant PMH presents with complaints of illness. Acute onset 10 days ago +cough +runny nose + congestion +headache + post nasal drip Denies SOB or dyspnea Denies abdominal pain Denies N/V/D Denies skin rash or lesions. States her daughter is home ill She endorses that she felt better 2 days ago, But then symptoms returned and worse last night. Has used Sudafed and Tylenol States cough is worse at night. Denies tobacco usage. The history is provided by the patient. No language therapist was used. Nasal Congestion This is a new problem. The current episode started 1 to 4 weeks ago. The problem has been gradually worsening since onset. There has been no fever. Her pain is at a severity of 5/10. The pain is moderate. Associated symptoms include congestion, coughing, headaches, sinus pressure and a sore throat. Pertinent negatives include no chills, diaphoresis, ear pain, hoarse voice, neck pain, shortness of breath, sneezing or swollen glands. Treatments tried: Sudafed and Tylenol. The treatment provided mild relief. PAST MEDICAL HISTORY Diagnosis Date Complication of anesthesia Vomiting that started 12 hours after surgery Kidney stone 2019 Ovarian torsion 2014 LEFT OVARY hypertension PAST SURGICAL HISTORY Procedure Laterality Date APPENDECTOMY DELIVERY ONLY 09/09/2018 C/S low transverse DELIVERY ONLY 11/03/2021 LTCS F OVARIAN CYSTECTOMY 11/22/2014 benign OOPHORECTOMY PARTIAL/TOTAL UNI/BI 11/22/2014 Ovarian torsion - LSO performed SALPINGECTOMY Bilateral 11/03/2021 ALLERGIES Patient has no known allergies. MEDICATIONS loratadine (CLARITIN ORAL) Take by mouth as needed. amoxicillin-clavulanic acid (AUGMENTIN) 875-125 mg per tablet Take 1 tablet by mouth twice daily for 5 days. pyridoxine, vitamin B6, (VITAMIN B-6) 25 mg tablet Take 25 mg by mouth four times daily. (Patient not taking: Reported on 06/23/2021 ) multivitamin (CLASSIC ) 28 mg iron- 800 mcg tab(s) Take 1 tablet by mouth once daily. (Patient not taking: Reported on 07/15/2022) FAMILY HISTORY Problem Relation Age of Onset Thyroid Mother Depression Mother Hypertension Father No Known Problems Sister Arthritis Maternal Grandmother Breast Cancer Maternal Grandmother Alcohol/Drug Maternal Grandfather ETOH Macular Degen Paternal Grandmother Heart Paternal Grandfather [place] No Known Problems Son Social History Tobacco Use Smoking status: Never Smokeless tobacco: Never Vaping Use Vaping Use: Never used Substance Use Topics Alcohol use: Not Currently Drug use: No Review of Systems Constitutional: Negative for chills and diaphoresis. HENT: Positive for congestion, postnasal drip, rhinorrhea, sinus pressure, sinus pain and sore throat. Negative for ear pain, hoarse voice and sneezing. Eyes: Negative for photophobia, pain, discharge, redness, itching and visual disturbance. Respiratory: Positive for cough. Negative for apnea, choking, chest tightness and shortness of breath. Cardiovascular: Negative for chest pain, palpitations and leg swelling. Gastrointestinal: Negative for abdominal pain, diarrhea, nausea and vomiting. Musculoskeletal: Negative for arthralgias, back pain and neck pain. Skin: Negative for color change, pallor, rash and wound. Allergic/Immunologic: Negative for environmental allergies, food allergies and immunocompromised state. Neurological: Positive for headaches. Negative for dizziness, facial asymmetry, light-headedness and numbness. Hematological: Negative for adenopathy. Does not bruise/bleed easily. Psychiatric/Behavioral: Negative for agitation and behavioral problems. Objective BP 136/86 Pulse 110 Temp 36.9 C (98.4 F) Resp 16 Wt 120.7 kg (266 lb) LMP 02/03/2021 (Exact Date) SpO2 98% BMI 36.58 kg/m Physical Exam Vitals and nursing note reviewed. Constitutional: General: She is not in acute distress. Appearance: Normal appearance. She is obese. She is not ill-appearing, toxic-appearing or diaphoretic. HENT: Head: Normocephalic and atraumatic. Right Ear: Ear canal and external ear normal. Left Ear: Ear canal and external ear normal. Ears: Comments: Bilateral TMs erythema +ethmoid and maxillary sinus TTP Nose: Nose normal. No congestion or rhinorrhea. Mouth/Throat: Mouth: Mucous membranes are moist. Pharynx: No oropharyngeal exudate or posterior oropharyngeal erythema. Eyes: General: Right eye: No discharge. Left eye: No discharge. Extraocular Movements: Extraocular movements intact. Conjunctiva/sclera: Conjunctivae normal. Pupils: Pupils are equal, round, and reactive to light. Cardiovascular: Rate and Rhythm: Normal rate and regular rhythm. Pulses: Normal pulses. Heart sounds: Normal heart sounds. No murmur heard. No friction rub. Pulmonary: Effort: Pulmonary effort is normal. No respiratory distress. Breath sounds: No stridor. Rhonchi (left mid posterior lobe) present. No wheezing or rales. Chest: Chest wall: No tenderness. Abdominal: General: Abdomen is flat. There is no distension. Palpations: Abdomen is soft. There is no mass. Tenderness: There is no abdominal tenderness. There is no right CVA tenderness, left CVA tenderness, guarding or rebound. Hernia: No hernia is present. Musculoskeletal: General: No swelling, tenderness, deformity or signs of injury. Normal range of motion. Cervical back: Normal range of motion and neck supple. No rigidity. Right lower leg: No edema. Left lower leg: No edema. Lymphadenopathy: Cervical: No cervical adenopathy. Skin: General: Skin is warm and dry. Capillary Refill: Capillary refill takes less than 2 seconds. Coloration: Skin is not jaundiced or pale. Findings: No bruising, erythema, lesion or rash. Neurological: General: No focal deficit present. Mental Status: She is alert and oriented to person, place, and time. Cranial Nerves: No cranial nerve deficit. Sensory: No sensory deficit. Motor: No weakness. Coordination: Coordination normal. Gait: Gait normal. Psychiatric: Mood and Affect: Mood normal. Behavior: Behavior normal. Thought Content: Thought content normal. Judgment: Judgment normal. Assessment and Plan ASSESSMENT/PLAN: 1. Acute cough - ICD9: 786.2, ICD10: R05.1 (primary diagnosis) X 10 days Worsening over last 24 hours Rhonchi left mid lobe - XR CHEST 2V FRONTAL/LAT-negative for acute process. Supportive measures 2. Rhinosinusitis - ICD9: 473.9, ICD10: J31.0, J32.9 - Will begin treatment with as per antibiotic as written, see orders - The patient should also be given OTC cough and cold meds as needed, warm salt water gargles, throat lozenges and/or OTC throat spray as needed, and nasal saline gtts and suction prn for the first 5-7 days of treatment. - Supportive care with plenty of fluids, rest, and analgesia prn. - Follow up in 3-5 days if symptoms persist or worsen. Cherie Spicer APRN.JOSE ALBERTO documented in this encounter [facility] 11-17-2021 History of Presen t illness Narrative EARLY VISIT Valentino Frias is a 31 year old here for 2 week visit. Delivery Summary: cs and salpingectomy ROS: General: Denies any fever or chills Hypertension Screening: Headache? No. Visual Changes? No Mood: normal Depression: denies symptoms of depression. OB Depression and Anxiety Screening- This Encounter (since 11/16/2021) Over the past 2 weeks have you felt down, depressed, or hopeless? Negative Over the past two weeks, have you felt little interest or pleasure in doing things? Negative Feeling nervous, anxious or on edge 0-Not at all Not being able to stop or control worrying 0-Not al all Anxiety Pre-Screening Total (If >/= 3 additional questions will be reviewed) 0 Feeding: Breast feeding problems: None Bladder: No dysuria, gross hematuria, urinary frequency, urinary urgency, or incontinence Bowel symptoms: Negative for abdominal discomfort, blood in stools or black stools and change in bowel habits Abdomen: She reports no incisional redness, tenderness, erythema Bleeding: light flow Bottom and Perineum: No issues Sleep: no sleep concerns, feels rested [place] since delivery: Not resumed Emotional support: Yes Exercise: N/A Other issues: None PHYSICAL EXAMINATION: BP 120/72 Wt 261 lb (118.4 kg) LMP 02/03/2021 (Exact Date) Yes BMI 35.89 kg/m General: pleasant,female in no apparent distress, A&O x 3. Skin warm and intact. Breast: Deferred Abdomen: soft and non-tender /Incision: No incisional redness, swelling, or drainage Pelvic: Deferred Bimanual: Deferred ASSESSMENT AND PLAN: 1. 31 year old status post CS with normal course. 2. Contraception plan: tubal ligation. Reinforced 6-week pelvic rest. Encouraged condom usage should patient deviate. 3. Education: resources provided - see MA/RN note 4. Follow up: Return to Clinic for 6 week visit and as needed Medical Decision Making Sandra Silver MD documented in this encounter [facility] 11-03-2021 History of Presen t illness Narrative Patient delivered via by Dr. Mcneill on 11/03/21 at [facility]. See OB history. Trupti Cary RN documented in this encounter [facility] 10-27-2021 History of Presen t illness Narrative Pre-Op History and Physical HPI: The patient is a 31 year old female presenting for pre-operative visit. She is scheduled for and salpignectomy for repeat elective cs and desires sterilization on 11/03/21. Procedure discussed along with risks, benefits and complications. Other alternatives discussed for management. Consent form signed? Yes. PAST MEDICAL HISTORY Diagnosis Date Complication of anesthesia Vomiting that started 12 hours after surgery Kidney stone 2019 Ovarian torsion 2014 LEFT OVARY hypertension PAST SURGICAL HISTORY Procedure Laterality Date APPENDECTOMY DELIVERY ONLY 09/09/2018 C/S low transverse F OVARIAN CYSTECTOMY 11/22/14 benign OOPHORECTOMY PARTIAL/TOTAL UNI/BI 11/22/14 Ovarian torsion - LSO performed Current Outpatient Medications Medication Sig Dispense Refill pyridoxine, vitamin B6, (VITAMIN B-6) 25 mg tablet Take 25 mg by mouth four times daily. (Patient not taking: Reported on 06/23/2021 ) multivitamin (CLASSIC ) 28 mg iron- 800 mcg tab(s) Take 1 tablet by mouth once daily. loratadine (CLARITIN ORAL) Take by mouth as needed. No current facility-administered medications for this visit. ALLERGIES: Patient has no known allergies. PERSONAL HISTORY: Social History Tobacco Use Smoking status: Never Smoker Smokeless tobacco: Never Used Vaping Use Vaping Use: Never used Substance Use Topics Alcohol use: Not Currently Drug use: No FAMILY HISTORY: FAMILY HISTORY Problem Relation Age of Onset Thyroid Mother Depression Mother Hypertension Father No Known Problems Sister Arthritis Maternal Grandmother Breast Cancer Maternal Grandmother Alcohol/Drug Maternal Grandfather ETOH Macular Degen Paternal Grandmother Heart Paternal Grandfather [place] No Known Problems Son REVIEW OF SYMPTOMS: negative except as noted above PHYSICAL EXAMINATION: VITALS: Blood pressure 120/74, weight 287 lb (130.2 kg), last menstrual period 02/03/2021. GENERAL: The patient is well nourished, well hydrated in no acute distress. , The patient is oriented to time, place, and person. NECK: full range of motion ABD: soft, gravid, non tender IMPRESSION: 31yo scheduled elective repeat cs at 39 weeks and salpingectomy PLAN: R/cs and salpingectomy Pt has been counseled on risks/benefits and alternatives of surgery including but not limited to anesthesia, bleeding, infection, injury to pelvic structures including bowel, bladder, ureters and vessels. Pt wishes to proceed with surgery at this time. Understands salpingectomy is permanent and risk of regret reviewed- declines LARC Pre and post op instructions reviewed. I have reviewed and updated past medical and surgical history, medications and allergies Sandra Mcneill MD documented in this encounter [facility] 10-27-2021 Miscellaneous Notes DM- Pt doing well today. Denies Vaginal Bleeding, Leaking fluid, or contractions. Pt reports good movement. Cs pre op done today. Kick counts and labor reviewed. Sandra Silver MD documented in this encounter [facility] 10-27-2021 Instructions Shannon Montana Ma - 10/27/2021 4:18 PM EDT SEQUENTIAL SCREENINGS The [facility] offers sequential screenings for women who are interested in screenings for chromosomal abnormalities and certain defects during a . The sequential screen combines ultrasound and blood tests to determine the risk of chromosomal abnormalities, including Down's Syndrome (Trisomy 21) and Trisomy 18, as well as open neural tube defects including spina bifida. Ultrasound examination is performed between 11 weeks and 13 weeks gestational age. Blood tests are drawn after the ultrasound and again later in the between 15 and 21 weeks gestational age. Please let your physician know if you are interested in this testing. It will require an appointment with our registered veterinary technician. This is not an ultrasound performed by a physician in our office during a routine visit. SIGNS AND SYMPTOMS OF LABOR 1. Contractions every 10 minutes or more often 2. Clear, pink, or brownish fluid (water) leaking from vagina 3. Feeling that baby is pushing down, pressure 4. Low, dull backache 5. Cramps that feel like a period 6. Cramps with or without diarrhea If you notice any of the above symptoms, contact our office at [phone] and ask to speak with a nurse. After hours, you can call doctors registry at [phone] OR call [facility] at [phone] and ask to have the doctor senior front end developer paged. If you consider this an emergency, dial 9-1-1 or go to your nearest emergency department. NEED HELP? Are you dealing with a violent or abusive relationship? Are you a victim of rape or sexual assult? Call [facility] ([place]) 24 hour Crisis Hotline: 809.228.3827 or 402-198-5467. MANUAL Your Guide to a Healthy manual is now on-line. Visit [email or web address] to download your free copy documented in this encounter [facility] 10-13-2021 Miscellaneous Notes DM- Pt doing well today. Denies Vaginal Bleeding, Leaking fluid, or contractions. Pt reports good movement. Kick counts reviewed. GBS done today. Vertex on ultrasound. MARVA appears wnl. RTO one week. Sandra Silver MD documented in this encounter [facility] 10-13-2021 Instructions Shannon Montana Ma - 10/13/2021 2:46 PM EDT SEQUENTIAL SCREENINGS The [facility] offers sequential screenings for women who are interested in screenings for chromosomal abnormalities and certain defects during a . The sequential screen combines ultrasound and blood tests to determine the risk of chromosomal abnormalities, including Down's Syndrome (Trisomy 21) and Trisomy 18, as well as open neural tube defects including spina bifida. Ultrasound examination is performed between 11 weeks and 13 weeks gestational age. Blood tests are drawn after the ultrasound and again later in the between 15 and 21 weeks gestational age. Please let your physician know if you are interested in this testing. It will require an appointment with our registered veterinary technician. This is not an ultrasound performed by a physician in our office during a routine visit. SIGNS AND SYMPTOMS OF LABOR 1. Contractions every 10 minutes or more often 2. Clear, pink, or brownish fluid (water) leaking from vagina 3. Feeling that baby is pushing down, pressure 4. Low, dull backache 5. Cramps that feel like a period 6. Cramps with or without diarrhea If you notice any of the above symptoms, contact our office at [phone] and ask to speak with a nurse. After hours, you can call doctors registry at [phone] OR call [facility] at [phone] and ask to have the doctor senior front end developer paged. If you consider this an emergency, dial 6- or go to your nearest emergency department. NEED HELP? Are you dealing with a violent or abusive relationship? Are you a victim of rape or sexual assult? Call [facility] ([place]) 24 hour Crisis Hotline: 679.936.3242 or 855-319-2458. MANUAL Your Guide to a Healthy manual is now on-line. Visit [email or web address] to download your free copy documented in this encounter [facility] 09-29-2021 Miscellaneous Notes DM- Pt doing well today. Denies Vaginal Bleeding, Leaking fluid, or contractions. Pt reports good movement. Growth us reviewed 29%. Cs scheduled. Kick counts reviewed. RTO 2 wks. Sandra Silver MD documented in this encounter [facility] 09-29-2021 Instructions Shannon Montana Ma - 09/29/2021 10:05 AM EDT SEQUENTIAL SCREENINGS The [facility] offers sequential screenings for women who are interested in screenings for chromosomal abnormalities and certain defects during a . The sequential screen combines ultrasound and blood tests to determine the risk of chromosomal abnormalities, including Down's Syndrome (Trisomy 21) and Trisomy 18, as well as open neural tube defects including spina bifida. Ultrasound examination is performed between 11 weeks and 13 weeks gestational age. Blood tests are drawn after the ultrasound and again later in the between 15 and 21 weeks gestational age. Please let your physician know if you are interested in this testing. It will require an appointment with our registered veterinary technician. This is not an ultrasound performed by a physician in our office during a routine visit. SIGNS AND SYMPTOMS OF LABOR 1. Contractions every 10 minutes or more often 2. Clear, pink, or brownish fluid (water) leaking from vagina 3. Feeling that baby is pushing down, pressure 4. Low, dull backache 5. Cramps that feel like a period 6. Cramps with or without diarrhea If you notice any of the above symptoms, contact our office at [phone] and ask to speak with a nurse. After hours, you can call doctors registry at [phone] OR call [facility] at [phone] and ask to have the doctor senior front end developer paged. If you consider this an emergency, dial 6-1-7 or go to your nearest emergency department. NEED HELP? Are you dealing with a violent or abusive relationship? Are you a victim of rape or sexual assult? Call [facility] 24 hour Crisis Hotline: 785.197.7882 or 008-396-0934. MANUAL Your Guide to a Healthy manual is now on-line. Visit [email or web address] to download your free copy documented in this encounter [facility] 09-15-2021 Miscellaneous Notes DM- Pt doing well today. Denies Vaginal Bleeding, Leaking fluid, or contractions. Pt reports good movement. Growth us today- pending. Kick counts reviewed. RTO 2 wks. Sandra Silver MD documented in this encounter [facility] 09-15-2021 Instructions Shannon Montana Ma - 09/15/2021 9:34 AM EDT SEQUENTIAL SCREENINGS The [facility] offers sequential screenings for women who are interested in screenings for chromosomal abnormalities and certain defects during a . The sequential screen combines ultrasound and blood tests to determine the risk of chromosomal abnormalities, including Down's Syndrome (Trisomy 21) and Trisomy 18, as well as open neural tube defects including spina bifida. Ultrasound examination is performed between 11 weeks and 13 weeks gestational age. Blood tests are drawn after the ultrasound and again later in the between 15 and 21 weeks gestational age. Please let your physician know if you are interested in this testing. It will require an appointment with our registered veterinary technician. This is not an ultrasound performed by a physician in our office during a routine visit. SIGNS AND SYMPTOMS OF LABOR 1. Contractions every 10 minutes or more often 2. Clear, pink, or brownish fluid (water) leaking from vagina 3. Feeling that baby is pushing down, pressure 4. Low, dull backache 5. Cramps that feel like a period 6. Cramps with or without diarrhea If you notice any of the above symptoms, contact our office at [phone] and ask to speak with a nurse. After hours, you can call doctors registry at [phone] OR call [facility] at [phone] and ask to have the doctor senior front end developer paged. If you consider this an emergency, dial 9-1-1 or go to your nearest emergency department. NEED HELP? Are you dealing with a violent or abusive relationship? Are you a victim of rape or sexual assult? Call [facility] ([place]) 24 hour Crisis Hotline: 472.619.4454 or 463-164-8778. MANUAL Your Guide to a Healthy manual is now on-line. Visit [email or web address] to download your free copy documented in this encounter [facility] 09-01-2021 Miscellaneous Notes SW- Over weekend had epigastric pain after lunch followed by N/V. This has improved. No REAL, vision changes, epigastric pain, RUQ pain today. No regular ctx, vb, lof. Good FM. Abd exam non acute. Reviewed 28 wk labs. Discussed importance of balanced diet and routine exercise. Discussed reasons to call. RTO 2 wks for growth US and visit. Mabel Richardson DO documented in this encounter [facility] 09-01-2021 Instructions Connie Hankins MA - 09/01/2021 11:20 AM EDT SEQUENTIAL SCREENINGS [facility] offers sequential screenings for women who are interested in screenings for chromosomal abnormalities and certain defects during a . The sequential screen combines ultrasound and blood tests to determine the risk of chromosomal abnormalities, including Down's Syndrome (Trisomy 21) and Trisomy 18, as well as open neural tube defects including spina bifida. Ultrasound examination is performed between 11 weeks and 13 weeks gestational age. Blood tests are drawn after the ultrasound and again later in the between 15 and 21 weeks gestational age. Please let your physician know if you are interested in this testing. It will require an appointment with our registered veterinary technician. This is not an ultrasound performed by a physician in our office during a routine visit. SIGNS AND SYMPTOMS OF LABOR 1. Contractions every 10 minutes or more often 2. Clear, pink, or brownish fluid (water) leaking from vagina 3. Feeling that baby is pushing down, pressure 4. Low, dull backache 5. Cramps that feel like a period 6. Cramps with or without diarrhea If you notice any of the above symptoms, contact our office at [phone] and ask to speak with a nurse. After hours, you can call doctors registry at [phone] OR call [facility] at [phone] and ask to have the doctor senior front end developer paged. If you consider this an emergency, dial 01-22-0 or go to your nearest emergency department. NEED HELP? Are you dealing with a violent or abusive relationship? Are you a victim of rape or sexual assult? Call [facility] ([facility] 24 hour Crisis Hotline: 100.206.1762 or 259-040-1005. MANUAL Your Guide to a Healthy manual is now on-line. Visit [email or web address] to download your free copy documented in this encounter [facility] 08-18-2021 Miscellaneous Notes DM- Pt doing well today. Denies Vaginal Bleeding, Leaking fluid, or contractions. Pt reports good movement. Tdap today. 28 week labs today. CS with Salpingectomy scheduled. Declines LARC- signed. RTO 2 week. Kick counts reviewed. Sandra Silver MD documented in this encounter [facility] 08-18-2021 History of Presen t illness Narrative Patient identified by name and date of . Valentino Frias presents today for a vaccination of Tdap. Patient denies an allergy to latex: yes Patient denies a severe (life-threatening) allergy to a previous dose of Tdap, DTP, DTaP, DT or Td vaccine. Yes Patient denies history of epilepsy or neurological problems: Yes Patient is afebrile and denies being moderately or severely ill: Yes Patient denies history of Guillain-[place] Syndrome (a severe paralytic illness): Yes Tdap Adacel injection was given without incident. See immunizations for details of immunizations administered today. VIS sheet provided: Yes Provider Charito was present in office at time of injection. Shannon Montana Ma documented in this encounter [facility] 08-18-2021 Instructions Shannon Montana Ma - 08/18/2021 11:58 AM EDT SEQUENTIAL SCREENINGS The [facility] offers sequential screenings for women who are interested in screenings for chromosomal abnormalities and certain defects during a . The sequential screen combines ultrasound and blood tests to determine the risk of chromosomal abnormalities, including Down's Syndrome (Trisomy 21) and Trisomy 18, as well as open neural tube defects including spina bifida. Ultrasound examination is performed between 11 weeks and 13 weeks gestational age. Blood tests are drawn after the ultrasound and again later in the between 15 and 21 weeks gestational age. Please let your physician know if you are interested in this testing. It will require an appointment with our registered veterinary technician. This is not an ultrasound performed by a physician in our office during a routine visit. SIGNS AND SYMPTOMS OF LABOR 1. Contractions every 10 minutes or more often 2. Clear, pink, or brownish fluid (water) leaking from vagina 3. Feeling that baby is pushing down, pressure 4. Low, dull backache 5. Cramps that feel like a period 6. Cramps with or without diarrhea If you notice any of the above symptoms, contact our office at [phone] and ask to speak with a nurse. After hours, you can call [facility] registry at [phone] OR call [facility] at [phone] and ask to have the doctor senior front end developer paged. If you consider this an emergency, dial 3-1-6 or go to your nearest emergency department. NEED HELP? Are you dealing with a violent or abusive relationship? Are you a victim of rape or sexual assult? Call [facility] ([place]) 24 hour Crisis Hotline: 558.643.6464 or 626-860-3706. MANUAL Your Guide to a Healthy manual is now on-line. Visit [facility] [email or web address] to download your free copy documented in this encounter [facility] 07-20-2018 History of Past i llness Narrative Problem Noted Date Resolved Date Uterine size-date discrepancy, third trimester 0 07/20/2018 10/19/2018 Overview: 08/26/2018 39 wk US- EFW = 4376 grams at > 97 th%. SW EFW 96% and AFV is 22 cm at 34 weeks, consider repeat US at 39 weeks if not delivered. Bertha Orr MD Counseling for control regarding intrauterine device (IUD) 06/03/2018 03/28/2021 Overview: 06/03/2017 Desires immediate placement of Mirena IUD. SW Nausea and vomiting in 01/13/2018 07/20/2018 Overview: 01/13/2018 Patient is complaining of occasional nausea and vomiting in .Recommended Vitamin B6. Dietary considerations discussed. Advised patient to call/come in if she is unable to keep any food or fluids down in a 24-hour period.TKRN Wound seroma 12/14/2014 01/21/2018 documented as of this encounter (statuses as of 08/18/2021) [facility] History of Past illness Narrative* Problem Noted Date Resolved Date Uterine size-date discrepancy, third trimester 0 07/20/2018 10/19/2018 Overview: 08/26/2018 39 wk US- EFW = 4376 grams at > 97 th%. SW EFW 96% and AFV is 22 cm at 34 weeks, consider repeat US at 39 weeks if not delivered. Bertha Orr MD Counseling for control regarding intrauterine device (IUD) 06/03/2018 03/28/2021 Overview: 06/03/2017 Desires immediate placement of Mirena IUD. SW Nausea and vomiting in 01/13/2018 07/20/2018 Overview: 01/13/2018 Patient is complaining of occasional nausea and vomiting in .Recommended Vitamin B6. Dietary considerations discussed. Advised patient to call/come in if she is unable to keep any food or fluids down in a 24-hour period.TKRN Wound seroma 12/14/2014 01/21/2018 documented as of this encounter (statuses as of 09/01/2021) [facility] History of Past illness Narrative* Problem Noted Date Resolved Date Uterine size-date discrepancy, third trimester 0 07/20/2018 10/19/2018 Overview: 08/26/2018 39 wk US- EFW = 4376 grams at > 97 th%. SW EFW 96% and AFV is 22 cm at 34 weeks, consider repeat US at 39 weeks if not delivered. Bertha Orr MD Counseling for control regarding intrauterine device (IUD) 06/03/2018 03/28/2021 Overview: 06/03/2017 Desires immediate placement of Mirena IUD. SW Nausea and vomiting in 01/13/2018 07/20/2018 Overview: 01/13/2018 Patient is complaining of occasional nausea and vomiting in .Recommended Vitamin B6. Dietary considerations discussed. Advised patient to call/come in if she is unable to keep any food or fluids down in a 24-hour period.TKRN Wound seroma 12/14/2014 01/21/2018 documented as of this encounter (statuses as of 09/15/2021) [facility] History of Past illness Narrative* Problem Noted Date Resolved Date Uterine size-date discrepancy, third trimester 0 07/20/2018 10/19/2018 Overview: 08/26/2018 39 wk US- EFW = 4376 grams at > 97 th%. SW EFW 96% and AFV is 22 cm at 34 weeks, consider repeat US at 39 weeks if not delivered. Bertha Orr MD Counseling for control regarding intrauterine device (IUD) 06/03/2018 03/28/2021 Overview: 06/03/2017 Desires immediate placement of Mirena IUD. SW Nausea and vomiting in 01/13/2018 07/20/2018 Overview: 01/13/2018 Patient is complaining of occasional nausea and vomiting in .Recommended Vitamin B6. Dietary considerations discussed. Advised patient to call/come in if she is unable to keep any food or fluids down in a 24-hour period.TKRN Wound seroma 12/14/2014 01/21/2018 documented as of this encounter (statuses as of 09/15/2021) [facility] History of Past illness Narrative* Problem Noted Date Resolved Date Uterine size-date discrepancy, third trimester 0 07/20/2018 10/19/2018 Overview: 08/26/2018 39 wk US- EFW = 4376 grams at > 97 th%. SW EFW 96% and AFV is 22 cm at 34 weeks, consider repeat US at 39 weeks if not delivered. Bertha Orr MD Counseling for control regarding intrauterine device (IUD) 06/03/2018 03/28/2021 Overview: 06/03/2017 Desires immediate placement of Mirena IUD. SW Nausea and vomiting in 01/13/2018 07/20/2018 Overview: 01/13/2018 Patient is complaining of occasional nausea and vomiting in .Recommended Vitamin B6. Dietary considerations discussed. Advised patient to call/come in if she is unable to keep any food or fluids down in a 24-hour period.TKRN Wound seroma 12/14/2014 01/21/2018 documented as of this encounter (statuses as of 09/29/2021) [facility] History of Past illness Narrative* Problem Noted Date Resolved Date Uterine size-date discrepancy, third trimester 0 07/20/2018 10/19/2018 Overview: 08/26/2018 39 wk US- EFW = 4376 grams at > 97 th%. SW EFW 96% and AFV is 22 cm at 34 weeks, consider repeat US at 39 weeks if not delivered. Bertha Orr MD Counseling for control regarding intrauterine device (IUD) 06/03/2018 03/28/2021 Overview: 06/03/2017 Desires immediate placement of Mirena IUD. SW Nausea and vomiting in 01/13/2018 07/20/2018 Overview: 01/13/2018 Patient is complaining of occasional nausea and vomiting in .Recommended Vitamin B6. Dietary considerations discussed. Advised patient to call/come in if she is unable to keep any food or fluids down in a 24-hour period.TKRN Wound seroma 12/14/2014 01/21/2018 documented as of this encounter (statuses as of 10/13/2021) [facility] History of Past illness Narrative* Problem Noted Date Resolved Date Uterine size-date discrepancy, third trimester 0 07/20/2018 10/19/2018 Overview: 08/26/2018 39 wk US- EFW = 4376 grams at > 97 th%. SW EFW 96% and AFV is 22 cm at 34 weeks, consider repeat US at 39 weeks if not delivered. Bertha Orr MD Counseling for control regarding intrauterine device (IUD) 06/03/2018 03/28/2021 Overview: 06/03/2017 Desires immediate placement of Mirena IUD. SW Nausea and vomiting in 01/13/2018 07/20/2018 Overview: 01/13/2018 Patient is complaining of occasional nausea and vomiting in .Recommended Vitamin B6. Dietary considerations discussed. Advised patient to call/come in if she is unable to keep any food or fluids down in a 24-hour period.TKRN Wound seroma 12/14/2014 01/21/2018 documented as of this encounter (statuses as of 10/27/2021) [facility] History of Past illness Narrative* Problem Noted Date Resolved Date Uterine size-date discrepancy, third trimester 0 07/20/2018 10/19/2018 Overview: 08/26/2018 39 wk US- EFW = 4376 grams at > 97 th%. SW EFW 96% and AFV is 22 cm at 34 weeks, consider repeat US at 39 weeks if not delivered. Bertha Orr MD Counseling for control regarding intrauterine device (IUD) 06/03/2018 03/28/2021 Overview: 06/03/2017 Desires immediate placement of Mirena IUD. SW Nausea and vomiting in 01/13/2018 07/20/2018 Overview: 01/13/2018 Patient is complaining of occasional nausea and vomiting in .Recommended Vitamin B6. Dietary considerations discussed. Advised patient to call/come in if she is unable to keep any food or fluids down in a 24-hour period.TKRN Wound seroma 12/14/2014 01/21/2018 documented as of this encounter (statuses as of 11/03/2021) [facility] History of Past illness Narrative* Problem Noted Date Resolved Date Uterine size-date discrepancy, third trimester 0 07/20/2018 10/19/2018 Overview: 08/26/2018 39 wk US- EFW = 4376 grams at > 97 th%. SW EFW 96% and AFV is 22 cm at 34 weeks, consider repeat US at 39 weeks if not delivered. Bertha Orr MD Counseling for control regarding intrauterine device (IUD) 06/03/2018 03/28/2021 Overview: 06/03/2017 Desires immediate placement of Mirena IUD. SW Nausea and vomiting in 01/13/2018 07/20/2018 Overview: 01/13/2018 Patient is complaining of occasional nausea and vomiting in .Recommended Vitamin B6. Dietary considerations discussed. Advised patient to call/come in if she is unable to keep any food or fluids down in a 24-hour period.TKRN Wound seroma 12/14/2014 01/21/2018 documented as of this encounter (statuses as of 11/17/2021) [facility] History of Past illness Narrative* Problem Noted Date Resolved Date Uterine size-date discrepancy, third trimester 0 07/20/2018 10/19/2018 Overview: 08/26/2018 39 wk US- EFW = 4376 grams at > 97 th%. SW EFW 96% and AFV is 22 cm at 34 weeks, consider repeat US at 39 weeks if not delivered. Bertha Orr MD Counseling for control regarding intrauterine device (IUD) 06/03/2018 03/28/2021 Overview: 06/03/2017 Desires immediate placement of Mirena IUD. SW Nausea and vomiting in 01/13/2018 07/20/2018 Overview: 01/13/2018 Patient is complaining of occasional nausea and vomiting in .Recommended Vitamin B6. Dietary considerations discussed. Advised patient to call/come in if she is unable to keep any food or fluids down in a 24-hour period.TKRN Wound seroma 12/14/2014 01/21/2018 documented as of this encounter (statuses as of 07/15/2022) [facility] Diagnosis History of macrosomia in in prior , currently in third trimester- Primary Need for vaccination Need for prophylactic vaccination and inoculation against unspecified single disease 28 weeks gestation of state, incidental [facility] Diagnosis 30 weeks gestation of - Primary state, incidental History of macrosomia in infant in prior , currently in third trimester [facility]* Diagnosis with history of section, antepartum- Primary H/O macrosomia in in prior , currently with other poor obstetric history 32 weeks gestation of state, incidental [facility]* Diagnosis H/O macrosomia in in prior , currently - Primary with other poor obstetric history Obesity complicating , third trimester 32 weeks gestation of state, incidental [facility]* Diagnosis H/O macrosomia in in prior , currently - Primary with other poor obstetric history with history of section, antepartum 34 weeks gestation of state, incidental [facility]* Diagnosis Encounter for supervision of other normal in third trimester- Primary 36 weeks gestation of state, incidental [facility]* Diagnosis Encounter for supervision of other normal in third trimester- Primary 38 weeks gestation of state, incidental [facility]* Diagnosis care and examination immediately after delivery- Primary [facility] Diagnosis Acute cough- Primary Rhinosinusitis Unspecified sinusitis (chronic) [facility] noteNo assessment information availableWSelect [facility] Work Phone: Evaluation note* Diagnosis Acute cough [facility]* Diagnosis Lower respiratory tract infection- Primary Other diseases of respiratory system, not elsewhere classified Wheezing [facility] Diagnosis Lower respiratory tract infection Other diseases of respiratory system, not elsewhere classified [facility] encounter [facility])* Diagnostic Procedure Only (Routine) - Authorized Specialty Diagnoses / Procedures Referred By Mary he Referred To Contact [facility] Diagnoses 28 weeks gestation of History of macrosomia in in prior , currently in third trimester Procedures OBSTETRIC ULTRASOUND WHI US PREG UTERUS AFTER 1ST TRIMEST GESTATION Sandra Mcneil MD [address] [place] [address] [facility] [address] [place] [address] Referral ID Status Reason Start Date Expiration Date Visits Requested Visits Authorized [id number] Authorized Auto-Generat ed Referral 08/18/2021 08/18/2022 1 1 [facility] Advance Directives No Advanced Directives Records Found Advance Directive Response Recorded Date/ Time Living Will No November 03, 2021 10:10am Power of Supervisor [place] Room No November 03 10:10am Advance Directive Response Recorded Date/ Time Living Will No September 26, 2023 11 :05am Power of Supervisor Wood Room No September 26, 2023 11:05am Chief Complaint and Reason for Visit Chief Complaint Unspecified abdomina l pain Chief Complaint Unspecified abdomina l pain r flank pain Summary Purpose Family History No Family History Records FoundNo Family History Records FoundNo Family History Records Found Additional Source Comments Source Comments (unrecognize d section and content) In the event this informatio n is protected by the Federal Confidentiality of Alcohol and Drug Abuse Patient Records regulations: The Federal rules restrict any use of the information to criminally investigate or prosecute any alcohol or drug abuse patient.[facility] the event this information is protected by the Federal Confidentiality of Alcohol and Drug Abuse Patient Records regulations: The Federal rules restrict any use of the information to criminally investigate or prosecute any alcohol or drug abuse patient.[facility] HospitalIn the event this information is protected by the Federal Confidentiality of Alcohol and Drug Abuse Patient Records regulations: The Federal rules restrict any use of the information to criminally investigate or prosecute any alcohol or drug abuse patient.[facility] HospitalIn the event this information is protected by the Federal Confidentiality of Alcohol and Drug Abuse Patient Records regulations: The Federal rules restrict any use of the information to criminally investigate or prosecute any alcohol or drug abuse patient.[facility] HospitalIn the event this information is protected by the Federal Confidentiality of Alcohol and Drug Abuse Patient Records regulations: The Federal rules restrict any use of the information to criminally investigate or prosecute any alcohol or drug abuse patient.[facility] HospitalIn the event this information is protected by the Federal Confidentiality of Alcohol and Drug Abuse Patient Records regulations: The Federal rules restrict any use of the information to criminally investigate or prosecute any alcohol or drug abuse patient.[facility] HospitalIn the event this information is protected by the Federal Confidentiality of Alcohol and Drug Abuse Patient Records regulations: The Federal rules restrict any use of the information to criminally investigate or prosecute any alcohol or drug abuse patient.[facility] HospitalIn the event this information is protected by the Federal Confidentiality of Alcohol and Drug Abuse Patient Records regulations: The Federal rules restrict any use of the information to criminally investigate or prosecute any alcohol or drug abuse patient.[facility] HospitalIn the event this information is protected by the Federal Confidentiality of Alcohol and Drug Abuse Patient Records regulations: The Federal rules restrict any use of the information to criminally investigate or prosecute any alcohol or drug abuse patient.[facility] HospitalIn the event this information is protected by the Federal Confidentiality of Alcohol and Drug Abuse Patient Records regulations: The Federal rules restrict any use of the information to criminally investigate or prosecute any alcohol or drug abuse patient.[facility] HospitalIn the event this information is protected by the Federal Confidentiality of Alcohol and Drug Abuse Patient Records regulations: The Federal rules restrict any use of the information to criminally investigate or prosecute any alcohol or drug abuse patient.[facility] HospitalIn the event this information is protected by the Federal Confidentiality of Alcohol and Drug Abuse Patient Records regulations: The Federal rules restrict any use of the information to criminally investigate or prosecute any alcohol or drug abuse patient.[facility] HospitalIn the event this information is protected by the Federal Confidentiality of Alcohol and Drug Abuse Patient Records regulations: The Federal rules restrict any use of the information to criminally investigate or prosecute any alcohol or drug abuse patient.[facility] HospitalIn the event this information is protected by the Federal Confidentiality of Alcohol and Drug Abuse Patient Records regulations: The Federal rules restrict any use of the information to criminally investigate or prosecute any alcohol or drug abuse patient.[facility] Reason for Visit (unrecogniz ed section and content) Reason Onset Date Comments Care 08/18/2021 Reason Onset Date Comments Care 09/01/2021 Reason Onset Date Comments Care 09/15/2021 Reason Comments US Specialty Diagnoses / Procedures Referred By Mary he Referred To Contact [facility] Diagnoses 28 weeks gestation of History of macrosomia in infant in prior , currently in third trimester Procedures OBSTETRIC ULTRASOUND WHI US PREG UTERUS AFTER 1ST TRIMEST GESTATION Sandra Mcneil MD [address] [place] [address] [facility] [address] [place] [address] Referral ID Status Reason Start Date Expiration Date V isits Requested Visits Authorized [id number] Closed Auto-Generate d Referral 08/18/2021 08/18/2022 1 1 Reason Onset Date Comments Care 09/29/2021 Reason Onset Date Comments Care 10/13/2021 Reason Onset Date Comments Care 10/27/2021 Reason Comments Ob Delivery Note Reason Comments Nasal Congestion drainage, cough, bod yaches, wheezing, diarrhea and headache x 10 days Reason Comments Cough Chest congestion, fe rosa, chills, fatigue x4 days, pneumonia exposure Reason Comments Results Care Teams (unrecognized sec tion and content) Field Observer Relationship Specialty Start Date End Date Kanchan Cunha PCP - General Family Practice 08/27/12 Field Observer Relationship Specialty Start Date End Date Kanchan Cunha PCP - General Family Practice 08/27/12 Field Observer Relationship Specialty Start Date End Date Kanchan uCnha PCP - General Family Practice 08/27/12 Field Observer Relationship Specialty Start Date End Date Kanchan Cunha PCP - General Family Practice 08/27/12 Field Observer Relationship Specialty Start Date End Date Kanchan Cunha PCP - General Family Practice 08/27/12 Field Observer Relationship Specialty Start Date End Date Rayna Luna MD [address] [place] [address] [place], [place] [id number] PCP - General Family Medicine 07/15/22 Team Status: Active Member Role Status Dates Dr. Kanchan Cunha MD Family Provider Active Dr. Rayna Luna MD Primary Care Provider Active Team Status: Inactive Member Role Status Dates CASSI TijerinaC Primary Care Provider, Attending Talib gonzalez Active Team Status: Inactive Member Role Status Dates AGUSTINA Tijerina Attending Provider, Referring Prov ider Active Dr. Rayna Luna MD Primary Care Provider Active Team Status: Inactive Member Role Status Dates Dr. Rayna Luna MD Primary Care Provider Active Dr. Sharita Pearson MD Emergency Provider Active Field Observer Relationship Specialty Start Date End Date Rayna Luna MD [address] [place] [address] [place], [place] [id number] PCP - General Family Medicine 07/15/22 Field Observer Relationship Specialty Start Date End Date Rayna Luna MD [address] [place] [address] PCP - General Family Medicine 07/15/22 Field Observer Relationship Specialty Start Date End Date Rayna Luna MD [address] [place] [address] PCP - General Family Medicine 07/15/22 Field Observer Relationship Specialty Start Date End Date Rayna Luna MD [address] [place], [place] [id number] PCP - General Family [facility] 07/15/22 Goals (unrecognized section and content) Goals may be documented in a n alternate sectionGoals may be documented in an alternate sectionGoals may be documented in an alternate section INFORMATION SOURCE (unrecogn ized section and content) DATE CREATED AUTHOR 02/21/2024 [facility] DATE CREATED AUTHOR AUTHOR'S ORGANIZ ATION 03/17/2024 [facility] DATE CREATED AUTHOR AUTHOR'S ORGANIZ ATION 04/06/[address] [facility] FOR RECORDS PERTAINING TO PATIENTS WHO ARE OR HAVE BEEN ENROLLED IN A CHEMICAL DEPENDENCY/SUBSTANCEABUSE PROGRAM, SOME INFORMATION MAY BE OMITTED. This clinical summary was aggregated from multiple sources. Caution should be exercised in using it in the provision of clinical care. This summary normalizes information from multiple sources, and as a consequence, information in this document may materially change the coding, format and clinical context of patient data. In addition, data may be omitted in some cases. CLINICAL DECISIONS SHOULD BE BASED ON THE PRIMARY CLINICAL RECORDS. [employer] provides no warranty or guarantee of the accuracy or completeness of information in this document.
== END | disposition home or self-care (01) ==
LOC: LABSPEC 13:11
PROVIDERS: PCP Family Medicine; Visit Provider Family Medicine
DX: R30.0 Dysuria (principal)
CPT/HCPCS: 87077; 87086; 87088; 87186